=== PATIENT | female | born 1955 | race Caucasian/White ===

== ENCOUNTER 2019-01-02 10:56 | Day surgery (SDC) | payer MEDICARE, OTHER ==
[2018-12-31 13:10] VITALS: BMI 17.6
[~2019-01-02 10:56] MED LIST: ALBUTEROL NEB (CONC) 2.5 MG/0.5 ML INHALATION ONE; LACTATED RINGERS 1,000 ML IV SCH; LIDOCAINE 1% 20 ML VIAL (10MG/ML) FOR IV START INTRADERMA PRN; LIDOCAINE 2% (PF) 20 MG/ML 5 ML VIAL INHALATION ONE; LIDOCAINE VISCOUS 300 MG/15 ML CUP MUCOUS MEM ONE; SODIUM CHLORIDE 0.9% 1,000 ML IV SCH
[2019-01-02 11:13] VITALS: TEMP 97.5
[2019-01-02] MEDS ORDERED: PROPOFOL 10 MG/ML 20 ML VIAL IV ONE (11:55)
[2019-01-02] MEDS ORDERED: LIDOCAINE 1% INJ 10MG/ML (20 ML MDV) ONE (11:55)
[2019-01-02] MEDS ORDERED: MIDAZOLAM 2 MG/2 ML VIAL ONE (11:55)
[2019-01-02] MEDS ORDERED: LIDOCAINE 2% INJ 20 MG/ML INTRATRACH ONE (12:04)
[2019-01-02 12:57] VITALS: RESP 16
[2019-01-02 13:49] VITALS: BP 148/92; PULSE 78
--- NOTE | 2019-01-02 13:54 | XR ---
EXAMINATION TYPE: XR chest 1V portable DATE OF EXAM: 01/02/2019 COMPARISON: NONE HISTORY: Status post bronchoscopy and biopsy TECHNIQUE: Single frontal view of the chest is obtained. FINDINGS: Patient is rotated. Prominent lung volumes are compatible with underlying COPD. There is r ight hilar prominence. Right apical pleural thickening is present. No evident pneumothorax or pleural effusion. Heart is small. Aorta is dense. IMPRESSION: No evident complication status post lung biopsy.
--- NOTE | 2019-01-02 14:03 | PCN ---
PROCEDURE NOTE PREOPERATIVE DIAGNOSIS: Right upper lobe mediastinal lymphadenopathy. POSTOPERATIVE DIAGNOSIS: Right upper lobe mediastinal lymphadenopathy. PROCEDURE DESCRIPTION: This procedure was done under conscious sedation. The patient was brought into the endoscopy suite, and under conscious sedation, a flexible bronchoscopy was done. The bronchoscope was inserted in the left nostril and was advanced into the upper airway. Examination of the posterior pharynx, larynx, epiglottis and vocal cords were within normal limits and all of the upper airway structures were nonsignificant and within normal. Vocal cords were symmetric in the midline. A total of 2 mL of 1% lidocaine was applied to the vocal cords. Following that, the bronchoscope was sent into upper trachea and examination of the tracheobronchial tree was done. Trachea was within normal limits. The right mainstem bronchus was within normal; however, anteriorly at the distal right mainstem bronchus the bifurcation to the right upper lobe, there was some extrinsic compression, and some endobronchial irregularities, probably related to the right hilar lymphadenopathy. Bronchus intermedius was patent, right middle lobe, right lower lobe was seen and all of the segments and subsegments were within normal limits. Examination of the left side including the left mainstem bronchus., left upper lobe bronchus, left lower lobe bronchus and various segments and subsegments were within normal limits. At this point, the bronchoscope was moved to the main trachea and transbronchial needle aspirate of the subcarinal and right hilar lymph node was done. I used a 19-gauge cytology and a 21-gauge pathology needle. After taking several passes, the bronchoscope was moved to the right upper lobe, endobronchial biopsies of the right upper lobe, endobronchial irregularities of the distal right mainstem bronchus was done. Similarly, endobronchial brushings of this area was done. The patient tolerated the procedure well. We encountered some endobronchial bleeding at the site of the brushing and endobronchial biopsies in total amount to be less than 10 mL. The bleeding stopped spontaneously without any intervention. Bronchoscope was removed and the patient was transferred to recovery in stable condition. The patient will be monitored, discharged home once cleared by Anesthesia to be followed up with me in the office to discuss the results of the biopsy. MMODL / IJN: [id number] /
== END 2019-01-02 14:18 | disposition home or self-care (01) ==
LOC: ORWHC2ENDO 10:56
PROVIDERS: ATTEND Internal Medicine Critical Care Medicine
DX: C34.11 Malignant neoplasm of upper lobe, right bronchus or lung (principal); J44.1 Chronic obstructive pulmonary disease with (acute) exacerbation; G89.29 Other chronic pain; M54.9 Dorsalgia, unspecified; F17.210 Nicotine dependence, cigarettes, uncomplicated; Z79.899 Other long term (current) drug therapy; Z90.710 Acquired absence of both cervix and uterus; Z97.2 Presence of dental prosthetic device (complete) (partial); Z83.1 Family history of other infectious and parasitic diseases
CPT/HCPCS: 94640; 88104; 88305; 88173; 88342; 88341; 71045; 31629; 31623; J2001 ×3; J2250; J2704; 31625; 31633

== ENCOUNTER 2019-01-20 09:54 | Day surgery (SDC) | payer MEDICARE, OTHER ==
[2019-01-16 16:58] VITALS: BMI 16.9
[~2019-01-20 09:54] MED LIST changes: -ALBUTEROL NEB (CONC) 2.5 MG/0.5 ML INHALATION ONE; +DEXAMETHASONE SOD PHOSPHATE 10 MG/ML 1 ML VIAL IV ONE; -LIDOCAINE 2% (PF) 20 MG/ML 5 ML VIAL INHALATION ONE; -LIDOCAINE VISCOUS 300 MG/15 ML CUP MUCOUS MEM ONE; +MORPHINE SULFATE 2 MG/ML SYRINGE IV PRN; +ONDANSETRON 4 MG/2 ML VIAL IVP PRN; +Pre Op ABX Message 1 EACH MISC MISCELLANE ONE; -SODIUM CHLORIDE 0.9% 1,000 ML IV SCH
--- NOTE | 2019-01-20 10:34 | P.GSHP ---
History of Present Illness H&P Date: 01/20/19 Chief Complaint: Lung cancer Patient presents today for Port-A-Cath placement. Patient with recent diagnosis of lung cancer. She is to begin chemotherapy in the near future. She has not had a port previously. No access related issues that she is aware of. Past Medical History Past Medical History: Asthma, Cancer, COPD, GERD/Reflux, Osteoarthritis (OA), Skin Disorder Additional Past Medical History / Comment(s): "mass in rt lung", new "Small Cell Lung CA" diagnosed. epileptic (not currently on any rx for), last seizure 12/2018, occ palpitations mostly at noc, Psoriasis patches on legs,elbows and sca lp, "top of rt ear bit off age 15" History of Any Multi-Drug Resistant Organisms: None Reported Past Surgical History: Breast Surgery, Ear Surgery, Hysterectomy, Tonsillectomy Additional Past Surgical History / Comment(s): ryan breast lumpectomy ("d/t crystallization"), oral surgery, surgery on rt ear after injury. Bronchoscopy 01/02/19. Past Anesthesia/Blood Transfusion Reactions: Family History of Problems w/ Anesthesia Additional Past Anesthesia/Blood Transfusion Reaction / Comment(s): "dad on operative table-he had sepsis from blood clot in his leg" Smoking Status: Current every day smoker - Past Family History Father Family Medical History: Deep Vein Thrombosis (DVT) Additional Family Medical History / Comment(s): "Gangrene in leg, on the table," possible DVT Medications and Allergies Home Medications Medication Instructions Recorded Confirmed Type Acetaminophen [Tylenol Extra 500 - 1,000 mg PO DIRECTED PRN 12/31/18 01/20/19 History Strength] Albuterol Inhaler [Ventolin Hfa 1 - 2 puff INHALATION DIRECTED 12/31/18 01/20/19 History Inhaler] PRN Albuterol Nebulized [Ventolin 2.5 mg INHALATION TID PRN 12/31/18 01/20/19 History Nebulized] Ibuprofen [Advil] 200 mg PO Q8HR PRN 12/31/18 01/20/19 History Melatonin 3 mg PO HS 12/31/18 01/20/19 History Vitamin C/Biotin [Hair, Skin and 3 tab PO DAILY 12/31/18 01/20/19 History Nails] Famotidine [Pepcid AC] 10 mg PO DAILY PRN 01/16/19 01/20/19 History Tiotropium [place] [Spiriva] 1 cap INHALATION DAILY 01/16/19 01/20/19 History Allergies Allergy/AdvReac Type Severity Reaction Status Date / Time coconut Allergy gets dizzy Verified 01/20/19 10:10 and had a seizure mushroom Allergy SOB, Verified 01/20/19 10:10 tongue swelling Surgical - Exam Vital Signs Temp Pulse Resp BP Pulse Ox 97.6 F 107 H 17 171/84 96 01/20/19 10:12 01/20/19 10:12 01/20/19 10:12 01/20/19 10:12 01/20/19 10:12 Physical exam: General: Well-developed, well-nourished HEENT: Normocephalic, sclerae nonicteric Abdomen: Nontender, nondistended Extremities: No edema Neuro: Alert and oriented Assessment and Plan (1) Lung cancer Narrative/Plan: Will proceed with Port-A-Cath placement at this time. Risks of bleeding, infection, DVT, pneumothorax, catheter malfunction, anesthesia related complications were discussed. The patient understands and wishes to proceed. Current Visit: Yes Status: Acute Code(s): C34.90 - MALIGNANT NEOPLASM OF UNSP PART OF UNSP BRONCHUS OR LUNG SNOMED Code(s): 969676189
[2019-01-20] MEDS ORDERED: HEPARIN SODIUM,PORCINE 5,000 UNIT/ML 1 ML VIAL SQ ONE (10:50)
[2019-01-20] MEDS ORDERED: MIDAZOLAM 2 MG/2 ML VIAL ONE (10:55)
[2019-01-20] MEDS ORDERED: PROPOFOL 10 MG/ML 20 ML VIAL IV ONE (10:55)
[2019-01-20] MEDS ORDERED: LIDOCAINE 1% INJ 10MG/ML (20 ML MDV) ONE (10:55)
[2019-01-20] MEDS ORDERED: fentaNYL (PF) 50 MCG/ML 2 ML AMP ONE (10:55)
[2019-01-20] MEDS ORDERED: SODIUM CHLORIDE 0.9% 50 ML with ceFAZolin 2,000 MG IV ONE ×2 (11:08)
[2019-01-20] MEDS ORDERED: LIDOCAINE (PF) 10 MG/ML 2 ML VIAL SQ ONE ×2 (11:25)
[2019-01-20] MEDS ORDERED: HEPARIN SODIUM,PORCINE 100 UNIT/ML 5 ML VIAL IV ONE (11:29)
[2019-01-20] MEDS ORDERED: HYDROcodone/APAP 5-325MG 1 EACH TAB PO PRN (12:07)
[2019-01-20] MEDS ORDERED: NALOXONE 0.4 MG/ML 1 ML VIAL IV PRN (12:07)
[2019-01-20 12:10] VITALS: TEMP 98.1
--- NOTE | 2019-01-20 12:16 | P.OP ---
Date of Procedure: 01/20/19 Procedure(s) Performed: PREOPERATIVE DIAGNOSIS: Lung cancer, right neck skin tag POSTOPERATIVE DIAGNOSIS: Same PROCEDURE: Port-A-Cath placement, excision right neck skin tag SURGEON: Matt EBL: Minimal ANESTHESIA: Sedation COMPLICATIONS: None OPERATIVE PROCEDURE: Patient was brought and placed on the operative table in the supine position. The patient was sedated per anesthesia that time. The chest and neck were prepped and draped in usual sterile fashion. The ultrasound probe was used to identify the location of the right internal jugular vein. The skin was localized with lidocaine. The Seldinger needle was advanced into the IJ under ultrasound guidance. The wire was advanced through the needle under fluoroscopic guidance into the superior vena cava. A port pocket was created in the right infraclavicular location. The catheter was tunneled from the wire entrance site to the port pocket. The port was then connected to the catheter. The dilator introducer was threaded over the guidewire. The guidewire and dilator were then removed. The catheter was advanced through the introducer and introducer was then removed. The tip was seen to be in the right atrial junction. Port was flushed with both saline and a Hep-Lock solution. There was good flow both in and out of the port. The port was sutured in underlying tissues using 3-0 silk sutures. The subcutaneous tissues were reapproximated using 3-0 Vicryl sutures and the skin at both locations using 4-0 Monocryl sutures. Following that the small skin tag present in the upper aspect of the patient's right neck was excised sharply. Spot cautery was used. Bacitracin was applied. Skin tag was not sent to pathology. Skin glue and sterile dressings then applied. DISPOSITION: Stable to recovery room
--- NOTE | 2019-01-20 13:07 | XR ---
EXAMINATION TYPE: XR chest 1V confirm line [facility] DATE OF EXAM: 01/20/2019 COMPARISON: 01/02/2019 HISTORY: Line placement TECHNIQUE: Single frontal view of the chest is obtained. FINDINGS: There is no focal air space opacity, pleural effusion, or pneumothorax seen. The cardiac silhouette size is within normal limits. The osseous structures are intact. Stable right apical ple ural thickening or mass. Mediport seen with tip overlying the SVC. Hyperinflation suggests COPD. Athe rosclerotic change aorta. Pulmonary arteries and right hilum are enlarged. Adenopathy in the right hi lum not excluded. IMPRESSION: 1. Right hilar enlargement correlate for adenopathy or mass. There also is right apical pleural-based nodularity is stable from prior exam underlying neoplasm or inflammatory change in the differential diagnosis. 2. Mediport appears in good position with tip overlying the SVC. No sizable pneumothorax.
[2019-01-20] MEDS ORDERED: HYDROcodone/APAP 5-325MG 1 EACH TAB PO ONE (13:31)
[2019-01-20 13:35] VITALS: BP 160/85; PULSE 94; RESP 18
--- NOTE | 2019-01-21 10:55 | FL ---
EXAMINATION TYPE: FL guided central line placement HISTORY: Fluoroscopy time Impression: 1. Fluoroscopy support provided to the referring physician 15 seconds. THANIA
== END 2019-01-20 14:15 | disposition home or self-care (01) ==
LOC: OR 09:54
PROVIDERS: ATTEND Surgery
DX: C34.91 Malignant neoplasm of unspecified part of right bronchus or lung (principal); L91.8 Other hypertrophic disorders of the skin; J44.9 Chronic obstructive pulmonary disease, unspecified; K21.9 Gastro-esophageal reflux disease without esophagitis; M19.90 Unspecified osteoarthritis, unspecified site; G40.909 Epilepsy, unspecified, not intractable, without status epilepticus; L40.9 Psoriasis, unspecified; R00.2 Palpitations; F17.210 Nicotine dependence, cigarettes, uncomplicated; Z90.710 Acquired absence of both cervix and uterus; Z79.1 Long term (current) use of non-steroidal anti-inflammatories (NSAID); Z79.899 Other long term (current) drug therapy; Z91.018 Allergy to other foods
CPT/HCPCS: 36561; 77001 ×2; 76937; 11200; C1788; J2250; J2001 ×2; J1644; J1642; J1100; J2405; J0690; J3010; J2704; 77002

== ENCOUNTER 2019-01-24 12:21 | Observation (INO) | payer MEDICARE, OTHER ==
[2019-01-24] MEDS ORDERED: SODIUM CHLORIDE 0.9% 500 ML 500 ML IV STA (12:34)
--- NOTE | 2019-01-24 12:40 | ED ---
General Adult HPI - General Chief complaint: Shortness of Breath Stated complaint: SOB/lower back pain Time Seen by Provider: 01/24/19 12:25 Source: EMS, RN notes reviewed Mode of arrival: EMS Limitations: no limitations - History of Present Illness Initial comments: This is a 63-year-old female with a past medical history significant for COPD and small cell lung cancer which she was diagnosed with one month ago. Patient states last night she started having difficulty breathing and she took some breathing treatments but it did not seem to help. Patient states she called EMS when EMS got there they gave her some steroids as well as a breathing treatment she feels considerably better. Patient states she also has a squeezing sensation in her chest after she had a breathing treatment. Patient denies any fever chills or cough. Patient denies lightheadedness dizziness or near syncopal episode. Patient denies abdominal pain patient has nausea vomiting diarrhea. - Related Data Home Medications Medication Instructions Recorded Confirmed Acetaminophen [Tylenol Extra 500 - 1,000 mg PO Q4H PRN 12/31/18 01/24/19 Strength] Albuterol Inhaler [Ventolin Hfa 1 - 2 puff INHALATION RT-Q4H PRN 12/31/18 Inhaler] Albuterol Nebulized [Ventolin 2.5 mg INHALATION RT-TID PRN 12/31/18 01/24/19 Nebulized] Tiotropium [place] [Spiriva] 1 cap INHALATION RT-DAILY 01/16/19 01/24/19 Previous Rx's Medication Instructions Recorded Hydrocodone/Acetaminophen [[place] 1 tab PO Q4-6H PRN 3 Days #18 tab 01/20/19 5-325] Allergies Allergy/AdvReac Type Severity Reaction Status Date / Time coconut Allergy gets dizzy Verified 01/24/19 12:32 and had a seizure mushroom Allergy SOB, Verified 01/24/19 12:32 tongue swelling Review of Systems ROS Statement: Those systems with pertinent positive or pertinent negative responses have been documented in the HPI. ROS Other: All systems not noted in ROS Statement are negative. Past Medical History Past Medical History: Asthma, Cancer, COPD, GERD/Reflux, Osteoarthritis (OA), Skin Disorder Additional Past Medical History / Comment(s): "mass in rt lung", new "Small Cell Lung CA" diagnosed. epileptic (not currently on any rx for), last seizure 12/2018, occ palpitations mostly at noc, Psoriasis patches on legs,elbows and sca lp, "top of rt ear bit off age 15" History of Any Multi-Drug Resistant Organisms: None Reported Past Surgical History: Breast Surgery, Ear Surgery, Hysterectomy, Tonsillectomy Additional Past Surgical History / Comment(s): ryan breast lumpectomy ("d/t crystallization"), oral surgery, surgery on rt ear after injury. Bronchoscopy 01/02/19. Past Anesthesia/Blood Transfusion Reactions: Family History of Problems w/ Anesthesia Additional Past Anesthesia/Blood Transfusion Reaction / Comment(s): "dad on operative table-he had sepsis from blood clot in his leg" Past Psychological History: Depression Smoking Status: Current every day smoker Past Alcohol Use History: Daily Past Drug Use History: None Reported - Past Family History Father Family Medical History: Deep Vein Thrombosis (DVT) Additional Family Medical History / Comment(s): "Gangrene in leg, on the table," possible DVT General Exam - General Exam Comments Initial Comments: GENERAL: Patient is well-developed and well-nourished. Patient is nontoxic and well- hydrated and is in mild distress. ENT: Neck is soft and supple. No significant lymphadenopathy is noted. Oropharynx is clear. Moist mucous membranes. Neck has full range of motion without e liciting any pain. EYES: The sclera were anicteric and conjunctiva were pink and moist. Extraocular movements were intact and pupils were equal round and reactive to light. Eyelids were unremarkable. PULMONARY: Unlabored respirations. Good breath sounds bilaterally. No audible rales rhonchi or wheezing was noted. CARDIOVASCULAR: There is a regular rate and rhythm without any murmurs gallops or rubs. ABDOMEN: Soft and nontender with normal bowel sounds. No palpable organomegaly was no lacey. There is no palpable pulsatile mass. SKIN: Skin is clear with no lesions or rashes and otherwise unremarkable. NEUROLOGIC: Patient is alert and oriented x3. Cranial nerves II through XII are grossly intact. Motor and sensory are also intact. Normal speech, volume and content. Symmetrical smile. MUSCULOSKELETAL: Normal extremities with adequate strength and full range of motion. No lower extremity swelling or edema. No calf tenderness. LYMPHATICS: No significant lymphadenopathy is noted PSYCHIATRIC: Normal psychiatric evaluation. Limitations: no limitations Course Vital Signs 10/01/24/19 01/24/19 12:23 12:27 12:30 Temperature 98.0 F Pulse Rate 90 76 Respiratory 20 18 Rate Blood Pressure 153/81 153/81 O2 Sat by Pulse 95 96 96 Oximetry 01/24/19 01/24/19 01/24/19 13:00 13:30 14:00 Temperature Pulse Rate 78 76 84 Respiratory 16 18 16 Rate Blood Pressure 131/97 132/87 130/78 O2 Sat by Pulse Oximetry 01/24/19 14:30 Temperature 98.0 F Pulse Rate 82 Respiratory 20 Rate Blood Pressure 132/79 O2 Sat by Pulse Oximetry Medical Decision Making - Medical Decision Making EKG shows sinus rhythm with occasional PVC at a rate of 91 bpm NH interval 218 QRS is 90 QT interval 398 QTC is 489. Patient's EKG shows no ST segment elevation. Patient's computed tomography scan showed significant mass effect on the right upper lobe from the neoplasm there is also significant adenopathy. Patient was post have a PET scan today at the hospital but because she was in the emergency department she missed that appointment. I spoke with some physicians and he agreed to accept the patient accept the patient and I wrote admitting orders. - Lab Data Result diagrams: 01/24/19 12:49 01/24/19 12:49 Lab Results 01/24/19 01/24/19 01/24/19 Range/Units 12:49 12:49 12:49 WBC 7.0 (3.8-10.6) k/uL RBC 4.20 (3.80-5.40) m/uL Hgb 13.6 (11.4-16.0) gm/dL Hct 41.2 (34.0-46.0) % MCV 98.1 (80.0-100.0) fL MCH 32.4 (25.0-35.0) pg MCHC 33.0 (31.0-37.0) g/dL RDW 13.7 (11.5-15.5) % Plt Count 156 (150-450) k/uL Neutrophils % 81 % Lymphocytes % 12 % Monocytes % 5 % Eosinophils % 1 % Basophils % 1 % Neutrophils # 5.7 (1.3-7.7) k/uL Lymphocytes # 0.8 L (1.0-4.8) k/uL Monocytes # 0.3 (0-1.0) k/uL Eosinophils # 0.1 (0-0.7) k/uL Basophils # 0.1 (0-0.2) k/uL PT 10.4 (9.0-12.0) sec INR 1.0 (<1.2) APTT 22.8 (22.0-30.0) sec D-Dimer 1.70 H (<0.60) mg/L FEU Sodium 140 (137-145) mmol/L Potassium 4.6 (3.5-5.1) mmol/L Chloride 109 H (98-107) mmol/L Carbon Dioxide 19 L (22-30) mmol/L Anion Gap 12 mmol/L BUN 15 (7-17) mg/dL Creatinine 0.56 (0.52-1.04) mg/dL Est GFR (CKD-EPI)AfAm >90 (>60 ml/min/1.73 sqM) Est GFR (CKD-EPI)NonAf >90 (>60 ml/min/1.73 sqM) Glucose 101 H (74-99) mg/dL Calcium 9.2 (8.4-10.2) mg/dL Magnesium 1.7 (1.6-2.3) mg/dL Total Bilirubin 1.4 H (0.2-1.3) mg/dL AST 79 H (14-36) U/L ALT 15 (9-52) U/L Alkaline Phosphatase 68 (38-126) U/L Troponin I (0.000-0.034) ng/mL Total Protein 7.1 (6.3-8.2) g/dL Albumin 4.2 (3.5-5.0) g/dL 01/24/19 Range/Units 12:49 WBC (3.8-10.6) k/uL RBC (3.80-5.40) m/uL Hgb (11.4-16.0) gm/dL Hct (34.0-46.0) % MCV (80.0-100.0) fL MCH (25.0-35.0) pg MCHC (31.0-37.0) g/dL RDW (11.5-15.5) % Plt Count (150-450) k/uL Neutrophils % % Lymphocytes % % Monocytes % % Eosinophils % % Basophils % % Neutrophils # (1.3-7.7) k/uL Lymphocytes # (1.0-4.8) k/uL Monocytes # (0-1.0) k/uL Eosinophils # (0-0.7) k/uL Basophils # (0-0.2) k/uL PT (9.0-12.0) sec INR (<1.2) APTT (22.0-30.0) sec D-Dimer (<0.60) mg/L FEU Sodium (137-145) mmol/L Potassium (3.5-5.1) mmol/L Chloride (98-107) mmol/L Carbon Dioxide (22-30) mmol/L Anion Gap mmol/L BUN (7-17) mg/dL Creatinine (0.52-1.04) mg/dL Est GFR (CKD-EPI)AfAm (>60 ml/min/1.73 sqM) Est GFR (CKD-EPI)NonAf (>60 ml/min/1.73 sqM) Glucose (74-99) mg/dL Calcium (8.4-10.2) mg/dL Magnesium (1.6-2.3) mg/dL Total Bilirubin (0.2-1.3) mg/dL AST (14-36) U/L ALT (9-52) U/L Alkaline Phosphatase (38-126) U/L Troponin I <0.012 (0.000-0.034) ng/mL Total Protein (6.3-8.2) g/dL Albumin (3.5-5.0) g/dL Disposition Clinical Impression: COPD exacerbation, History of lung cancer Disposition: ADMITTED IP TO THIS HOSP Referrals: None,Stated [Primary Care Provider] - 1-2 days Time of Disposition: 15:42
[2019-01-24 13:10] LABS: Basophils # (A) 0.1 k/uL (0-0.2); Basophils % (A) 1 %; Eosinophils # (A) 0.1 k/uL (0-0.7); Eosinophils % (A) 1 %; HCT 41.2 % (34.0-46.0); HGB 13.6 gm/dL (11.4-16.0); Lymphocytes # (A) 0.8 k/uL (1.0-4.8); Lymphocytes % (A) 12 %; MCH 32.4 pg (25.0-35.0); MCV 98.1 fL (80.0-100.0); Mean Platelet Volume 7.4; Monocytes # (A) 0.3 k/uL (0-1.0); Monocytes % (A) 5 %; Neutrophils # (A) 5.7 k/uL (1.3-7.7); Neutrophils % (A) 81 %; Platelet Count 156 k/uL (150-450); RDW 13.7 % (11.5-15.5)
--- NOTE | 2019-01-24 13:21 | XR ---
EXAMINATION TYPE: XR chest 2V DATE OF EXAM: 01/24/2019 COMPARISON: Chest x-ray 4 days ago. Outside CTA chest December 11, 2018. HISTORY: Difficulty breathing border. Right-sided chest pain today. TECHNIQUE: Frontal and lateral views of the chest are obtained. FINDINGS: There is stable right internal jugular Mediport catheter. Background chronic emphysematous change with right apical masslike pleural thickening redemonstrated. No new focal airspace opacity, pleural effusion, or pneumothorax. Persistent right hilar fullness corresponding to mass or adenopath y. Atherosclerotic change in the thoracic aorta. Osseous structures are intact. Cardiac silhouette size remains within normal limits. IMPRESSION: Overall stable findings from most recent x-ray. Chronic changes without acute pulmonary process.
[2019-01-24 13:24] LABS: ALT 15 U/L (9-52); AST 79 U/L (14-36); African American GFR (CKD) >90 (>60 ml/min/1.73 sqM); Albumin 4.2 g/dL (3.5-5.0); Alkaline Phosphatase 68 U/L (38-126); Anion Gap 12 mmol/L; Blood Urea Nitrogen 15 mg/dL (7-17); Calcium 9.2 mg/dL (8.4-10.2); Carbon Dioxide 19 mmol/L (22-30); Chloride 109 mmol/L (98-107); Glucose 101 mg/dL (74-99); Magnesium 1.7 mg/dL (1.6-2.3); Non-African American GFR(CKD) >90 (>60 ml/min/1.73 sqM); Prothrombin Time 10.4 sec (9.0-12.0); Sodium 140 mmol/L (137-145); Total Bilirubin 1.4 mg/dL (0.2-1.3); Total Protein 7.1 g/dL (6.3-8.2)
[2019-01-24 13:25] LABS: Partial Thromboplastin Time 22.8 sec (22.0-30.0)
[2019-01-24 13:46] LABS: Potassium 4.6 mmol/L (3.5-5.1)
[2019-01-24 14:20] LABS: D-Dimer 1.7 mg/L FEU (<0.60)
--- NOTE | 2019-01-24 15:28 | CT ---
EXAMINATION TYPE: CT chest angio for PE DATE OF EXAM: 01/24/2019 COMPARISON: Outside CT dated 12/11/2018 HISTORY: Difficulty breathing, back pain and elevated d-dimer. CT DLP: 210.5 mGycm. Automated Exposure Control for Dose Reduction was Utilized. CONTRAST: CTA scan of the thorax is performed with IV Contrast, patient injected with 80 mL of Isovue 370, pulm onary embolism protocol. MIP Images are created on CT scanner and reviewed. FINDINGS: LUNGS: There is a right perihilar mass encasing the hilar vasculature with mass effect on the right u pper lobe pulmonary arteries and bronchi. This mass measures 6.7 x 4.1 cm. There is associated peribr onchial cuffing and downstream atelectasis remaining in the suprahilar region from this mass. There is a second right apical mass measuring 3.4 x 3.6 cm that is pleural-based. This is of the righ t lung apex laterally. Medial pleural thickening is also seen. Findings are superimposed upon advance d centrilobular emphysematous change. Multiple satellite nodules are seen inferiorly with the farthes t inferior measuring 5 mm on lung algorithm image 42. Other pulmonary nodules are sub-5 mm in the ant erior right upper lobe and subpleural space. Right middle lobe pulmonary nodule is solid and 3 mm. 2 mm subpleural nodules also seen in the right middle lobe. Focal pleural thickening in the right middl e lobe is marked on image 103. Few other areas of pleural thickening are seen on the right. Minimal r ight basilar subsegmental atelectasis. On the left there are a few scattered subcentimeter nodules an d nodular left apical pleural parenchymal scarring. 3 mm solid nodule on image 37. 5 mm nodule on the left lung base on image 121. 2 mm solid nodule in the left lower lobe on image 117. Suspicious 8 mm pulmonary nodule in the superior segment of the left lower lobe on image 72 is solid. MEDIASTINUM: There is satisfactory enhancement of the pulmonary artery and its branches, there is no CT evidence for pulmonary embolism. Subcarinal lymph node measures 1.2 cm in short axis. Conglomerati on of right hilar lymph nodes is inseparable from the mass as well as pretracheal abnormal lymph node abutting the mass measuring 1.6 cm in short axis. Superior mediastinal lymph nodes measure up to 7 m m in short axis on image 36. Prominent right supraclavicular lymph nodes are seen measuring up to 8 m m in short axis. No cardiomegaly or pericardial effusion is seen. OTHER: Right-sided Mediport is seen. IMPRESSION: Right perihilar infiltrative mass extending into the mediastinum and narrowing the right upper lobe bronchi compatible with neoplasm. Endobronchial biopsy would be recommended. Pathologic me diastinal adenopathy is also seen. Second right apical mass is also suspicious as well as multiple ad ditional subcentimeter pulmonary nodules with the largest in the left upper lobe measuring [address] is recommended for these additional sites as well as prominent supraclavicular lymph nodes. No cj dence of pulmonary embolus.
[2019-01-24] MEDS: IPRATROPIUM-ALBUTEROL 3 ML NEB INHALATION SCH ×2 (16:32→19:46)
--- NOTE | 2019-01-24 17:01 | P.CNPUL ---
History of Present Illness Consult date: 01/24/19 Requesting physician: Patricia Balbuena Reason for consult: dyspnea, abnormal CXR/CT Chief complaint: Shortness of breath History of present illness: This is a very pleasant 63-year-old female patient lives on [address] and the patient carries approximately [id number] smoking history. The patient had presented to an outside hospital because of the pain across her chest that was quite nonspecific and was skeletal in nature. The right chest was sore to touch. No hemoptysis. She had also increased dyspnea, cough, chest congestion and wheezing. She was an acute COPD exacerbation. A CAT scan of the chest was done in the hospital that showed a masslike infiltrate abutting the pleura in the right upper lobe in addition to mediastinal lymphadenopathy involving the right hilum and anterior tracheal area with the largest lymph node measuring 2.5 cm. She is a smoker. The patient underwent a bronchoscopy and airway inspection is showed some endobronchial irregularities at the martha between the right upper lobe there was some extrinsic compression and some endobronchial irregularities probably from the underlying right hilar lymph node/mass. On 01/02/2019 Dr. Little performed biopsies included transbronchial needle aspirate and transbronchial biopsies that showed poorly differentiated neoplasm consistent with small cell lung cancer. She is aware of the diagnosis. She was last seen in our office 01/08/2019. She was given referrals for both medical and radiation oncology. MRA of the brain and PET scan were ordered as well. She presented here to the emergency room today after developing increasing shortness of breath cough and congestion. She was also having squeezing sensation in her chest. Chest x-ray revealed chronic changes but no acute pulmonary process. CT angiogram revealed no evidence of pulmonary embolus. There is a right perihilar infiltrative mass extending into the mediastinum and narrowing the right upper lobe bronchi compatible with neoplasm. Pathologic mediastinal adenopathy is also present. There is a second right apical mass as well as multiple additional subcentimeter pulmonary nodules with the largest in the left upper lobe measuring 8 mm. His been afebrile. Maintaining O2 saturations in the high 90s on 2 L/m per nasal cannula. Hemodynamically stable. White count 7.0. Hemoglobin 13.6. Sodium 140. Potassium 4.6. Chloride 109. Bicarb 19. Creatinine 0.56. Blood and negative times one. Calcium 9.2. She's been initiated and DuoNeb inhalations and IV Solu-Medrol. She is seen today in consultation on the oncology unit. Currently awake and alert in no acute distress. Review of Systems Patient reports shortness of breath when walking but reports no chest pain, no arm pain on exertion, no shortness of breath when lying down, no palpitations, and no known heart murmur. She reports cough and shortness of breath but reports no wheezing, no coughing up blood, and no sleep apnea. She reports no fever, no night sweats, no significant weight gain, no significant weight loss, and no ex ercise intolerance. She reports no dry eyes, no vision change, and no irritation. She reports no difficulty hearing and no ear pain. She reports no frequent nosebleeds, no nose problems, and no sinus problems. She reports no sore throat, no bleeding gums, no snoring, no dry mouth, no mouth ulcers, no oral abnormalities, and no teeth problems. She reports no abdominal pain, no nausea, no vomiting, no constipation, normal appetite, no diarrhea, not vomiting blood, no dyspepsia, and no GERD. She reports no incontinence, no difficulty urinating, no hematuria, and no increased frequency. She reports no muscle aches, no muscle weakness, no arthralgias/joint pain, no back pain, and no swelling in the extremities. She reports no abnormal mole, no jaundice, no rashes, and no laceration. She reports no loss of consciousness, no weakness, no numbness, no seizures, no dizziness, no migraines, no headaches, and no tremor. She reports no depression, no sleep disturbances, feeling safe in a relations hip, no alcohol abuse, no anxiety, no hallucinations, and no suicidal thoughts. She reports no fatigue. She reports no swollen glands, no bruising, and no excessive bleeding. She reports no runny nose, no sinus pressure, no itching, no hives, and no frequent sneezing. Past Medical History Past Medical History: Asthma, Cancer, COPD, GERD/Reflux, Osteoarthritis (OA), Skin Disorder Additional Past Medical History / Comment(s): "mass in rt lung", new "Small Cell Lung CA" diagnosed. epileptic (not currently on any rx for), last seizure 12/2018, occ palpitations mostly at noc, Psoriasis patches on legs,elbows and scalp, "top of rt ear bit off age 15" History of Any Multi-Drug Resistant Organisms: None Reported Past Surgical History: Breast Surgery, Ear Surgery, Hysterectomy, Tonsillectomy Additional Past Surgical History / Comment(s): ryan breast lumpectomy ("d/t crystallization"), oral surgery, surgery on rt ear after injury. Bronchoscopy 01/02/19. Past Anesthesia/Blood Transfusion Reactions: Family History of Problems w/ An esthesia Additional Past Anesthesia/Blood Transfusion Reaction / Comment(s): "dad on operative table-he had sepsis from blood clot in his leg" Past Psychological History: Depression Smoking Status: Current every day smoker Past Alcohol Use History: Daily Past Drug Use History: None Reported - Past Family History Father Family Medical History: Deep Vein Thrombosis (DVT) Additional Family Medical History / Comment(s): "Gangrene in leg, on the table," possible DVT Medications and Allergies Home Medications Medication Instructions Recorded Confirmed Type Acetaminophen [Tylenol Extra 500 - 1,000 mg PO Q4H PRN 12/31/18 01/24/19 History Strength] Albuterol Inhaler [Ventolin Hfa 1 - 2 puff INHALATION RT-Q4H PRN 12/31/1801/07 History Inhaler] Albuterol Nebulized [Ventolin 2.5 mg INHALATION RT-TID PRN 12/31/18 01/24/19 History Nebulized] Tiotropium [place] [Spiriva] 1 cap INHALATION RT-DAILY 01/16/19 01/24/19 History Hydrocodone/Acetaminophen [[place] 1 tab PO Q4-6H PRN 3 Days #18 tab 01/20/19 01/24/19 Rx 5-325] Allergies Allergy/AdvReac Type Severity Reaction Status Date / Time coconut Allergy gets dizzy Verified 01/24/19 12:32 and had a seizure mushroom Allergy SOB, Verified 01/24/19 12:32 tongue swelling Physical Exam Vitals: Vital Signs Temp Pulse Resp BP Pulse Ox 01/24/19 16:30 98.1 F 98 18 140/81 98 01/24/19 16:00 85 16 124/66 96 01/24/19 15:30 82 15 137/69 01/24/19 15:00 89 10 L 114/68 98 01/24/19 14:30 98.0 F 82 20 132/79 01/24/19 14:00 84 16 130/78 01/24/19 13:30 76 18 132/87 01/24/19 13:00 78 16 131/97 01/24/19 12:30 76 18 153/81 96 01/24/19 12:27 96 01/24/19 12:23 98.0 F 90 20 153/81 95 Intake and Output 01/24/19 01/24/19 01/24/19 06:59 14:59 22:59 Other: Weight 45.359 kg GENERAL EXAM: Alert, pleasant 63-year-old female patient, comfortable in no apparent distress. On 2 L nasal cannula. HEAD: Normocephalic. EYES: Normal reaction of pupils, equal size. NOSE: Clear with pink turbinates. THROAT: No erythema or exudates. NECK: No masses, no JVD. CHEST: No chest wall deformity. LUNGS: Equal air entry with scattered rhonchi, end expiratory wheeze, diminished. CVS: S1 and S2 normal with no audible murmur, regular rhythm. ABDOMEN: No hepatosplenomegaly, normal bowel sounds, no guarding or rigidity. SPINE: No scoliosis or deformity SKIN: No rashes CENTRAL NERVOUS SYSTEM: No focal deficits, tone is normal in all 4 extremities. EXTREMITIES: There is no peripheral edema. No clubbing, no cyanosis. Peripheral pulses are intact. Results - Laboratory Findings CBC and BMP: 01/24/19 12:49 01/24/19 12:49 PT/INR, D-dimer PT 10.4 sec (9.0-12.0) 01/24/19 12:49 INR 1.0 (<1.2) 01/24/19 12:49 D-Dimer 1.70 mg/L FEU (<0.60) H 01/24/19 12:49 Abnormal lab findings: Abnormal Labs 01/24/19 01/24/19 01/24/19 12:49 12:49 12:49 Lymphocytes # 0.8 L D-Dimer 1.70 H Chloride 109 H Carbon Dioxide 19 L Glucose 101 H Total Bilirubin 1.4 H AST 79 H - Diagnostic Findings Chest x-ray: image reviewed CT scan - chest: image reviewed Assessment and Plan Assessment: Impression: #1 Acute exacerbation of moderate chronic obstructive pulmonary disease. FEV1 value 51% of predicted. #2 Recent diagnosis of small cell lung cancer, bronchoscopy with biopsies performed on 01/02/2018. Medical and radiation oncology referrals were made. MRI of the brain and PET scan are pending. #3 Chronic and ongoing tobacco dependence of 50 years at 1 pack per day. #4 History of marijuana use. #5 History of seizure disorder Plan: The patient was seen and evaluated by Dr. Little. Chest x-ray, CAT scans and labs all reviewed. We will continue with her treatment for COPD exacerbation. Add Pulmicort and Perforomist inhalations, continue DuoNeb inhalations, continue IV Solu-Medrol. She is again educated regarding the importance of complete smoking cessation. NicoDerm patch is applied. We will continue to follow and make further recommendations based on her clinical status. I, the cosigning physician, performed a history & physical examination of the patient. Lungs sounds with few scattered rhonchi, end expiratory wheeze, diminished Maintaining good O2 saturations in the 90s on 2 liters per minute per nasal cannula. I discussed the assessment and plan of care with my nurse practitioner, Cynthia Crowell. I attest to the above note as dictated by her. Time with Patient: Greater than 30
--- NOTE | 2019-01-24 17:30 | P.HPIM ---
History of Present Illness H&P Date: 01/24/19 Chief Complaint: Shortness of breath This is 63-year-old white female who has known history of lung cancer and COPD who reported to the emergency room because of increased shortness of breath. She also reports chronic chest pain that is not much different than baseline. She reports increase in shortness of breath in the past few days associated with dry cough and occasional wheezing. A CAT scan of the chest was done in the hospital that showed a masslike infiltrate abutting the pleura in the right upper lobe in addition to mediastinal lymphadenopathy involving the right hilum and anterior tracheal area with the largest lymph node measuring 2.5 cm The patient underwent a bronchoscopy and airway inspection is showed some endobronchial irregularities at the martha between the right upper lobe there was some extrinsic compression and some endobronchial irregularities probably from the underlying right hilar lymph node/mass. On 01/02/2019 Dr. Little performed biopsies included transbronchial needle aspirate and transbronchial biopsies that showed poorly differentiated neoplasm consistent with small cell lung cancer. She was supposed to have a brain MRA and a PET scan as an outpatient today, but she reported to the emergency room. At the time of examination patient is slightly confused but does not appear to be in distress. She denies nausea vomiting or abdominal pain. Review of Systems 10 systems reviewed, pertinent positive and negative findings as in HPI, no abdominal pain, positive for shortness of breath. Past Medical History Past Medical History: Asthma, Cancer, COPD, GERD/Reflux, Osteoarthritis (OA), Skin Disorder Additional Past Medical History / Comment(s): "mass in rt lung", new "Small Cell Lung CA" diagnosed. epileptic (not currently on any rx for), last seizure 12/2018, occ palpitations mostly at noc, Psoriasis patches on legs,elbows and scalp, "top of rt ear bit off age 15" History of Any Multi-Drug Resistant Organisms: None Reported Past Surgical History: Breast Surgery, Ear Surgery, Hysterectomy, Tonsillectomy Additional Past Surgical History / Comment(s): ryan breast lumpectomy ("d/t crystallization"), oral surgery, surgery on rt ear after injury. Bronchoscopy 01/02/19. Past Anesthesia/Blood Transfusion Reactions: Family History of Problems w/ Anesthesia Additional Past Anesthesia/Blood Transfusion Reaction / Comment(s): "dad on operative table-he had sepsis from blood clot in his leg" Past Psychological History: Depression Smoking Status: Current every day smoker Past Alcohol Use History: Daily Past Drug Use History: None Reported - Past Family History Father Family Medical History: Deep Vein Thrombosis (DVT) Additional Family Medical History / Comment(s): "Gangrene in leg, on the table," possible DVT Medications and Allergies Home Medications Medication Instructions Recorded Confirmed Type Acetaminophen [Tylenol Extra 500 - 1,000 mg PO Q4H PRN 12/31/18 01/24/19 History Strength] Albuterol Inhaler [Ventolin Hfa 1 - 2 puff INHALATION RT-Q4H PRN 12/31/18 01/24/19 History Inhaler] Albuterol Nebulized [Ventolin 2.5 mg INHALATION RT-TID PRN 12/31/18 01/24/19 History Nebulized] Tiotropium [place] [Spiriva] 1 cap INHALATION RT-DAILY 01/16/19 01/24/19 History Hydrocodone/Acetaminophen [[place] 1 tab PO Q4-6H PRN 3 Days #18 tab 01/20/19 01/24/19 Rx 5-325] Allergies Allergy/AdvReac Type Severity Reaction Status Date / Time coconut Allergy gets dizzy Verified 01/24/19 12:32 and had a seizure mushroom Allergy SOB, Verified 01/24/19 12:32 tongue swelling Physical Exam Vitals: Vital Signs Temp Pulse Pulse Resp BP BP Pulse Ox 01/24/19 17:17 98.2 F 96 20 143/79 97 01/24/19 16:30 98.1 F 98 18 140/81 98 01/24/19 16:00 85 16 124/66 96 01/24/19 15:30 82 15 137/69 01/24/19 15:00 89 10 L 114/68 98 01/24/19 14:30 98.0 F 82 20 132/79 01/24/19 14:00 84 16 130/78 01/24/19 13:30 76 18 132/87 01/24/19 13:00 78 16 131/97 01/24/19 12:30 76 18 153/81 96 01/24/19 12:27 96 01/24/19 12:23 98.0 F 90 20 153/81 95 Intake and Output 01/24/19 01/24/19 01/24/19 06:59 14:59 22:59 Other: Weight 45.359 kg Constitutional: No acute distress Eyes: Anicteric sclerae ENMT: NC/AT Neck:Supple, FROM Lungs: Decreased breath sounds, scattered wheezing Cardiovascular: Heart regular in rate and rhythm, No murmurs, gallops, or rubs no peripheral edema Abdominal: Soft Nontender, nom distended, no guarding, no rebound or rigidity Skin: Normal temperature, tone, texture, turgor, No induration No subcutaneous nodules, No rash, lesions, No ulcers Extremities:No digital cyanosis No clubbing Psychiatric: Alert and oriented to person, place and time Neuro: Muscles Strength 5/5 in all 4 extremities, Sensation to light touch grossly present throughout, Cranial nerves II-XII grossly intact. No focal sensory deficits Results CBC & Chem 7: 01/24/19 12:49 01/24/19 12:49 Labs: Abnormal Lab Results - Last 24 Hours (Table) 01/24/19 01/24/19 01/24/19 Range/Units 12:49 12:49 12:49 Lymphocytes # 0.8 L (1.0-4.8) k/uL D-Dimer 1.70 H (<0.60) mg/L FEU Chloride 109 H (98-107) mmol/L Carbon Dioxide 19 L (22-30) mmol/L Glucose 101 H (74-99) mg/dL Total Bilirubin 1.4 H (0.2-1.3) mg/dL AST 79 H (14-36) U/L Assessment and Plan Plan: 1. Acute on chronic COPD exacerbation with hypoxia but no respiratory failure: Oxygen and bronchodilators, appreciate pulmonology input, IV steroids. 2. Small cell lung cancer unknown stage: Patient was supposed to have a PET scan as an outpatient, as well as a brain MRA. Obtain brain and MRA 3. Tobacco use without evidence of withdrawal: Nicotine patch as indicated 4. History of seizures: Not on medications 5. DVT prophylaxis: SCDs Disposition: Home in 1-2 days
[2019-01-24] MEDS: HYDROcodone/APAP 5-325MG 1 EACH TAB PO PRN ×2 (18:13→21:31)
[2019-01-24] MEDS: methylPREDNISolone SOD SUCCI 125 MG/2 ML VIAL IV SCH (18:19)
[2019-01-24] MEDS ORDERED: MELATONIN 5 MG TABLET PO PRN (19:37)
[2019-01-24] MEDS: BUDESONIDE 1 MG/2 ML NEBU INHALATION SCH (19:46)
[2019-01-24] MEDS: FORMOTEROL FUMARATE 20 MCG/2 ML NEBU INHALATION SCH (19:46)
[2019-01-24 23:22] VITALS: RESP 18
[2019-01-25] MEDS: methylPREDNISolone SOD SUCCI 125 MG/2 ML VIAL IV SCH ×2 (00:34→05:39)
[2019-01-25 05:35] VITALS: BP 118/59; PULSE 85; TEMP 97.8
[2019-01-25] MEDS: HYDROcodone/APAP 5-325MG 1 EACH TAB PO PRN ×2 (05:38→12:01)
[2019-01-25 08:06] LABS: ALT 19 U/L (9-52); AST 29 U/L (14-36); African American GFR (CKD) >90 (>60 ml/min/1.73 sqM); Albumin 3.6 g/dL (3.5-5.0); Alkaline Phosphatase 72 U/L (38-126); Anion Gap 11 mmol/L; Blood Urea Nitrogen 18 mg/dL (7-17); Calcium 9.4 mg/dL (8.4-10.2); Carbon Dioxide 21 mmol/L (22-30); Chloride 106 mmol/L (98-107); Glucose 259 mg/dL (74-99); Non-African American GFR(CKD) >90 (>60 ml/min/1.73 sqM); Potassium 3.2 mmol/L (3.5-5.1); Sodium 138 mmol/L (137-145); Total Bilirubin 0.5 mg/dL (0.2-1.3)
[2019-01-25 08:33] LABS: Basophils % (A) 0 %; Eosinophils % (A) 0 %; HCT 36.6 % (34.0-46.0); HGB 12.7 gm/dL (11.4-16.0); Lymphocytes # (A) 0.5 k/uL (1.0-4.8); Lymphocytes % (A) 7 %; MCH 33.8 pg (25.0-35.0); MCHC 34.6 g/dL (31.0-37.0); MCV 97.8 fL (80.0-100.0); Monocytes # (A) 0.3 k/uL (0-1.0); Monocytes % (A) 3 %; Neutrophils # (A) 7.1 k/uL (1.3-7.7); Neutrophils % (A) 89 %; Platelet Count 188 k/uL (150-450); RBC 3.74 m/uL (3.80-5.40); RDW 13.1 % (11.5-15.5); WBC 7.9 k/uL (3.8-10.6)
[2019-01-25] MEDS: IPRATROPIUM-ALBUTEROL 3 ML NEB INHALATION SCH ×2 (09:29→12:01)
[2019-01-25] MEDS: BUDESONIDE 1 MG/2 ML NEBU INHALATION SCH (09:29)
[2019-01-25] MEDS: FORMOTEROL FUMARATE 20 MCG/2 ML NEBU INHALATION SCH (09:29)
--- NOTE | 2019-01-25 10:54 | P.DS ---
Providers Date of admission: 01/24/19 15:52 Expected date of discharge: 01/25/19 Attending physician: Anjelica Balbuena MD Consults: 01/24/19 15:42 Consult Physician Routine Consulting Provider: Sly Little Consult Reason/Comments: COPD exacerbation, lung cancer Do you want consulting provider notified?: Yes 01/24/19 15:45 Consult Physician Routine Consulting Provider: Fito Garcia Consult Reason/Comments: Lung cancer Do you want consulting provider notified?: Yes Primary care physician: Stated None Hospital Course: Discharge Diagnosis: Acute exacerbation of COPD Small Cell Lung Cancer Tobacco abuse History of seizure disorder Social stressor- no rides to appointments Hospital Course: Patient is a 63-year-old female with a reassessment diagnosis of small cell lung cancer, COPD, GERD, and osteoarthritis who presented to the emergency department with complaints of shortness of breath. In the emergency department she underwent an extensive evaluation. Her vital signs within normal limits on arrival. Laboratory analysis showed a slightly elevated chloride at 109, carbon dioxide of 19. Her total bilirubin and AST were slightly elevated. She was started on bronchodilators and IV steroids. She was found have an elevated d- dimer and subsequently underwent a CTA of the chest. This showed a right perihilar infiltrative mass extending into the mediastinum and narrowing the right upper lobe bronchi compatible with neoplasm. She also was found have a second right apical mass suspicious for multiple abnormal subcentimeter pulmonary nodules. Patient has been following with Dr. Garcia and Dr. Little. She recently had a biopsy confirming small cell lung cancer. She was recently had a port placed by Dr. Gutierrez. She was supposed to undergo PET scan On 01/24 but came to the hospital instead. She was seen by pulmonary who agreed with continued steroids and bronchodilators. On the morning of 01/25 she had had significant improvement in her breathing felt back to baseline. She was requesting to stay in the hospital have her PET scan completed as she has diff iculty with rides to and from appointments. We expressed to her that this could not be completed during her hospital stay and was most appropriate to be done as an outpatient as had been originally ordered. Patient acknowledges this fact. Case management multiple with the patient and provided resources. She was determined stable for discharge home to continue outpatient evaluation. She will follow-up with Dr. Garcia and Dr. Beltre who has written her Rx in last 60 days. She will also follow-up with Dr. Little in 4 weeks. Patient seen and examined at bedside. States that she is tired but breathing is back to baseline. States that she does not have adequate support at home to make all her appointments. Vital signs reviewed and stable. General: non toxic, no distress, appears older than stated age, cachexic Derm: warm, dry Head: atraumatic, normocephalic, symmetric Eyes: EOMI, no lid lag, anicteric sclera Mouth: no lip lesion, mucus membranes moist Cardiovascular: S1S2 reg, no murmur, positive posterior tibial pulse bilateral, Lungs: CTA bilateral, no rhonchi, no rales , no accessory muscle use Abdominal: soft, nontender to palpation, no guarding, no appreciable organomega ly Ext: no gross muscle atrophy, no edema, no contractures Neuro: CN II-XI grossly intact, no focal neuro deficits Psych: Alert, oriented, appropriate affect A total of 45 minutes of time were spent preparing this complex discharge summary . Patient Condition at Discharge: Stable Plan - Discharge Summary Discharge Rx Participant: Yes New Discharge Prescriptions: New predniSONE 40 mg PO DAILY #8 tab Continue Albuterol Nebulized [Ventolin Nebulized] 2.5 mg INHALATION RT-TID PRN PRN Reason: sob Albuterol Inhaler [Ventolin Hfa Inhaler] 1 - 2 puff INHALATION RT-Q4H PRN PRN Reason: sob Acetaminophen [Tylenol Extra Strength] 500 - 1,000 mg PO Q4H PRN PRN Reason: Pain Tiotropium [place] [Spiriva] 1 cap INHALATION RT-DAILY Hydrocodone/Acetaminophen [[place] 5-325] 1 tab PO Q4-6H PRN 3 Days #18 tab PRN Reason: Pain Discharge Medication List Acetaminophen [Tylenol Extra Strength] 500 - 1,000 mg PO Q4H PRN 12/31/18 [History] Albuterol Inhaler [Ventolin Hfa Inhaler] 1 - 2 puff INHALATION RT-Q4H PRN [History] Albuterol Nebulized [Ventolin Nebulized] 2.5 mg INHALATION RT-TID PRN 12/31/18 [History] Tiotropium [place] [Spiriva] 1 cap INHALATION RT-DAILY 01/16/19 [History] Hydrocodone/Acetaminophen [[place] 5-325] 1 tab PO Q4-6H PRN 3 Days #18 tab 01/20/19 [Rx] predniSONE 40 mg PO DAILY #8 tab 01/25/19 [Rx] Follow up Appointment(s)/Referral(s): Fito Garcia MD [STAFF PHYSICIAN] - 2 Weeks Nnamdi Beltre MD [REFERRING] - 1-2 Days Activity/Diet/Wound Care/Special Instructions: Activity: as tolerated Diet: regular Special Instructions: Reschedule PET scan Call Medicare for Rides to appointment given 211 information
--- NOTE | 2019-01-25 11:08 | P.PN ---
Subjective Progress Note Date: 01/25/19 This is a very pleasant 63-year-old female patient lives on [address] and the patient carries approximately [id number] smoking history. The patient had presented to an outside hospital because of the pain across her chest that was quite nonspecific and was skeletal in nature. The right chest was sore to touch. No hemoptysis. She had also increased dyspnea, cough, chest congestion and wheezing. She was an acute COPD exacerbation. A CAT scan of the chest was done in the hospital that showed a masslike infiltrate abutting the pleura in the right upper lobe in addition to mediastinal lymphadenopathy involving the right hilum and anterior tracheal area with the largest lymph node measuring 2.5 cm. She is a smoker. The patient underwent a bronchoscopy and airway inspection is showed some endobronchial irregularities at the martha between the right upper lobe there was some extrinsic compression and some endobronchial irregularities probably from the underlying right hilar lymph node/mass. On 01/02/2019 Dr. Little performed biopsies included transbronchial needle aspirate and transbronchial biopsies that showed poorly differentiated neoplasm consistent with small cell lung cancer. She is aware of the diagnosis. She was last seen in our office 01/08/2019. She was given referrals for both medical and radiation oncology. MRA of the brain and PET scan were ordered as well. She presented here to the emergency room today after developing increasing shortness of breath cough and congestion. She was also having squeezing sensation in her chest. Chest x-ray revealed chronic changes but no acute pulmonary process. CT angiogram revealed no evidence of pulmonary embolus. There is a right perihilar infiltrative mass extending into the mediastinum and narrowing the right upper lobe bronchi compatible with neoplasm. Pathologic mediastinal adenopathy is also present. There is a second right apical mass as well as multiple additional subcentimeter pulmonary nodules with the largest in the left upper lobe measuring 8 mm. His been afebrile. Maintaining O2 saturations in the high 90s on 2 L/m per nasal cannula. Hemodynamically stable. White count 7.0. Hemoglobin 13.6. Sodium 140. Potassium 4.6. Chloride 109. Bicarb 19. Creatinine 0.56. Blood and negative times one. Calcium 9.2. She's been initiated and DuoNeb inhalations and IV Solu-Medrol. She is seen today in consultation on the oncology unit. Currently awake and alert in no acute distress. On todays evaluation, the patient is being seen for follow-up on 01/25/2019. The patient is a bit upset knowing that she missed her CAT scan of his she is already feeling better. No significant shortness of breath on today's evaluation. Cough and wheezing has subsided. No hemoptysis. No pleurisy. No other complaints otherwise for now. She is currently on room air oxygen. Objective - Vital Signs Vital signs: Vital Signs Temp 97.8 F 01/25/19 05:30 Pulse 85 01/25/19 05:30 Resp 18 01/25/19 05:30 BP 118/59 01/25/19 05:30 Pulse Ox 99 01/25/19 05:30 Intake & Output 01/24/19 01/25/19 01/25/19 18:59 06:59 18:59 Weight 45.359 kg Other: Voiding Method Toilet # Voids 2 - Exam GENERAL EXAM: Alert, pleasant 63-year-old female patient, comfortable in no apparent distress. On 2 L nasal cannula. HEAD: Normocephalic. EYES: Normal reaction of pupils, equal size. NOSE: Clear with pink turbinates. THROAT: No erythema or exudates. NECK: No masses, no JVD. CHEST: No chest wall deformity. LUNGS: Equal air entry with scattered rhonchi, end expiratory wheeze, diminished. CVS: S1 and S2 normal with no audible murmur, regular rhythm. ABDOMEN: No hepatosplenomegaly, normal bowel sounds, no guarding or rigidity. SPINE: No scoliosis or deformity SKIN: No rashes CENTRAL NERVOUS SYSTEM: No focal deficits, tone is normal in all 4 extremities. EXTREMITIES: There is no peripheral edema. No clubbing, no cyanosis. Peripher al pulses are intact. - Labs CBC & Chem 7: 01/25/19 06:18 01/25/19 06:18 Labs: Abnormal Lab Results - Last 24 Hours (Table) 01/24/19 01/24/19 01/24/19 Range/Units 12:49 12:49 12:49 RBC (3.80-5.40) m/uL Lymphocytes # 0.8 L (1.0-4.8) k/uL D-Dimer 1.70 H (<0.60) mg/L FEU Potassium (3.5-5.1) mmol/L Chloride 109 H (98-107) mmol/L Carbon Dioxide 19 L (22-30) mmol/L BUN (7-17) mg/dL Glucose 101 H (74-99) mg/dL Total Bilirubin 1.4 H (0.2-1.3) mg/dL AST 79 H (14-36) U/L Total Protein (6.3-8.2) g/dL 01/25/19 01/25/19 Range/Units 06:18 06:18 RBC 3.74 L (3.80-5.40) m/uL Lymphocytes # 0.5 L (1.0-4.8) k/uL D-Dimer (<0.60) mg/L FEU Potassium 3.2 L (3.5-5.1) mmol/L Chloride (98-107) mmol/L Carbon Dioxide 21 L (22-30) mmol/L BUN 18 H (7-17) mg/dL Glucose 259 H (74-99) mg/dL Total Bilirubin (0.2-1.3) mg/dL AST (14-36) U/L Total Protein 6.0 L (6.3-8.2) g/dL Assessment and Plan Plan: #1 Acute exacerbation of moderate chronic obstructive pulmonary disease. FEV1 value 51% of predicted. #2 Recent diagnosis of small cell lung cancer, bronchoscopy with biopsies performed on 01/02/2018. Medical and radiation oncology referrals were made. MRI of the brain and PET scan are pending. #3 Chronic and ongoing tobacco dependence of 50 years at 1 pack per day. #4 History of marijuana use. #5 History of seizure disorder plan This patient can be discharged home on a prednisone burst taper. May need to have a rescheduling of her PET scan and MRI of the brain regarding her metastatic workup followed up on outpatient basis with oncology and pulmonary services. Maintenance inhalers will be Spiriva. Smoking cessation counseling was done.
[2019-01-25] MEDS ORDERED: predniSONE 20 MG TAB PO SCH (11:15)
== END 2019-01-25 15:40 | disposition home or self-care (01) ==
LOC: EC 12:21 → 3NMEDONC 15:52
PROVIDERS: ADMIT Internal Medicine; ATTEND Internal Medicine
DX: J44.1 Chronic obstructive pulmonary disease with (acute) exacerbation (principal); C34.11 Malignant neoplasm of upper lobe, right bronchus or lung; R59.0 Localized enlarged lymph nodes; I49.3 Ventricular premature depolarization; R09.02 Hypoxemia; R79.89 Other specified abnormal findings of blood chemistry; M19.90 Unspecified osteoarthritis, unspecified site; K21.9 Gastro-esophageal reflux disease without esophagitis; G40.909 Epilepsy, unspecified, not intractable, without status epilepticus; L40.9 Psoriasis, unspecified; F32.9 Major depressive disorder, single episode, unspecified; M54.5 Low back pain; F17.210 Nicotine dependence, cigarettes, uncomplicated; G89.29 Other chronic pain; Z79.899 Other long term (current) drug therapy; Z91.018 Allergy to other foods; Z87.898 Personal history of other specified conditions; Z90.710 Acquired absence of both cervix and uterus; Z82.49 Family history of ischemic heart disease and other diseases of the circulatory system; Z84.89 Family history of other specified conditions
CPT/HCPCS: 96376; 96374; 96361; 99285; 36415; 94640 ×2; 94760; 93005; 85379; 80053 ×2; 83735; 84484; 85025 ×2; 85610; 85730; 71046; 71275; G0378 ×2; J2930 ×2; J7512; Q9967

== ENCOUNTER → 2019-01-30 | Outpatient (CLI) | payer MEDICARE, OTHER ==
--- NOTE | 2019-01-31 03:12 | MR ---
EXAMINATION TYPE: MR brain wo/w con DATE OF EXAM: 01/30/2019 COMPARISON: None HISTORY: lung ca, rt side numbness, 4.5ml gadavist, no prev studies TECHNIQUE: Multiplanar, multisequence images of the brain and brainstem is performed without and with IV contras t, utilizing 4.5 ml mL intravenous Gadavist . FINDINGS: There is some cerebral cortical atrophy. There is no mass effect nor midline shift. There i s no evidence of intracranial hemorrhage. On the contrast images there are numerous discrete foci of pathologic enhancement throughout the brai n parenchyma. These are more concentrated in the cerebellum. The total number of lesions is probably more than 50. Some of these are larger and ring-enhancing. The largest lesion measures 8 mm. There ar e also lesions in the brainstem at the posterior leigh on the right side and left cerebellar peduncle. There is some thinning of the corpus callosum. Sella turcica is intact. IMPRESSION: Numerous nodular intra-axial foci of pathologic enhancement in the brain consistent with metastatic disease. No evidence of cortical infarct. Mild atrophy.
== END ==
LOC: RADMRIMAIN 18:15
PROVIDERS: ATTEND Radiology Radiation Oncology
DX: R94.02 Abnormal brain scan (principal); C34.11 Malignant neoplasm of upper lobe, right bronchus or lung
CPT/HCPCS: 70553; A9585

== ENCOUNTER → 2019-01-31 | Outpatient (CLI) | payer MEDICARE, OTHER ==
--- NOTE | 2019-02-01 22:07 | PE ---
EXAMINATION TYPE: PET CT fusion skull to thigh DATE OF EXAM: 01/31/2019 COMPARISON: CTA chest 01/24/2019 Prior PET/CT: None HISTORY: Lung cancer TECHNIQUE: Following the intravenous administration of 12.6 mCi of F-18 FDG, whole body images are p erformed from the skull base to the midthigh. Images are reviewed on the computer in the coronal, ax ial, and sagittal planes. Reconstructed rotating images are created on independent workstation and r eviewed on the computer. A localization and attenuation correction CT is performed in conjunction w ith the PET scan. DLP: 187.2 mGycm SCAN: Initial Blood glucose: 96 mg/dL Average Mediastinum SUV: 1.41 Average Liver SUV: 1.7 FINDINGS: NECK: Suspicious uptake within the neck is not identified. No suspicious supraclavicular lymphadenop athy is evident. THORAX: There is intense uptake within the soft tissue mass in the superior lateral right apex with a n SUV value of 8.86. Smaller focus of radiotracer accumulation is in the medial right apex correspond ing to the soft tissue abnormality is seen 4.74 compatible with neoplasm. There is a pretracheal lymph node which is with intense uptake measuri ng 4.15 compatible with a metastatic deposit. The right hilar mass with extension into the mediastinu m has intense uptake measuring 7.28 SUV value compatible with neoplasm. A subcarinal lymph node is on measuring 4.56 SUV value. There may be a subtle uptake within the inferior posterior right hilum wit h an SUV value of 2.23 and additional right infrahilar node with an SUV value 2.97, images 95 and 100 respectively. ABDOMEN: There is a focus of radiotracer accumulation within the anterior right lobe liver, image 142 with an SUV value of 3.45 suspicious for metastatic lesion. Additional areas of uptake are within th e upper portion of the liver best visualized image 130 in the superior right dome of the liver with a n SUV value of 3.01, near the gastroesophageal junction in the superior right lobe liver with an SUV value 2.53, and in the epigastric region within the anterior right lobe liver with an SUV value of 2. 35. PELVIS: Suspicious soft tissue uptake within the pelvis is not evident OSSEOUS STRUCTURES: There is a focal radiotracer accumulation within the C4 vertebral level measuring SUV value of 2 suspicious for metastatic lesion. There is a focus of radiotracer accumulation within the right proximal humerus with an SUV value 1.96. Early metastatic lesion should be considered. Ava ge 46. There is intense activity within the proximal left humerus compatible with a metastatic lesion with an SUV value of 3.22 a suspected metastatic lesions in the posterior right scapula with an SUV value 1.28. There is increased uptake within the left scapula. There is intense activity within the r egion of the seventh vertebral body suspicious for metastatic disease within SUV value of 3. Suspecte d activity is also present within T10 there is increased uptake within the L4 vertebral level suspici ous for metastatic disease measuring SUV of 2.45 there is intense activity within the bilateral iliac wings posterior right medial left mid right, 2 lesions at this level. And inferior medial right and anterior inferior left compatible with metastatic lesions. Focus of radiotracer accumulation is at th e edge the exopk-xl-duci within the proximal right femur. This has an SUV value of 6.58. There are ad ditional subtle areas of uptake within the medullary portion of the proximal left femur, image 256 wi thin the proximal right trochanter. Image [address]: Enlarged mediastinal lymph nodes are evident. The hepatic lesions are so on the nonc ontrast images. Osseous metastasis are readily apparent on the PET scan. COMPARISON: Lung findings correlate with the recent CTA chest IMPRESSION: 1. Abnormal uptake within the superior lateral and superior medial right apex of the lung and right h ilum compatible with neoplasm 2. Multiple right hilar, pretracheal, and subcarinal lymph nodes with uptake suspicious for metastati c disease. 3. At least 4 hepatic metastatic deposits with elevated uptake. 4 multiple metastatic lesions includi ng proximal bilateral humeri, proximal bilateral femurs within the knyvo-ca-wmef, and extensive large r metastases within the iliac wings bilaterally. Multilevel metastatic lesions within vertebral megan s include the cervical thoracic and lumbar spine.
== END | disposition home or self-care (01) ==
LOC: RADPETMAIN 13:27
PROVIDERS: ATTEND Radiology Radiation Oncology
DX: C34.11 Malignant neoplasm of upper lobe, right bronchus or lung (principal); C78.7 Secondary malignant neoplasm of liver and intrahepatic bile duct; C79.51 Secondary malignant neoplasm of bone
CPT/HCPCS: 78815; A9552

== ENCOUNTER 2019-02-14 09:40 | Inpatient (IN) | payer MEDICARE, OTHER ==
[2019-02-14] MEDS ORDERED: methylPREDNISolone SOD SUCCI 125 MG/2 ML VIAL IV STA (10:05)
[2019-02-14] MEDS ORDERED: SODIUM CHLORIDE 0.9% 1,000 ML IV STA (10:05)
[2019-02-14] MEDS ORDERED: IPRATROPIUM-ALBUTEROL 3 ML NEB INHALATION STA ×2 (10:05→12:20)
[2019-02-14 10:38] LABS: Basophils # (A) 0.1 k/uL (0-0.2); Basophils % (A) 1 %; Eosinophils # (A) 0.1 k/uL (0-0.7); Eosinophils % (A) 1 %; HCT 41.3 % (34.0-46.0); HGB 13.7 gm/dL (11.4-16.0); Lymphocytes # (A) 0.7 k/uL (1.0-4.8); Lymphocytes % (A) 8 %; MCHC 33.1 g/dL (31.0-37.0); MCV 96.6 fL (80.0-100.0); Monocytes # (A) 0.7 k/uL (0-1.0); Monocytes % (A) 8 %; Neutrophils # (A) 6.6 k/uL (1.3-7.7); Neutrophils % (A) 81 %; Platelet Count 214 k/uL (150-450); RBC 4.28 m/uL (3.80-5.40); RDW 13.7 % (11.5-15.5); WBC 8.2 k/uL (3.8-10.6)
[2019-02-14 10:50] LABS: ALT 32 U/L (9-52); AST 78 U/L (14-36); African American GFR (CKD) >90 (>60 ml/min/1.73 sqM); Albumin 3.9 g/dL (3.5-5.0); Alkaline Phosphatase 85 U/L (38-126); Anion Gap 12 mmol/L; Blood Urea Nitrogen 19 mg/dL (7-17); Calcium 9.7 mg/dL (8.4-10.2); Carbon Dioxide 21 mmol/L (22-30); Chloride 104 mmol/L (98-107); Glucose 125 mg/dL (74-99); Potassium 4.5 mmol/L (3.5-5.1); Sodium 137 mmol/L (137-145); Total Bilirubin 0.5 mg/dL (0.2-1.3); Total Protein 6.5 g/dL (6.3-8.2)
[2019-02-14 11:01] LABS: Partial Thromboplastin Time 22.3 sec (22.0-30.0); Prothrombin Time 10.5 sec (9.0-12.0)
--- NOTE | 2019-02-14 11:31 | XR ---
EXAMINATION TYPE: XR chest 2V DATE OF EXAM: 02/14/2019 COMPARISON: NONE TECHNIQUE: PA and lateral views submitted. HISTORY: Difficulty breathing FINDINGS: No sizable pneumothorax or pleural effusion. Atherosclerotic change aorta. Heart is enlarged and ther e is hypertrophic and degenerative change of the spine. Large area of consolidation or mass in the ri ght upper lobe markedly progressed from the prior exam. Mediport catheter seen the tip overlying the SVC. IMPRESSION: 1. Interval marked increase in consolidation involving the right upper lobe. Underlying hilar or uppe r lobe mass previously reported by CT scan. This may represent postobstructive atelectasis, postobstr uctive pneumonia or progression of disease.
[2019-02-14] MEDS ORDERED: ONDANSETRON 4 MG/2 ML VIAL IVP STA (12:15)
--- NOTE | 2019-02-14 14:38 | ED ---
SOB HPI - General Chief Complaint: Shortness of Breath Stated Complaint: PHOEBE Time Seen by Provider: 02/14/19 10:05 Source: patient, RN notes reviewed Mode of arrival: ambulatory Limitations: no limitations - History of Present Illness Initial Comments: This is a 63-year-old female with a history of small cell lung cancer COPD who states she had the onset last evening of shortness of breath and got progressively worse today. She has exertional dyspnea and nonproductive cough no fevers chills or sweats. MD Complaint: shortness of breath, cough - Related Data Home Medications Medication Instructions Recorded Confirmed Albuterol Inhaler [Ventolin Hfa 2 puff INHALATION RT-Q6H PRN 12/31/18 02/14/19 Inhaler] Albuterol Nebulized [Ventolin 2.5 mg INHALATION RT-TID PRN 12/31/18 02/14/19 Nebulized] Tiotropium [place] [Spiriva] 1 cap INHALATION RT-DAILY 01/16/19 02/14/19 Dexamethasone [Hexadrol] 2 mg PO BID 02/14/19 02/14/19 Hydrocodone/Acetaminophen [[place] 1 tab PO Q6H PRN 02/14/19 02/14/19 10-325] Melatonin 3 mg PO HS PRN 02/14/19 02/14/19 Vitamin C/Biotin [Hair, Skin and 1 tab PO DAILY 02/14/19 02/14/19 Nails] Allergies Allergy/AdvReac Type Severity Reaction Status Date / Time coconut Allergy gets dizzy Verified 02/14/19 10:42 and had a seizure mushroom Allergy SOB, Verified 02/14/19 10:42 tongue swelling Review of Systems ROS Statement: Those systems with pertinent positive or pertinent negative responses have been documented in the HPI. ROS Other: All systems not noted in ROS Statement are negative. Past Medical History Past Medical History: Asthma, Cancer, COPD, GERD/Reflux, Osteoarthritis (OA), Skin Disorder Additional Past Medical History / Comment(s): "mass in rt lung", new "Small Cell Lung CA" diagnosed. epileptic (not currently on any rx for), last seizure 12/2018, occ palpitations mostly at noc, Psoriasis patches on legs,elbows and sca lp, "top of rt ear bit off age 15" History of Any Multi-Drug Resistant Organisms: None Reported Past Surgical History: Breast Surgery, Ear Surgery, Hysterectomy, Tonsillectomy Additional Past Surgical History / Comment(s): ryan breast lumpectomy ("d/t crystallization"), oral surgery, surgery on rt ear after injury. Bronchoscopy 01/02/19. mediport right side chest Past Anesthesia/Blood Transfusion Reactions: Family History of Problems w/ Anesthesia Additional Past Anesthesia/Blood Transfusion Reaction / Comment(s): "dad on operative table-he had sepsis from blood clot in his leg" Past Psychological History: Anxiety, Depression Smoking Status: Current every day smoker Past Alcohol Use History: Daily Past Drug Use History: None Reported - Past Family History Father Family Medical History: Deep Vein Thrombosis (DVT) Additional Family Medical History / Comment(s): "Gangrene in leg, on the table," possible DVT General Exam - General Exam Comments Initial Comments: Is a well-developed sec appearing female who is awake alert oriented 3 demonstrating some respiratory distress Limitations: no limitations General appearance: alert, anxious, in distress Head exam: Present: atraumatic, normocephalic, normal inspection Eye exam: Present: normal appearance, PERRL, EOMI. Absent: scleral icterus, conjunctival injection, periorbital swelling ENT exam: Present: mucous membranes dry Neck exam: Present: normal inspection. Absent: tenderness, meningismus, lympha denopathy Respiratory exam: Present: respiratory distress, wheezes, accessory muscle use, decreased breath sounds. Absent: rales, rhonchi, stridor Cardiovascular Exam: Present: normal rhythm, tachycardia. Absent: systolic murmur, diastolic murmur, rubs, gallop, clicks GI/Abdominal exam: Present: soft, normal bowel sounds. Absent: distended, tenderness, guarding, rebound, rigid Extremities exam: Present: normal inspection, full ROM, normal capillary refill. Absent: tenderness, pedal edema, joint swelling, calf tenderness Back exam: Present: normal inspection Neurological exam: Present: alert, oriented X3, CN II-XII intact Psychiatric exam: Present: normal affect, anxious Skin exam: Present: warm, dry, intact, normal color. Absent: rash Course Vital Signs 02/14/19 02/14/19 02/14/19 09:43 10:25 10:35 Temperature 98.2 F Pulse Rate 119 H 106 H 106 H Respiratory 24 Rate Blood Pressure 104/61 O2 Sat by Pulse 91 L Oximetry 02/14/19 02/14/19 02/14/19 11:25 12:17 14:27 Temperature Pulse Rate 103 H 116 H 109 H Respiratory 18 18 Rate Blood Pressure 120/83 119/76 O2 Sat by Pulse 85 L 95 Oximetry 02/14/19 14:38 Temperature Pulse Rate 111 H Respiratory Rate Blood Pressure O2 Sat by Pulse Oximetry - Reevaluation(s) Reevaluation #1: 02/14/19 14:40 Reevaluate patient on several occasions still dyspneic with diffuse wheezing usually gets dyspneic with exertion or talking. Medical Decision Making - Medical Decision Making I did discuss the findings with the patient and with Dr. Griffin as well as with Dr. Lennon who did come the emergency department see the patient she will be admitted or inpatient treatment - Lab Data Result diagrams: 02/14/19 10:00 02/14/19 10:00 Lab Results 02/14/19 02/14/19 02/14/19 Range/Units 10:00 10:00 10:00 WBC 8.2 (3.8-10.6) k/uL RBC 4.28 (3.80-5.40) m/uL Hgb 13.7 (11.4-16.0) gm/dL Hct 41.3 (34.0-46.0) % MCV 96.6 (80.0-100.0) fL MCH 32.0 (25.0-35.0) pg MCHC 33.1 (31.0-37.0) g/dL RDW 13.7 (11.5-15.5) % Plt Count 214 (150-450) k/uL Neutrophils % 81 % Lymphocytes % 8 % Monocytes % 8 % Eosinophils % 1 % Basophils % 1 % Neutrophils # 6.6 (1.3-7.7) k/uL Lymphocytes # 0.7 L (1.0-4.8) k/uL Monocytes # 0.7 (0-1.0) k/uL Eosinophils # 0.1 (0-0.7) k/uL Basophils # 0.1 (0-0.2) k/uL PT (9.0-12.0) sec INR (<1.2) APTT (22.0-30.0) sec Sodium 137 (137-145) mmol/L Potassium 4.5 (3.5-5.1) mmol/L Chloride 104 (98-107) mmol/L Carbon Dioxide 21 L (22-30) mmol/L Anion Gap 12 mmol/L BUN 19 H (7-17) mg/dL Creatinine 0.76 (0.52-1.04) mg/dL Est GFR (CKD-EPI)AfAm >90 (>60 ml/min/1.73 sqM) Est GFR (CKD-EPI)NonAf 83 (>60 ml/min/1.73 sqM) Glucose 125 H (74-99) mg/dL Calcium 9.7 (8.4-10.2) mg/dL Magnesium 2.0 (1.6-2.3) mg/dL Total Bilirubin 0.5 (0.2-1.3) mg/dL AST 78 H (14-36) U/L ALT 32 (9-52) U/L Alkaline Phosphatase 85 (38-126) U/L Troponin I (0.000-0.034) ng/mL NT-Pro-B Natriuret Pep 142 pg/mL Total Protein 6.5 (6.3-8.2) g/dL Albumin 3.9 (3.5-5.0) g/dL 02/14/19 02/14/19 Range/Units 10:00 10:00 WBC (3.8-10.6) k/uL RBC (3.80-5.40) m/uL Hgb (11.4-16.0) gm/dL Hct (34.0-46.0) % MCV (80.0-100.0) fL MCH (25.0-35.0) pg MCHC (31.0-37.0) g/dL RDW (11.5-15.5) % Plt Count (150-450) k/uL Neutrophils % % Lymphocytes % % Monocytes % % Eosinophils % % Basophils % % Neutrophils # (1.3-7.7) k/uL Lymphocytes # (1.0-4.8) k/uL Monocytes # (0-1.0) k/uL Eosinophils # (0-0.7) k/uL Basophils # (0-0.2) k/uL PT 10.5 (9.0-12.0) sec INR 1.0 (<1.2) APTT 22.3 (22.0-30.0) sec Sodium (137-145) mmol/L Potassium (3.5-5.1) mmol/L Chloride (98-107) mmol/L Carbon Dioxide (22-30) mmol/L Anion Gap mmol/L BUN (7-17) mg/dL Creatinine (0.52-1.04) mg/dL Est GFR (CKD-EPI)AfAm (>60 ml/min/1.73 sqM) Est GFR (CKD-EPI)NonAf (>60 ml/min/1.73 sqM) Glucose (74-99) mg/dL Calcium (8.4-10.2) mg/dL Magnesium (1.6-2.3) mg/dL Total Bilirubin (0.2-1.3) mg/dL AST (14-36) U/L ALT (9-52) U/L Alkaline Phosphatase (38-126) U/L Troponin I <0.012 (0.000-0.034) ng/mL NT-Pro-B Natriuret Pep pg/mL Total Protein (6.3-8.2) g/dL Albumin (3.5-5.0) g/dL - EKG Data -: EKG Interpreted by Me EKG Comments: EKG shows sinus tachycardia with occasional PVCs rate was 106. Interval 116 QRS duration 88 daily since QTC 340/451 - Radiology Data Radiology results: report reviewed (Imaging reviewed no definite acute changes.), image reviewed Critical Care Time Critical Care Time: Yes Critical Care Time: 31 minutes. Now is includes initial presentation with history physical labs x- rays discussed with paramedics multiple reevaluation the patient response to therapy discuss with the admitting physician and consult admission orders and documentation of the above Disposition Clinical Impression: COPD exacerbation, Acute respiratory distress syndrome in adult, Small cell lung cancer, Dehydration Disposition: ADMITTED IP TO THIS HOSP Condition: Fair Referrals: Sly Little MD [Primary Care Provider] - 1-2 days
[2019-02-14] MEDS ORDERED: HYDROcodone/APAP 10-325MG 1 EACH TAB PO ONE (15:57)
[2019-02-14] MEDS: IPRATROPIUM-ALBUTEROL 3 ML NEB INHALATION SCH ×2 (16:09→19:02)
[2019-02-14] MEDS: SODIUM CHLORIDE 0.9% 1,000 ML IV SCH (17:53)
[2019-02-14] MEDS: methylPREDNISolone SOD SUCCI 125 MG/2 ML VIAL IV SCH ×2 (17:59→23:09)
[2019-02-14] MEDS: DEXAMETHASONE 2 MG TAB PO SCH (19:37)
[2019-02-14 19:46] LABS: Glucose,Whole Blood 231 mg/dL (75-99)
[2019-02-14] MEDS: INSULIN ASPART (NovoLOG) 100 UNIT/ML VIAL SQ SCH (20:44)
[2019-02-14] MEDS ORDERED: IPRATROPIUM-ALBUTEROL 3 ML NEB INHALATION PRN (21:18)
--- NOTE | 2019-02-14 22:53 | P.HPIM ---
History of Present Illness H&P Date: 02/14/19 Chief Complaint: Difficulty in breathing Patient is a 63-year-old female with a known history of small cell lung cancer currently undergoing chemotherapy since 02/07/2019, COPD, GERD, osteoarthritis and anxiety/depression as well as ongoing nicotine addiction came to ER with complaints of difficulty breathing since last night. Patient had radiation therapy yesterday afternoon. Patient has been using inhalers at home but felt very exhausted and tired. Presented to ER with worsening shortness of breath. Patient does have cough without much sputum production. Denied any fever or chills. Patient does have a history of recently diagnosed small cell lung cancer with m etastases to liver and cervical spine. EKG showed sinus tachycardia with premature ventricular contractions Chest x-ray showed interval marked increase in consolidation involving right upper lobe. Underlying hiatal upper lobe mass previously reported by computed tomography scan.. This may represent postobstructive pneumonia or progression of disease. Laboratory data reviewed. Review of Systems Constitutional: Patient denies any fever or chills . Patient does have generalized weakness, weight loss and fatigue.. Abdomen: Patient denied nausea vomiting and diarrhea and abdominal pain. Cardiovascular: Patient denies any chest pain or short of breath no palpitations. Respiratory: Cough with whitish sputum production and shortness of breath Neurologic: Patient denied any numbness or tingling headache. Musculoskeletal: Patient denies any complaints of joint swelling or deformity. Skin: Negative Psychiatric: Negative Endocrine: No heat or cold intolerance. No recent weight gain. Genitourinary: No dysuria or hematuria. All other 14 point ROS negative except the above Past Medical History Past Medical History: Asthma, Cancer, COPD, GERD/Reflux, Osteoarthritis (OA), Skin Disorder Additional Past Medical History / Comment(s): "mass in rt lung", new "Small Cell Lung CA" diagnosed. epileptic (not currently on any rx for), last seizure 12/2018, occ palpitations mostly at noc, Psoriasis patches on legs,elbows and scalp, "top of rt ear bit off age 15" History of Any Multi-Drug Resistant Organisms: None Reported Past Surgical History: Breast Surgery, Ear Surgery, Hysterectomy, Tonsillectomy Additional Past Surgical History / Comment(s): ryan breast lumpectomy ("d/t crystallization"), oral surgery, surgery on rt ear after injury. Bronchoscopy 01/02/19. mediport right side chest Past Anesthesia/Blood Transfusion Reactions: Family History of Problems w/ Anest hesia Additional Past Anesthesia/Blood Transfusion Reaction / Comment(s): "dad on operative table-he had sepsis from blood clot in his leg" Past Psychological History: Anxiety, Depression Smoking Status: Current every day smoker Past Alcohol Use History: Daily Additional Past Alcohol Use History / Comment(s): Smoking down to 2 cigarettes daily, has smoked since age 13, 1 ppd Past Drug Use History: None Reported Additional Drug Use History / Comment(s): occ use - Past Family History Father Family Medical History: Deep Vein Thrombosis (DVT) Additional Family Medical History / Comment(s): "Gangrene in leg, on the table," possible DVT Medications and Allergies Home Medications Medication Instructions Recorded Confirmed Type Albuterol Inhaler [Ventolin Hfa 2 puff INHALATION RT-Q6H PRN 12/31/18 02/14/19 History Inhaler] Albuterol Nebulized [Ventolin 2.5 mg INHALATION RT-TID PRN 12/31/18 02/14/19 History Nebulized] Tiotropium [place] [Spiriva] 1 cap INHALATION RT-DAILY 01/16/19 02/14/19 History Dexamethasone [Hexadrol] 2 mg PO BID 02/14/19 02/14/19 History Hydrocodone/Acetaminophen [[place] 1 tab PO Q6H PRN 02/14/19 02/14/19 History 10-325] Melatonin 3 mg PO HS PRN 02/14/19 02/14/19 History Vitamin C/Biotin [Hair, Skin and 1 tab PO DAILY 02/14/19 02/14/19 History Nails] Allergies Allergy/AdvReac Type Severity Reaction Status Date / Time coconut Allergy gets dizzy Verified 02/14/19 10:42 and had a seizure mushroom Allergy SOB, Verified 02/14/19 10:42 tongue swelling Physical Exam Vitals: Vital Signs Temp Pulse Pulse Resp BP BP Pulse Ox 02/14/19 20:59 98.6 F 105 H 16 125/57 97 02/14/19 19:14 104 H 02/14/19 19:03 104 H 02/14/19 17:35 98 F 110 H 17 156/80 98 02/14/19 16:22 98.2 F 115 H 18 112/80 93 L 02/14/19 15:58 115 H 18 112/80 93 L 02/14/19 14:38 111 H 02/14/19 14:27 109 H 02/14/19 12:17 116 H 18 119/76 95 02/14/19 11:25 103 H 18 120/83 85 L 02/14/19 10:35 106 H 02/14/19 10:25 106 H 02/14/19 09:43 98.2 F 119 H 24 104/61 91 L Intake and Output 02/14/19 02/14/19 02/14/19 06:59 14:59 22:59 Other: Voiding Method Toilet Weight 46.266 kg PHYSICAL EXAMINATION: Patient is lying in the bed comfortably, no acute distress, awake alert and oriented. cachectic. HEENT: Normocephalic. Neck is supple. Pupils reactive. Nostrils clear. Oral cavity is moist. Ears reveal no drainage. Neck reveals no JVD, carotid bruits, or thyromegaly. CHEST EXAMINATION: Trachea is central. Symmetrical expansion. Bilateral diffuse rhonchi and wheezing.. CARDIAC: Normal S1, S2 with no gallops. No murmurs ABDOMEN: Soft. Bowel sounds normal. No organomegaly. No abdominal bruits. Extremities: reveal no edema. No clubbing or cyanosis Neurologically awake, alert, oriented x3 with well-coordinated movements. No focal deficits noted Skin: No rash or skin lesions. Psychiatric: Coperative. Nonsuicidal Musculoskeletal: No joint swelling or deformity. Normal range of motion. Results CBC & Chem 7: 02/14/19 10:00 02/14/19 10:00 Labs: Abnormal Lab Results - Last 24 Hours (Table) 02/14/19 02/14/19 02/14/19 Range/Units 10:00 10:00 19:45 Lymphocytes # 0.7 L (1.0-4.8) k/uL Carbon Dioxide 21 L (22-30) mmol/L BUN 19 H (7-17) mg/dL Glucose 125 H (74-99) mg/dL POC Glucose (mg/dL) 231 H (75-99) mg/dL AST 78 H (14-36) U/L Thrombosis Risk Factor Assmnt - DVT/VTE Prophylaxis DVT/VTE Prophylaxis: Pharmacologic Prophylaxis ordered - Choose All That Apply Each Factor Represents 1 point: Abnormal pulmonary function (COPD), Medical pt on bed rest, Serious lung disease incl. pneumonia (< 1month) Each Risk Factor Represents 2 Points: Age 61-74 years, Malignancy Thrombosis Risk Factor Assessment Total Risk Factor Score: 7 Thrombosis Risk Factor Assessment Level: High Risk Assessment and Plan Assessment: Difficult intubation secondary to acute COPD exacerbation Small cell lung cancer. Currently undergoing radiation since February 07 GERD Osteoarthritis Ongoing nicotine addiction Anxiety/depression DVT prophylaxis with heparin subcu Plan: Patient will be continued on IV steroids, DuoNeb's and oxygen therapy as needed. Patient is currently not on home oxygen. Continue the pain medications and follow up closely. Pulmonary will be consulted and further recommendations based on the clinical course. Smoking cessation has been counseled. Prognosis is Guarded at this time. Time with Patient: Greater than 30
[2019-02-14] MEDS: HEPARIN SODIUM,PORCINE 5,000 UNIT/ML 1 ML VIAL SQ SCH (23:09)
[2019-02-15] MEDS: HYDROcodone/APAP 10-325MG 1 EACH TAB PO PRN ×4 (01:08→21:10)
[2019-02-15] MEDS: MELATONIN 3 MG TABLET PO PRN ×2 (02:39→21:10)
[2019-02-15] MEDS: SODIUM CHLORIDE 0.9% 1,000 ML IV SCH ×3 (04:32→21:09)
[2019-02-15] MEDS: methylPREDNISolone SOD SUCCI 125 MG/2 ML VIAL IV SCH ×4 (04:58→23:59)
[2019-02-15 06:49] LABS: Glucose,Whole Blood 136 mg/dL (75-99)
[2019-02-15] MEDS: IPRATROPIUM-ALBUTEROL 3 ML NEB INHALATION SCH ×4 (07:38→20:17)
[2019-02-15] MEDS ORDERED: NON FORMULARY DRUG (Tiotropium Bromide [Spiriva] 1 CAP) INHALATION SCH (08:00)
[2019-02-15] MEDS: INSULIN ASPART (NovoLOG) 100 UNIT/ML VIAL SQ SCH ×5 (08:46→19:50)
[2019-02-15] MEDS: HEPARIN SODIUM,PORCINE 5,000 UNIT/ML 1 ML VIAL SQ SCH ×3 (08:47→23:59)
[2019-02-15] MEDS: DEXAMETHASONE 2 MG TAB PO SCH ×2 (08:52→21:10)
[2019-02-15] MEDS ORDERED: NON FORMULARY DRUG (Vitamin C/Biotin [Hair, Skin And Nails] 1 TAB) PO SCH (09:00)
[2019-02-15 10:57] LABS: Glucose,Whole Blood 184 mg/dL (75-99)
--- NOTE | 2019-02-15 14:00 | P.CNPUL ---
History of Present Illness Consult date: 02/15/19 Reason for consult: dyspnea History of present illness: 63-year-old female patient with known history of COPD who was recently diagnosed having small cell lung cancer which is currently metastatic. The patient had a MRI of the brain that showed numerous foci of pathologic enhancement consistent with PROPERTY APPRAISER metastases. A PET scan showed abnormal uptake in the superior lateral and superior medial right apex of the lung and the right hilum compatible with neoplasm. There were multiple right hilar and pretracheal and subcarinal lymph nodes suspicious for metastases. There were at least for hepatic metastases and multilevel metastatic lesions involving the vertebral body in the cervical and the thoracic and the lumbar spine. The patient was supposed to start radiation yesterday when she came in she was found to be short of breath and she was sent to the emergency department where she was admitted for an acute COPD exacerbation pH claims that she quit smoking approximately 3 days ago. She has been maintained on Spiriva on outpatient basis in addition to albuterol nebulizer and albuterol solution on a when necessary basis. No chest pain. No hemoptysis. No pleurisy. The chest x-ray showed increase in the right upper lobe consolidation. There was also an underlying upper lobe mass. Based on my review of the chest x-ray, there is volume of the right upper lobe is very much likely that the patient had a right upper lobe collapse with possible postobstructive pneumonia. She is currently on DuoNeb nebulized treatments arou nd the clock. He is also on IV Solu Medrol. She is feeling slightly better. Review of Systems Patient reports shortness of breath when walking but reports no chest pain, no arm pain on exertion, no shortness of breath when lying down, no palpitations, and no known heart murmur. She reports cough and shortness of breath but reports no wheezing, no coughing up blood, and no sleep apnea. She reports no fever, no night sweats, no significant weight gain, no significant weight loss, and no exercise intolerance. She reports no dry eyes, no vision change, and no irritat ion. She reports no difficulty hearing and no ear pain. She reports no frequent nosebleeds, no nose problems, and no sinus problems. She reports no sore throat, no bleeding gums, no snoring, no dry mouth, no mouth ulcers, no oral abnormalities, and no teeth problems. She reports no abdominal pain, no nausea, no vomiting, no constipation, normal appetite, no diarrhea, not vomiting blood, no dyspepsia, and no GERD. She reports no incontinence, no difficulty urinating, no hematuria, and no increased frequency. She reports no muscle aches, no muscle weakness, no arthralgias/joint pain, no back pain, and no swelling in the extremities. She reports no abnormal mole, no jaundice, no rashes, and no laceration. She reports no loss of consciousness, no weakness, no numbness, no seizures, no dizziness, no migraines, no headaches, and no tremor. She reports no depression, no sleep disturbances, feeling safe in a relationship, no alcohol abuse, no anxiety, no hallucinations, and no suicidal thoughts. She reports no fatigue. She reports no swollen glands, no bruising, and no excessive bleeding. She reports no runny nose, no sinus pressure, no itching, no hives, and no frequent sneezing. Past Medical History Past Medical History: Asthma, Cancer, COPD, GERD/Reflux, Osteoarthritis (OA), Skin Disorder Additional Past Medical History / Comment(s): Metastatic small cell lung cancer, psoriasis, COPD with a baseline FEV1 of 51% of predicted, chronic smoker, chronic marijuana user, history of seizures disorder History of Any Multi-Drug Resistant Organisms: None Reported Past Surgical History: Breast Surgery, Ear Surgery, Hysterectomy, Tonsillectomy Additional Past Surgical History / Comment(s): ryan breast lumpectomy ("d/t crystallization"), oral surgery, surgery on rt ear after injury. Bronchoscopy 01/02/19. mediport right side chest Past Anesthesia/Blood Transfusion Reactions: Family History of Problems w/ Anesthesia Additional Past Anesthesia/Blood Transfusion Reaction / Comment(s): "dad on operative table-he had sepsis from blood clot in his leg" Past Psychological History: Anxiety, Depression Smoking Status: Current every day smoker Past Alcohol Use History: Daily Additional Past Alcohol Use History / Comment(s): Smoking down to 2 cigarettes daily, has smoked since age 13, 1 ppd Past Drug Use History: None Reported Additional Drug Use History / Comment(s): occ use - Past Family History Father Family Medical History: Deep Vein Thrombosis (DVT) Additional Family Medical History / Comment(s): "Gangrene in leg, on the table," possible DVT Medications and Allergies Home Medications Medication Instructions Recorded Confirmed Type Albuterol Inhaler [Ventolin Hfa 2 puff INHALATION RT-Q6H PRN 12/31/18 02/14/19 History Inhaler] Albuterol Nebulized [Ventolin 2.5 mg INHALATION RT-TID PRN 12/31/18 02/14/19 History Nebulized] Tiotropium [place] [Spiriva] 1 cap INHALATION RT-DAILY 01/16/19 02/14/19 History Dexamethasone [Hexadrol] 2 mg PO BID 02/14/19 02/14/19 History Hydrocodone/Acetaminophen [[place] 1 tab PO Q6H PRN 02/14/19 02/14/19 History 10-325] Melatonin 3 mg PO HS PRN 02/14/19 02/14/19 History Vitamin C/Biotin [Hair, Skin and 1 tab PO DAILY 02/14/19 02/14/19 History Nails] Allergies Allergy/AdvReac Type Severity Reaction Status Date / Time coconut Allergy gets dizzy Verified 02/14/19 10:42 and had a seizure mushroom Allergy SOB, Verified 02/14/19 10:42 tongue swelling Physical Exam Vitals: Vital Signs Temp Pulse Pulse Resp BP BP Pulse Ox 02/15/19 11:19 98.3 F 116 H 22 147/86 94 L 02/15/19 11:13 115 H 02/15/19 11:00 110 H 02/15/19 08:40 76 16 02/15/19 07:49 102 H 02/15/19 07:38 104 H 98 02/15/19 05:18 97.5 F L 76 16 131/65 96 02/15/19 01:26 104 H 02/15/19 01:19 100 02/14/19 20:59 98.6 F 105 H 16 125/57 97 02/14/19 19:14 104 H 02/14/19 19:03 104 H 02/14/19 17:35 98 F 110 H 17 156/80 98 02/14/19 16:22 98.2 F 115 H 18 112/80 93 L 02/14/19 15:58 115 H 18 112/80 93 L 02/14/19 14:38 111 H 02/14/19 14:27 109 H Intake and Output 02/14/19 02/15/19 02/15/19 22:59 06:59 14:59 Intake Total 360 Balance 360 Intake: Oral 360 Other: Voiding Method Toilet Toilet # Voids 2 1 3 GENERAL EXAM: Alert, pleasant 63-year-old female patient, comfortable in no apparent distress. On 2 L nasal cannula. HEAD: Normocephalic. EYES: Normal reaction of pupils, equal size. NOSE: Clear with pink turbinates. THROAT: No erythema or exudates. NECK: No masses, no JVD. CHEST: No chest wall deformity. LUNGS: Equal air entry with scattered rhonchi, end expiratory wheeze, diminished. CVS: S1 and S2 normal with no audible murmur, regular rhythm. ABDOMEN: No hepatosplenomegaly, normal bowel sounds, no guarding or rigidity. SPINE: No scoliosis or deformity SKIN: No rashes CENTRAL NERVOUS SYSTEM: No focal deficits, tone is normal in all 4 extremities. EXTREMITIES: There is no peripheral edema. No clubbing, no cyanosis. Peripheral pulses are intact. Results - Laboratory Findings CBC and BMP: 02/14/19 10:00 02/14/19 10:00 PT/INR, D-dimer PT 10.5 sec (9.0-12.0) 02/14/19 10:00 INR 1.0 (<1.2) 02/14/19 10:00 Abnormal lab findings: Abnormal Labs 02/14/19 02/14/19 02/14/19 10:00 10:00 19:45 Lymphocytes # 0.7 L Carbon Dioxide 21 L BUN 19 H Glucose 125 H POC Glucose (mg/dL) 231 H AST 78 H 02/15/19 02/15/19 06:47 10:56 Lymphocytes # Carbon Dioxide BUN Glucose POC Glucose (mg/dL) 136 H 184 H AST - Diagnostic Findings Chest x-ray: image reviewed Assessment and Plan Plan: 1 right upper lobe atelectasis with possible postobstructive pneumonia. Right upper lobe atelectasis most likely secondary to right hilar mass causing mass effect on the right upper lobe. 2 metastatic small cell lung cancer with PROPERTY APPRAISER metastases in addition to metastatic involvement of the skeletal system 3 severe COPD with an FEV1 of 51% of predicted at baseline 4 chronic smoker 5 history of marijuana use 6 history of seizure disorder Plan Continue bronchodilators. Continue steroids. Add Augmentin 875 mg by mouth twice a day for postobstructive pneumonia. Proceed with radiation therapy to the brain. We'll collaborate with oncology and radiation therapy regarding the care of her small cell lung cancer. Prognosis poor based on the above-mentioned comorbidities. The patient will need heparin subcu for deep prophylaxis. We'll follow.
[2019-02-15] MEDS: AMOXIC-POT CLAV 875-125MG 1 EACH TAB PO SCH ×2 (15:23→21:10)
[2019-02-15 15:51] VITALS: BMI 17.0
[2019-02-15 16:54] LABS: Glucose,Whole Blood 152 mg/dL (75-99)
[2019-02-15 19:36] LABS: Glucose,Whole Blood 114 mg/dL (75-99)
--- NOTE | 2019-02-15 23:15 | P.PN ---
Subjective Progress Note Date: 02/15/19 Principal diagnosis: Acute COPD exacerbation Post obstructive pneumonia Patient is a 63-year-old female with a known history of small cell lung cancer currently undergoing chemotherapy since 02/07/2019, COPD, GERD, osteoarthritis and anxiety/depression as well as ongoing nicotine addiction came to ER with complaints of difficulty breathing since last night. Patient had radiation therapy yesterday afternoon. Patient has been using inhalers at home but felt very exhausted and tired. Presented to ER with worsening shortness of breath. Patient does have cough without much sputum production. Denied any fever or chills. Patient does have a history of recently diagnosed small cell lung cancer with metastases to liver and cervical spine. EKG showed sinus tachycardia with premature ventricular contractions Chest x-ray showed interval marked increase in consolidation involving right upper lobe. Underlying hiatal upper lobe mass previously reported by computed tomography scan.. This may represent postobstructive pneumonia or progression of disease. Laboratory data reviewed. 02/15/2019 Patient is still complaining of difficulty breathing and wheezing on examinati on. Denied any complaints of chest pain. Patient has been afebrile. Started on antibiotics for postobstructive pneumonia. Continue on oxygen therapy. No nausea vomiting or abdominal pain. No diarrhea or dysuria. Tolerating oral diet. Current medications reviewed. Objective - Vital Signs Vital signs: Vital Signs Temp 98.3 F 02/15/19 20:50 Pulse 111 H 02/15/19 20:50 Resp 16 02/15/19 20:50 BP 148/82 02/15/19 20:50 Pulse Ox 96 02/15/19 20:50 Intake & Output 02/15/19 02/15/19 02/16/19 06:59 18:59 06:59 Intake Total 360 1000 Balance 360 1000 Weight 47.899 kg Intake: Intake, IV Titration 400 Amount Sodium Chloride 0.9% 1, 400 000 ml @ 100 mls/hr IV . Q10H RAMÍREZ Rx#:[id number] Oral 360 600 Other: Voiding Method Toilet Toilet # Voids 1 3 2 - Exam PHYSICAL EXAMINATION: Patient is lying in the bed comfortably, no acute distress, awake alert and oriented.. HEENT: Normocephalic. Neck is supple. Pupils reactive. Nostrils clear. Oral cavity is moist. Ears reveal no drainage. Neck reveals no JVD, carotid bruits, or thyromegaly. CHEST EXAMINATION: Trachea is central. Symmetrical expansion. Bilateral wheezing and scattered rhonchi. CARDIAC: Normal S1, S2 with no gallops. No murmurs ABDOMEN: Soft. Bowel sounds normal. No organomegaly. No abdominal bruits. Extremities: reveal no edema. No clubbing or cyanosis Neurologically awake, alert, oriented x3 with well-coordinated movements. No focal deficits noted Skin: No rash or skin lesions. Psychiatric: Coperative. Nonsuicidal Musculoskeletal: No joint swelling or deformity. Normal range of motion. - Labs CBC & Chem 7: 02/14/19 10:00 02/14/19 10:00 Labs: Abnormal Lab Results - Last 24 Hours (Table) 02/15/19 02/15/19 02/15/19 Range/Units 06:47 10:56 16:52 POC Glucose (mg/dL) 136 H 184 H 152 H (75-99) mg/dL 02/15/19 Range/Units 19:34 POC Glucose (mg/dL) 114 H (75-99) mg/dL Assessment and Plan Assessment: Difficulty in breathing secondary to acute COPD exacerbation Possible post obstructive pneumonia Small cell lung cancer. Currently undergoing radiation since February 07 GERD Osteoarthritis Ongoing nicotine addiction Anxiety/depression DVT prophylaxis with heparin subcu Plan: Patient will be continued on IV steroids, DuoNeb's and oxygen therapy as needed. Started on antibiotics in the form of Augmentin. Patient is currently not on home oxygen. Continue the pain medications and follow up closely. Pulmonary will be consulted and further recommendations based on the clinical course. Smoking cessation has been counseled. Prognosis is Guarded at this time. Time with Patient: Greater than 30
[2019-02-16] MEDS: HYDROcodone/APAP 10-325MG 1 EACH TAB PO PRN ×4 (03:38→21:59)
[2019-02-16] MEDS: methylPREDNISolone SOD SUCCI 125 MG/2 ML VIAL IV SCH ×2 (06:18→11:50)
[2019-02-16] MEDS: SODIUM CHLORIDE 0.9% 1,000 ML IV SCH ×3 (06:19→16:04)
[2019-02-16 06:55] LABS: Glucose,Whole Blood 138 mg/dL (75-99)
[2019-02-16] MEDS: IPRATROPIUM-ALBUTEROL 3 ML NEB INHALATION SCH ×3 (07:30→20:05)
[2019-02-16 07:55] LABS: Basophils # (A) 0.1 k/uL (0-0.2); Basophils % (A) 1 %; Eosinophils % (A) 0 %; HCT 39.1 % (34.0-46.0); HGB 12.9 gm/dL (11.4-16.0); Lymphocytes # (A) 0.3 k/uL (1.0-4.8); Lymphocytes % (A) 3 %; MCH 32.3 pg (25.0-35.0); MCHC 32.9 g/dL (31.0-37.0); MCV 98.1 fL (80.0-100.0); Mean Platelet Volume 6.8; Monocytes # (A) 0.4 k/uL (0-1.0); Monocytes % (A) 4 %; Neutrophils % (A) 91 %; Platelet Count 161 k/uL (150-450); RBC 3.99 m/uL (3.80-5.40); RDW 13.6 % (11.5-15.5); WBC 9.9 k/uL (3.8-10.6)
[2019-02-16] MEDS: INSULIN ASPART (NovoLOG) 100 UNIT/ML VIAL SQ SCH ×4 (08:04→21:10)
[2019-02-16] MEDS: AMOXIC-POT CLAV 875-125MG 1 EACH TAB PO SCH ×2 (08:05→21:10)
[2019-02-16] MEDS: DEXAMETHASONE 2 MG TAB PO SCH ×2 (08:05→21:10)
[2019-02-16] MEDS: HEPARIN SODIUM,PORCINE 5,000 UNIT/ML 1 ML VIAL SQ SCH ×3 (08:05→22:08)
[2019-02-16 08:09] LABS: African American GFR (CKD) >90 (>60 ml/min/1.73 sqM); Anion Gap 8 mmol/L; Blood Urea Nitrogen 17 mg/dL (7-17); Calcium 9.4 mg/dL (8.4-10.2); Carbon Dioxide 21 mmol/L (22-30); Chloride 110 mmol/L (98-107); Glucose 132 mg/dL (74-99); Potassium 4.4 mmol/L (3.5-5.1); Sodium 139 mmol/L (137-145)
[2019-02-16 11:21] LABS: Glucose,Whole Blood 154 mg/dL (75-99)
[2019-02-16 11:38] VITALS: RESP 20
--- NOTE | 2019-02-16 13:46 | P.PN ---
Subjective Progress Note Date: 02/16/19 63-year-old female patient with known history of COPD who was recently diagnosed having small cell lung cancer which is currently metastatic. 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 A PET scan showed abnormal uptake in the superior lateral and superior medial right apex of the lung and the right hilum compatible with neoplasm. There were multiple right hilar and pretracheal and subcarinal lymph nodes suspicious for metastases. There were at least for hepatic metastases and multilevel metastatic lesions involving the vertebral body in the cervical and the thoracic and the lumbar spine. The patient was supposed to start radiation yesterday when she came in she was found to be short of breath and she was sent to the emergency department where she was admitted for an acute COPD exacerbation pH claims that she quit smoking approximately 3 days ago. She has been maintained on Spiriva on outpatient basis in addition to albuterol nebulizer and albuterol solution on a when necessary basis. No chest pain. No hemoptysis. No pleurisy. The chest x-ray showed increase in the right upper lobe consolidation. There was also an underlying upper lobe mass. Based on my review of the chest x-ray, there is volume of the right upper lobe is very much likely that the patient had a right upper lobe collapse with possible postobstructive pneumonia. She is currently on DuoNeb nebulized treatments around the clock. He is also on IV Solu Medrol. She is feeling slightly better. On today's evaluation of 02/16/2019, patient is feeling better and she is less short of breath. She is breathing much easier for now. No hemoptysis. No pleurisy pH is on DuoNeb nebulized treatments around the clock and she is also on IV Solu-Medrol. She has developed some thrush. She is scheduled to start radiation therapy to her brain as of tomorrow. She is locally staying at the [facility]. Objective - Vital Signs Vital signs: Vital Signs Temp 97.5 F L 02/16/19 11:07 Pulse 109 H 02/16/19 11:07 Resp 20 02/16/19 11:07 BP 184/94 02/16/19 11:07 Pulse Ox 97 02/16/19 11:07 Intake & Output 02/15/19 02/16/19 02/16/19 18:59 06:59 18:59 Intake Total 360 2400 Balance 360 2400 Weight 47.899 kg Intake: Intake, IV Titration 1200 Amount Sodium Chloride 0.9% 1, 1200 000 ml @ 100 mls/hr IV . Q10H [facility] Rx#:[id number] Oral 360 1200 Other: Voiding Method Toilet Toilet Toilet # Voids 3 2 - Exam GENERAL EXAM: Alert, pleasant 63-year-old female patient, comfortable in no apparent distress. On 2 L nasal cannula. HEAD: Normocephalic. EYES: Normal reaction of pupils, equal size. NOSE: Clear with pink turbinates. THROAT: No erythema or exudates. She has oropharyngeal candidiasis. NECK: No masses, no JVD. CHEST: No chest wall deformity. LUNGS: Equal air entry with scattered rhonchi, end expiratory wheeze, diminished. CVS: S1 and S2 normal with no audible murmur, regular rhythm. ABDOMEN: No hepatosplenomegaly, normal bowel sounds, no guarding or rigidity. SPINE: No scoliosis or deformity SKIN: No rashes CENTRAL NERVOUS SYSTEM: No focal deficits, tone is normal in all 4 extremities. EXTREMITIES: There is no peripheral edema. No clubbing, no cyanosis. Peripheral pulses are intact. - Labs CBC & Chem 7: 02/16/19 07:33 02/16/19 07:33 Labs: Abnormal Lab Results - Last 24 Hours (Table) 02/15/19 02/15/19 02/16/19 Range/Units 16:52 19:34 06:54 Neutrophils # (1.3-7.7) k/uL Lymphocytes # (1.0-4.8) k/uL Chloride (98-107) mmol/L Carbon Dioxide (22-30) mmol/L Glucose (74-99) mg/dL POC Glucose (mg/dL) 152 H 114 H 138 H (75-99) mg/dL 02/16/19 02/16/19 02/16/19 Range/Units 07:33 07:33 11:10 Neutrophils # 9.0 H (1.3-7.7) k/uL Lymphocytes # 0.3 L (1.0-4.8) k/uL Chloride 110 H (98-107) mmol/L Carbon Dioxide 21 L (22-30) mmol/L Glucose 132 H (74-99) mg/dL POC Glucose (mg/dL) 154 H (75-99) mg/dL Assessment and Plan Plan: 1 right upper lobe atelectasis with possible postobstructive pneumonia. Right upper lobe atelectasis most likely secondary to right hilar mass causing mass effect on the right upper lobe. 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 Continue steroids and Augmentin 875 mg by mouth twice a day for postobstructive pneumonia. Proceed with radiation therapy to the brain. We'll collaborate with oncology and radiation therapy regarding the care of her small cell lung cancer. Prognosis poor based on the above-mentioned comorbidities. The patient will need heparin subcu for deep prophylaxis. She will undergo radiation therapy tomorrow and she can be discharged back to the [facility] in a.m.
[2019-02-16] MEDS: NYSTATIN 100,000 UNIT/ML SUSP 500,000 UNIT/5 ML CUP PO SCH ×3 (13:57→21:10)
[2019-02-16 16:57] LABS: Glucose,Whole Blood 149 mg/dL (75-99)
[2019-02-16 19:40] LABS: Glucose,Whole Blood 173 mg/dL (75-99)
[2019-02-16 20:56] VITALS: TEMP 97.9
[2019-02-16] MEDS: MELATONIN 3 MG TABLET PO PRN (21:58)
--- NOTE | 2019-02-16 23:33 | P.PN ---
Subjective Progress Note Date: 02/16/19 Principal diagnosis: Acute COPD exacerbation Post obstructive pneumonia Patient is a 63-year-old female with a known history of small cell lung cancer currently undergoing chemotherapy since 02/07/2019, COPD, GERD, osteoarthritis and anxiety/depression as well as ongoing nicotine addiction came to ER with complaints of difficulty breathing since last night. Patient had radiation therapy yesterday afternoon. Patient has been using inhalers at home but felt very exhausted and tired. Presented to ER with worsening shortness of breath. Patient does have cough without much sputum production. Denied any fever or chills. Patient does have a history of recently diagnosed small cell lung cancer with metastases to liver and cervical spine. EKG showed sinus tachycardia with premature ventricular contractions Chest x-ray showed interval marked increase in consolidation involving right upper lobe. Underlying hiatal upper lobe mass previously reported by computed tomography scan.. This may represent postobstructive pneumonia or progression of disease. Laboratory data reviewed. 02/15/2019 Patient is still complaining of difficulty breathing and wheezing on examinatio n. Denied any complaints of chest pain. Patient has been afebrile. Started on antibiotics for postobstructive pneumonia. Continue on oxygen therapy. No nausea vomiting or abdominal pain. No diarrhea or dysuria. Tolerating oral diet. 02 16 2019 Patient says that her breathing status is about the same. Still requiring oxygen with another cannula. No complaints of chest pain. Lung exam showed right upper bronchial sounds. No wheezing noted today. Currently being continued on antibiotics. Patient will be evaluated for home oxygen. Patient developed oral thrush and nystatin swish swallow was ordered. Patient has been afebrile. No leukocytosis. Anticipate discharge in next 24 hours. Current medications reviewed. Objective - Vital Signs Vital signs: Vital Signs Temp 97.9 F 02/16/19 20:54 Pulse 73 02/16/19 20:54 Resp 20 02/16/19 20:54 BP 158/82 02/16/19 20:54 Pulse Ox 96 02/16/19 20:54 Intake & Output 02/16/19 02/16/19 02/17/19 06:59 18:59 06:59 Intake Total 2400 1400 590 Balance 2400 1400 590 Intake: Intake, IV Titration 1200 600 Amount Sodium Chloride 0.9% 1, 1200 600 000 ml @ 100 mls/hr IV . Q10H [facility] Rx#:[id number] Oral 1200 800 590 Other: Voiding Method Toilet Toilet Toilet # Voids 2 2 1 - Exam PHYSICAL EXAMINATION: Patient is lying in the bed comfortably, no acute distress, awake alert and oriented.. HEENT: Normocephalic. Neck is supple. Pupils reactive. Nostrils clear. Oral cavity is moist. Ears reveal no drainage. Neck reveals no JVD, carotid bruits, or thyromegaly. CHEST EXAMINATION: Trachea is central. Symmetrical expansion. Right upper and midlung bronchial sounds. No wheezing. No crackles.. CARDIAC: Normal S1, S2 with no gallops. No murmurs ABDOMEN: Soft. Bowel sounds normal. No organomegaly. No abdominal bruits. Extremities: reveal no edema. No clubbing or cyanosis Neurologically awake, alert, oriented x3 with well-coordinated movements. No f ocal deficits noted Skin: No rash or skin lesions. Psychiatric: Coperative. Nonsuicidal Musculoskeletal: No joint swelling or deformity. Normal range of motion. - Labs CBC & Chem 7: 02/16/19 07:33 02/16/19 07:33 Labs: Abnormal Lab Results - Last 24 Hours (Table) 02/16/19 02/16/19 02/16/19 Range/Units 06:54 07:33 07:33 Neutrophils # 9.0 H (1.3-7.7) k/uL Lymphocytes # 0.3 L (1.0-4.8) k/uL Chloride 110 H (98-107) mmol/L Carbon Dioxide 21 L (22-30) mmol/L Glucose 132 H (74-99) mg/dL POC Glucose (mg/dL) 138 H (75-99) mg/dL 02/16/19 02/16/19 02/16/19 Range/Units 11: 16:56 19:39 Neutrophils # (1.3-7.7) k/uL Lymphocytes # (1.0-4.8) k/uL Chloride (98-107) mmol/L Carbon Dioxide (22-30) mmol/L Glucose (74-99) mg/dL POC Glucose (mg/dL) 154 H 149 H 173 H (75-99) mg/dL Assessment and Plan Assessment: Difficulty in breathing secondary to acute COPD exacerbation and pneumonia. Possible post obstructive pneumonia Small cell lung cancer. Currently undergoing radiation since February 07 GERD Osteoarthritis Ongoing nicotine addiction Anxiety/depression DVT prophylaxis with heparin subcu Plan: Patient will be continued on DuoNeb's and oxygen therapy as needed. Started on antibiotics in the form of Augmentin. Patient is currently not on home oxygen. Continue the pain medications and follow up closely. Pulmonary will be consulted and further recommendations based on the clinical course. Smoking cessation has been counseled. Prognosis is Guarded at this time. Time with Patient: Greater than 30
[2019-02-17] MEDS: HYDROcodone/APAP 10-325MG 1 EACH TAB PO PRN ×2 (04:03→09:26)
[2019-02-17 05:16] VITALS: BP 146/77; PULSE 112
[2019-02-17 06:53] LABS: Glucose,Whole Blood 105 mg/dL (75-99)
[2019-02-17] MEDS: IPRATROPIUM-ALBUTEROL 3 ML NEB INHALATION SCH ×2 (07:55→11:31)
--- NOTE | 2019-02-17 08:59 | CDI ---
Documentation Clarification Form Date: 02/17/2019 8:39:04 AM From: Susie Orlando RN, CCDS Admit Date: 02/14/2019 2:42:00 PM Patient Name: Iva Acuna Visit Number: [id number] Discharge Date: ATTENTION: The Clinical Documentation Specialists (CDI) and [facility] Coding Staff appreciate your assistance in clarifying documentation. Please respond to the clarification below the line at the bottom and electronically sign. The CDI & [facility] Coding staff will review the response and follow-up if needed. Please note: Queries are made part of the Legal Health Record. If you have any questions, please contact the author of this message via ITS. Dr. Haider The patient presented with the following respiratory symptoms: Shortness of breath, progressively worse. She has exertional dyspnea and nonproductive cough. 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 On respiratory exam: She has wheezes, accessory muscle use, breath sounds. No reported history of home O2 in use. Chest X-ray: markek increased in consolidation involving the right upper lobe. Underlying hilar or upper lobe mass previously reported by CT. this may represent postobsturcitive atelectasis, postobstructive pneumonia or progression of disease. Vital signs: 104/61 119 24 98.2 92 % 2/L NC; 120/83 103 18 85 % on 2/L NC Pulse oximetry: 91% 2/L, 85 % 2/L 93/% 2/L, 98 % 2/L Treatment: Breathing tx Albuterol /Iprotropium Duoneb's Monitor O2 Sat's (titrate) Solu-Medrol IV (now change to Dexamethasone PO) Augmentin PO IV Fluids In your professional opinion, can you please clarify if these findings signify one of the following conditions? Acute Respiratory Failure Acute on Chronic Respiratory Failure Chronic Respiratory Failure Acute Respiratory Distress Other Diagnosis, please specify Unable to determine Specificity: If known, further specify (if known): With hypercapnia? (pCO2 >50 and pH <7.35) With hypoxia? (pO2 <60 mm Hg or SpO2 <91% on room air) (Last Query Form Revision: December 2018) MTDD
[2019-02-17] MEDS: INSULIN ASPART (NovoLOG) 100 UNIT/ML VIAL SQ SCH (09:20)
[2019-02-17] MEDS: AMOXIC-POT CLAV 875-125MG 1 EACH TAB PO SCH (09:24)
[2019-02-17] MEDS: NYSTATIN 100,000 UNIT/ML SUSP 500,000 UNIT/5 ML CUP PO SCH (09:24)
[2019-02-17] MEDS: DEXAMETHASONE 2 MG TAB PO SCH (09:25)
[2019-02-17] MEDS: HEPARIN SODIUM,PORCINE 5,000 UNIT/ML 1 ML VIAL SQ SCH (09:25)
[2019-02-17 11:13] LABS: Glucose,Whole Blood 118 mg/dL (75-99)
--- NOTE | 2019-02-17 13:12 | P.PN ---
Subjective Progress Note Date: 02/17/19 Principal diagnosis: Postobstructive pneumonia involving the right upper lobe and metastatic small cell lung cancer. 63-year-old female patient with known history of COPD who was recently diagnosed having small cell lung cancer which is currently metastatic. 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 A PET scan showed abnormal uptake in the superior lateral and superior medial right apex of the lung and the right hilum compatible with neoplasm. There were multiple right hilar and pretracheal and subcarinal lymph nodes suspicious for metastases. There were at least for hepatic metastases and multilevel metastatic lesions involving the vertebral body in the cervical and the thoracic and the lumbar spine. The patient was supposed to start radiation yesterday when she came in she was found to be short of breath and she was sent to the emergency department where she was admitted for an acute COPD exacerbation pH claims that she quit smoking approximately 3 days ago. She has been maintained on Spiriva on outpatient basis in addition to albuterol nebulizer and albuterol solution on a when necessary basis. No chest pain. No hemoptysis. No pleurisy. The chest x-ray showed increase in the right upper lobe consolidation. There was also an underlying upper lobe mass. Based on my review of the chest x-ray, there is volume of the right upper lobe is very much likely that the patient had a right upper lobe collapse with possible postobstructive pneumonia. She is currently on DuoNeb nebulized treatments around the clock. He is also on IV Solu Medrol. She is feeling slightly bet ter. On today's evaluation of 02/16/2019, patient is feeling better and she is less short of breath. She is breathing much easier for now. No hemoptysis. No pleurisy pH is on DuoNeb nebulized treatments around the clock and she is also on IV Solu-Medrol. She has developed some thrush. She is scheduled to start radiation therapy to her brain as of tomorrow. She is locally staying at the [facility]. Patient was reevaluated today on 02/17/2019, patient is feeling better, justina thing easier, hardly any cough, no wheezing, no shortness of breath. No hemoptysis. Remains on bronchodilators, and remains on oxygen at 2 L nasal cannula per minute, O2 saturation is 92%. Labs including CBC and basic metabolic profile were noted to be normal. Renal profile is normal. Patient r emains on nystatin for oral thrush. She is afebrile, and feeling better overall. Objective - Vital Signs Vital signs: Vital Signs Temp 97.9 F 02/17/19 05:00 Pulse 112 H 02/17/19 05:00 Resp 20 02/17/19 05:00 BP 146/77 02/17/19 05:00 Pulse Ox 92 L 02/17/19 09:01 Intake & Output 02/16/19 02/17/19 02/17/19 18:59 06:59 18:59 Intake Total 1400 990 Balance 1400 990 Intake: Intake, IV Titration 600 400 Amount Sodium Chloride 0.9% 1, 600 400 000 ml @ 100 mls/hr IV . Q10H [facility] Rx#:[id number] Oral 800 590 Other: Voiding Method Toilet Toilet Toilet # Voids 2 1 - Exam Physical exam revealed a 63-year-old female in no distress. Head: Atraumatic normocephalic. HEENT: PERRLA, EOMI, no icterus. CHEST EXAMINATION: Symmetrical chest expansion, clear breath sounds bilaterally, tenderness over the right upper anterior chest wall area over her Port-A-Cath. CARDIAC: Normal S1 and S2, no S3 gallop. ABDOMEN: Soft nontender no megaly no rebound no guarding.. Extremities: reveal no edema. No clubbing or cyanosis Neurologically alert oriented 3, no gross focal neurologic deficits. Skin: No rash or skin lesions. Psychiatric: Normal mood affect and normal mental status examination. Musculoskeletal: Normal range of motion, no deformities. - Labs CBC & Chem 7: 02/16/19 07:33 02/16/19 07:33 Labs: Abnormal Lab Results - Last 24 Hours (Table) 02/16/19 02/16/19 02/17/19 Range/Units 16:56 19:39 06:50 POC Glucose (mg/dL) 149 H 173 H 105 H (75-99) mg/dL 02/17/19 Range/Units 11:08 POC Glucose (mg/dL) 118 H (75-99) mg/dL Assessment and Plan Assessment: Impression: 1 acute hypoxic respiratory failure secondary to right upper lobe postobstructive pneumonitis, underlying COPD with acute exacerbation, and underlying small cell lung cancer with a right hilar fullness. 2 history of severe COPD, FEV1 is in the range of 51% baseline. 3 small cell lung cancer, currently undergoing radiation 4 multiple comorbidities including osteoarthritis, GERD, and ongoing nicotine addiction. History of seizure disorder, oropharyngeal candidiasis Recommendation: Continue bronchodilators, continue Augmentin, continue steroids, continued nystatin, proceed with radiation to the brain, consider discharge planning in the next 24 hours, and follow-up on outpatient basis with Dr. Sidney Fortune we'll continue to follow. Patient may need home O2 if discharged home in the next 24 hours. Time with Patient: Less than 30
--- NOTE | 2019-02-17 14:07 | P.DS ---
Providers Date of admission: 02/14/19 14:42 Expected date of discharge: 02/17/19 Attending physician: Margarita Hsieh Consults: 02/14/19 14:42 Consult Physician Routine Consulting Provider: Sly Little Consult Reason/Comments: COPD exacerbation Do you want consulting provider notified?: Already Contacted Primary care physician: Sly Little [facility] Course: Final diagnosis Difficulty in breathing secondary to acute COPD exacerbation and pneumonia. Possible post obstructive pneumonia Small cell lung cancer GERD Osteoarthritis Ongoing nicotine addiction Anxiety/depression DVT prophylaxis Discharge disposition Patient is being discharged in a stable condition with guarded prognosis to home and will be going to [facility] this afternoon for radiation. Per nursing staff patient is staying at the [facility] during radiation. Total time taken is 35 minutes. History of present illness This is a 63-year-old female who was recently admitted with difficulty in breathing was found to have an acute exacerbation of her COPD and possible post- obstructive pneumonia and was being closely monitored. Pulmonary was following. Patient was being maintained on bronchodilators along with IV steroids and antibiotics. Patient will continue on her dexamethasone along with nebulized treatments, and antibiotics in the form of Augmentin for the next few days in the outpatient setting. Patient will follow-up with her primary care provider and pulmonary upon discharge. Patient states that she has a nebulizer but has no ampules at home. A prescription was provided. Currently patient's condition is stable and would like to go home today. Patient is currently staying at the [facility] and is receiving radiation treatment at [facility] and has an appointment scheduled for today at 1 PM. Patient denies any chest pain, shortness of breath, or palpitations at this time. Patient is afebrile. Patient denies any nausea or vomiting and is tolerating diet. Patient had a home 02 evaluation and did not qualify for home oxygen. As mentioned previously patient will follow up with pulmonary the outpatient setting upon discharge. Extremely guarded prognosis. On exam vital signs are stable. Temp is 97.9F, pulse is 112, respirations are 20, blood pressure is 146/77, oxygen saturation is 92% on room air. Cardio S1, S2 are present. Respiratory system shows diminished breath sounds at the bases with a few scattered rhonchi noted. Abdomen is soft and nontender. Nervous system shows no focal deficits. Please refer to medication reconciliation sheet for a list of medications. Patient Condition at Discharge: Fair Plan - Discharge Summary Discharge Rx Participant: Yes New Discharge Prescriptions: New Amoxic-Pot Clav 875-125Mg [Augmentin 875-125] 1 each PO Q12HR 6 Days #12 tab Nystatin 100,000 Unit/ml Susp [Mycostatin Oral Susp] 500,000 unit PO QID 5 D ays #20 cup Albuterol Nebulized [Ventolin Nebulized] 2.5 mg INHALATION TID 30 Days #90 nebu Continue Albuterol Inhaler [Ventolin Hfa Inhaler] 2 puff INHALATION RT-Q6H PRN PRN Reason: Shortness Of Breath Tiotropium Dime Box [Spiriva] 1 cap INHALATION RT-DAILY Vitamin C/Biotin [Hair, Skin and Nails] 1 tab PO DAILY Hydrocodone/Acetaminophen [Vincent 10-325] 1 tab PO Q6H PRN PRN Reason: Pain Melatonin 3 mg PO HS PRN PRN Reason: Insomnia Dexamethasone [Hexadrol] 2 mg PO BID Discontinued Albuterol Nebulized [Ventolin Nebulized] 2.5 mg INHALATION RT-TID PRN PRN Reason: Shortness Of Breath Discharge Medication List Albuterol Inhaler [Ventolin Hfa Inhaler] 2 puff INHALATION RT-Q6H PRN 12/31/18 [History] Tiotropium Dime Box [Spiriva] 1 cap INHALATION RT-DAILY 01/16/19 [History] Dexamethasone [Hexadrol] 2 mg PO BID 02/14/19 [History] Hydrocodone/Acetaminophen [Vincent 10-325] 1 tab PO Q6H PRN 02/14/19 [History] Melatonin 3 mg PO HS PRN 02/14/19 [History] Vitamin C/Biotin [Hair, Skin and Nails] 1 tab PO DAILY 02/14/19 [History] Albuterol Nebulized [Ventolin Nebulized] 2.5 mg INHALATION TID 30 Days #90 nebu 02/17/19 [Rx] Amoxic-Pot Clav 875-125Mg [Augmentin 875-125] 1 each PO Q12HR 6 Days #12 tab 02/17/19 [Rx] Nystatin 100,000 Unit/ml Susp [Mycostatin Oral Susp] 500,000 unit PO QID 5 Days #20 cup 02/17/19 [Rx] Follow up Appointment(s)/Referral(s): Sly Little MD [Primary Care Provider] - 1-2 days Patient Instructions/Handouts: Lung Cancer (DC), COPD (Chronic Obstructive Pulmonary Disease) (DC) Activity/Diet/Wound Care/Special Instructions: Patient will be receiving her radiation treatment today around 1pm at her appointment at [facility] patient will follow up with pulmonary in the outpatient setting patient will follow up with pcp this week continue antibiotics until finished continue current diet Discharge Disposition: HOME SELF-CARE
== END 2019-02-17 12:53 | disposition home or self-care (01) | DRG 193 ==
LOC: EC 09:40 → 3NMEDONC 14:42
PROVIDERS: ADMIT Internal Medicine; ATTEND Internal Medicine
DX: J18.9 Pneumonia, unspecified organism (principal); J96.01 Acute respiratory failure with hypoxia; J44.0 Chronic obstructive pulmonary disease with (acute) lower respiratory infection; J44.1 Chronic obstructive pulmonary disease with (acute) exacerbation; C78.7 Secondary malignant neoplasm of liver and intrahepatic bile duct; C79.31 Secondary malignant neoplasm of brain; C79.51 Secondary malignant neoplasm of bone; J98.19 Other pulmonary collapse; C34.11 Malignant neoplasm of upper lobe, right bronchus or lung; J98.11 Atelectasis; B37.0 Candidal stomatitis; E86.0 Dehydration; G40.909 Epilepsy, unspecified, not intractable, without status epilepticus; K21.9 Gastro-esophageal reflux disease without esophagitis; I49.3 Ventricular premature depolarization; M19.90 Unspecified osteoarthritis, unspecified site; L40.9 Psoriasis, unspecified; F41.8 Other specified anxiety disorders; F17.210 Nicotine dependence, cigarettes, uncomplicated; Z71.6 Tobacco abuse counseling; Z79.52 Long term (current) use of systemic steroids; Z79.899 Other long term (current) drug therapy; Z91.018 Allergy to other foods; Z90.710 Acquired absence of both cervix and uterus; Z90.13 Acquired absence of bilateral breasts and nipples; Z98.890 Other specified postprocedural states; Z83.2 Family history of diseases of the blood and blood-forming organs and certain disorders involving the immune mechanism; Z84.89 Family history of other specified conditions
CPT/HCPCS: 36415; 71046; 80048; 80053; 83735; 83880; 84484; 85025; 85610; 85730; 93005; 94640; 94760; 96361; 96374; 99291

== ENCOUNTER 2019-03-09 11:56 | Inpatient (IN) | payer MEDICARE, OTHER ==
[2019-03-09] MEDS ORDERED: IBUPROFEN 600 MG TAB PO STA (12:03)
[2019-03-09] MEDS ORDERED: LEVOFLOXACIN 750MG-D5W PMX 750 MG in DEXTROSE/WATER 1 150ML.BAG IVPB STA (12:03)
[2019-03-09] MEDS ORDERED: ACETAMINOPHEN TAB 500 MG TAB PO STA (12:03)
[2019-03-09] MEDS ORDERED: HYDROmorphone 1 MG/ML 1 ML SYRINGE IVP STA (12:06)
--- NOTE | 2019-03-09 12:06 | ED ---
General Adult HPI - General Stated complaint: PHOEBE Time Seen by Provider: 03/09/19 12:00 Source: patient, EMS, RN notes reviewed, old records reviewed - History of Present Illness Initial comments: This is a 63-year-old female with a past medical history significant for lung cancer. Patient states she's had some chemotherapy and radiation in the past. Patient states is mostly getting more chemotherapy but they have yet to do that. Patient today called because she's having difficulty breathing over the last 5 days and she states her whole body aches as well. Patient was oxygenating at 85% when EMS arrived they put her on a nonrebreather and gave her breathing treatments and she is 96% on arrival with a nonrebreather on. Patient states everything hurts in her body she is not specific at all. Patient is unaware that she had a fever she denies any chills. Patient states she is coughing and coughing up quite a bit of sputum. Patient denies any lightheadedness or dizziness. Patient denies any abdominal pain patient denies nausea vomiting. - Related Data Home Medications Medication Instructions Recorded Confirmed Albuterol Inhaler [Ventolin Hfa 2 puff INHALATION RT-Q6H PRN 12/31/18 02/14/19 Inhaler] Tiotropium [place] [Spiriva] 1 cap INHALATION RT-DAILY 01/16/19 02/14/19 Dexamethasone [Hexadrol] 2 mg PO BID 02/14/19 02/14/19 Hydrocodone/Acetaminophen [[place] 1 tab PO Q6H PRN 02/14/19 02/14/19 10-325] Melatonin 3 mg PO HS PRN 02/14/19 02/14/19 Vitamin C/Biotin [Hair, Skin and 1 tab PO DAILY 02/14/19 02/14/19 Nails] Previous Rx's Medication Instructions Recorded Albuterol Nebulized [Ventolin 2.5 mg INHALATION TID 30 Days #90 02/17/19 Nebulized] nebu Amoxic-Pot Clav 875-125Mg 1 each PO Q12HR 6 Days #12 tab 02/17/19 [Augmentin 875-125] Nystatin 100,000 Unit/ml Susp 500,000 unit PO QID 5 Days #20 cup 02/17/19 [Mycostatin Oral Susp] Allergies Allergy/AdvReac Type Severity Reaction Status Date / Time coconut Allergy gets dizzy Verified 02/14/19 10:42 and had a seizure mushroom Allergy SOB, Verified 02/14/19 10:42 tongue swelling Review of Systems ROS Statement: Those systems with pertinent positive or pertinent negative responses have been documented in the HPI. ROS Other: All systems not noted in ROS Statement are negative. Past Medical History Past Medical History: Asthma, Cancer, COPD, GERD/Reflux, Osteoarthritis (OA), Skin Disorder Additional Past Medical History / Comment(s): Metastatic small cell lung cancer, psoriasis, COPD with a baseline FEV1 of 51% of predicted, chronic smoker, c hronic marijuana user, history of seizures disorder History of Any Multi-Drug Resistant Organisms: None Reported Past Surgical History: Breast Surgery, Ear Surgery, Hysterectomy, Tonsillectomy Additional Past Surgical History / Comment(s): ryan breast lumpectomy ("d/t crystallization"), oral surgery, surgery on rt ear after injury. Bronchoscopy 01/02/19. mediport right side chest Past Anesthesia/Blood Transfusion Reactions: Family History of Problems w/ Anesthesia Additional Past Anesthesia/Blood Transfusion Reaction / Comment(s): "dad on operative table-he had sepsis from blood clot in his leg" Past Psychological History: Anxiety, Depression Smoking Status: Current every day smoker Past Alcohol Use History: Daily Additional Past Alcohol Use History / Comment(s): Smoking down to 2 cigarettes daily, has smoked since age 13, 1 ppd Past Drug Use History: None Reported Additional Drug Use History / Comment(s): occ use - Past Family History Father Family Medical History: Deep Vein Thrombosis (DVT) Additional Family Medical History / Comment(s): "Gangrene in leg, on the table," possible DVT General Exam - General Exam Comments Initial Comments: GENERAL: Patient is well-developed and well-nourished. Patient is nontoxic and well- hydrated and is in moderate distress. ENT: Neck is soft and supple. No significant lymphadenopathy is noted. Oropharynx is clear. Moist mucous membranes. Neck has full range of motion without eliciting any pain. EYES: The sclera were anicteric and conjunctiva were pink and moist. Extraocular movements were intact and pupils were equal round and reactive to light. Eyelids were unremarkable. PULMONARY: Patient has a respiratory wheezing. CARDIOVASCULAR: There is a regular rate and rhythm without any murmurs gallops or rubs. ABDOMEN: Soft and nontender with normal bowel sounds. No palpable organomegaly was noted. There is no palpable pulsatile mass. SKIN: Skin is clear with no lesions or rashes and otherwise unremarkable. NEUROLOGIC: Patient is alert and oriented x3. Cranial nerves II through XII are grossly intact. Motor and sensory are also intact. Normal speech, volume and content. Symmetrical smile. MUSCULOSKELETAL: Normal extremities with adequate strength and full range of motion. No lower extremity swelling or edema. No calf tenderness. LYMPHATICS: No significant lymphadenopathy is noted PSYCHIATRIC: Normal psychiatric evaluation. Course Vital Signs 03/09/19 03/09/19 03/09/19 11:57 12:08 12:52 Temperature 100.4 F H Pulse Rate 89 91 Respiratory 20 20 18 Rate Blood Pressure 99/45 113/66 O2 Sat by Pulse 94 L 98 Oximetry Medical Decision Making - Medical Decision Making EKG shows sinus tachycardia with occasional PVCs at 111 bpm MI interval 212 QRS 76 QT interval 324 QTC is 440. Patient's EKG shows no ST segment elevation. Patient's hemoglobin was 7.3 which is down from 12.43 weeks ago. I gave the patient 1 unit of packed red blood cells. Chest x-ray showed no acute abnormality. Patient did look like she had pancytopenia in because of low-grade fever started on cefepime and Levaquin. I spoke with Dr. Jay she except the patient admitted the patient I wrote admitting orders I consult to Dr. Little as well as oncology. - Lab Data Result diagrams: 03/09/19 12:35 03/09/19 12:35 Lab Results 03/09/19 03/09/19 03/09/19 Range/Units 12:35 12:35 12:35 WBC 0.4 L* (3.8-10.6) k/uL RBC 2.22 L (3.80-5.40) m/uL Hgb 7.3 L D (11.4-16.0) gm/dL Hct 20.4 L (34.0-46.0) % MCV 92.1 D (80.0-100.0) fL MCH 32.7 (25.0-35.0) pg MCHC 35.5 (31.0-37.0) g/dL RDW 13.9 (11.5-15.5) % Plt Count 43 L D (150-450) k/uL Neutrophils # LONG TERM ACUTE CARE REGISTERED NURSE Differential Comment Manual Slide Review Performed RBC Morphology Normal PT (9.0-12.0) sec INR (<1.2) APTT (22.0-30.0) sec Sodium 134 L (137-145) mmol/L Potassium 3.9 (3.5-5.1) mmol/L Chloride 103 (98-107) mmol/L Carbon Dioxide 23 (22-30) mmol/L Anion Gap 8 mmol/L BUN 10 (7-17) mg/dL Creatinine 0.63 (0.52-1.04) mg/dL Est GFR (CKD-EPI)AfAm >90 (>60 ml/min/1.73 sqM) Est GFR (CKD-EPI)NonAf >90 (>60 ml/min/1.73 sqM) Glucose 101 H (74-99) mg/dL Plasma Lactic Acid Hao (0.7-2.0) mmol/L Calcium 8.0 L (8.4-10.2) mg/dL Total Bilirubin 0.6 (0.2-1.3) mg/dL AST 27 (14-36) U/L ALT 30 (9-52) U/L Alkaline Phosphatase 95 (38-126) U/L Troponin I (0.000-0.034) ng/mL Total Protein 5.0 L (6.3-8.2) g/dL Albumin 2.7 L (3.5-5.0) g/dL Influenza Type A RNA Not Detected (Not Detectd) Influenza Type B (PCR) Not Detected (Not Detectd) 03/09/19 03/09/19 03/09/19 Range/Units 12:35 12:35 12:35 WBC (3.8-10.6) k/uL RBC (3.80-5.40) m/uL Hgb (11.4-16.0) gm/dL Hct (34.0-46.0) % MCV (80.0-100.0) fL MCH (25.0-35.0) pg MCHC (31.0-37.0) g/dL RDW (11.5-15.5) % Plt Count (150-450) k/uL Neutrophils # Differential Comment Manual Slide Review RBC Morphology PT 10.4 (9.0-12.0) sec INR 1.0 (<1.2) APTT 29.8 (22.0-30.0) sec Sodium (137-145) mmol/L Potassium (3.5-5.1) mmol/L Chloride (98-107) mmol/L Carbon Dioxide (22-30) mmol/L Anion Gap mmol/L BUN (7-17) mg/dL Creatinine (0.52-1.04) mg/dL Est GFR (CKD-EPI)AfAm (>60 ml/min/1.73 sqM) Est GFR (CKD-EPI)NonAf (>60 ml/min/1.73 sqM) Glucose (74-99) mg/dL Plasma Lactic Acid Hao <0.5 L (0.7-2.0) mmol/L Calcium (8.4-10.2) mg/dL Total Bilirubin (0.2-1.3) mg/dL AST (14-36) U/L ALT (9-52) U/L Alkaline Phosphatase (38-126) U/L Troponin I <0.012 (0.000-0.034) ng/mL Total Protein (6.3-8.2) g/dL Albumin (3.5-5.0) g/dL Influenza Type A RNA (Not Detectd) Influenza Type B (PCR) (Not Detectd) Critical Care Time Critical Care Time: Yes Total Critical Care Time: 35 Disposition Clinical Impression: Symptomatic anemia, Pancytopenia, Fever Disposition: ADMITTED IP TO THIS HOSP Referrals: Sly Little MD [Primary Care Provider] - 1-2 days Time of Disposition: 14:07
[2019-03-09] MEDS: SODIUM CHLORIDE 0.9% 500 ML 500 ML IV SCH (12:48)
[2019-03-09 13:01] LABS: HCT 20.4 % (34.0-46.0); MCH 32.7 pg (25.0-35.0); MCHC 35.5 g/dL (31.0-37.0); Mean Platelet Volume 7.8; RBC 2.22 m/uL (3.80-5.40); RDW 13.9 % (11.5-15.5)
[2019-03-09 13:06] LABS: Partial Thromboplastin Time 29.8 sec (22.0-30.0); Prothrombin Time 10.4 sec (9.0-12.0)
[2019-03-09 13:08] LABS: WBC 0.4 k/uL (3.8-10.6)
[2019-03-09 13:09] LABS: HGB 7.3 gm/dL (11.4-16.0); MCV 92.1 fL (80.0-100.0); Platelet Count 43 k/uL (150-450)
[2019-03-09 13:12] LABS: ALT 30 U/L (9-52); AST 27 U/L (14-36); African American GFR (CKD) >90 (>60 ml/min/1.73 sqM); Albumin 2.7 g/dL (3.5-5.0); Alkaline Phosphatase 95 U/L (38-126); Anion Gap 8 mmol/L; Blood Urea Nitrogen 10 mg/dL (7-17); Carbon Dioxide 23 mmol/L (22-30); Chloride 103 mmol/L (98-107); Glucose 101 mg/dL (74-99); Non-African American GFR(CKD) >90 (>60 ml/min/1.73 sqM); Potassium 3.9 mmol/L (3.5-5.1); Sodium 134 mmol/L (137-145); Total Bilirubin 0.6 mg/dL (0.2-1.3)
[2019-03-09] MEDS ORDERED: CEFEPIME 2 GM in SODIUM CHLORIDE 0.9% 100 ML IVPB STA (13:31)
--- NOTE | 2019-03-09 14:00 | XR ---
EXAMINATION TYPE: XR chest 2V DATE OF EXAM: 03/09/2019 COMPARISON: February 14, 2019 HISTORY: Shortness of breath TECHNIQUE: Frontal and lateral views of the chest are obtained. FINDINGS: Scattered senescent parenchymal changes noted. Hyperinflation compatible with COPD. No evidence for infiltrate. No evidence for atelectasis. Much improved aeration right upper lobe. Heart size is stable. Mediastinal structures are stable and grossly unremarkable. No evidence for hilar prominence. Degenerative changes dorsal spine. IMPRESSION: 1. No evidence for acute pulmonary disease.
[2019-03-09] MEDS ORDERED: SODIUM CHLORIDE 0.9% 1,000 ML IV ONE (14:08)
[2019-03-09] MEDS ORDERED: MELATONIN 3 MG TABLET PO PRN (17:50)
[2019-03-09] MEDS ORDERED: IPRATROPIUM-ALBUTEROL 3 ML NEB INHALATION PRN (18:47)
[2019-03-09] MEDS: HYDROmorphone 0.5 MG/0.5 ML SYRINGE IVP PRN (19:16)
[2019-03-09 20:14] LABS: Glucose,Whole Blood 114 mg/dL (75-99)
[2019-03-09] MEDS: MORPHINE SULFATE ER 15 MG TABLET PO SCH (20:18)
[2019-03-09] MEDS: ALPRAZolam 0.25 MG TAB PO PRN (20:18)
[2019-03-09] MEDS: SODIUM CHLORIDE 0.9% 1,000 ML IV SCH (20:20)
[2019-03-09] MEDS: methylPREDNISolone SOD SUCCI 125 MG/2 ML VIAL IV SCH (20:20)
[2019-03-09] MEDS: INSULIN ASPART (NovoLOG) 100 UNIT/ML VIAL SQ SCH (20:21)
[2019-03-09] MEDS: IPRATROPIUM-ALBUTEROL 3 ML NEB INHALATION SCH ×2 (20:53→22:57)
[2019-03-09] MEDS: FLUCONAZOLE IN NACL,ISO-OSM 100 MG in SALINE 1 50ML.BAG IVPB SCH (21:09)
[2019-03-09] MEDS: NYSTATIN 100,000 UNIT/ML SUSP 500,000 UNIT/5 ML CUP PO SCH (22:38)
[2019-03-09] MEDS: FILGRASTIM-SNDZ 480 MCG/0.8 ML SYRINGE SQ SCH (22:38)
--- NOTE | 2019-03-09 23:51 | HP ---
HISTORY AND PHYSICAL DATE OF SERVICE: 03/09/2019 CHIEF COMPLAINT: Shortness of breath. 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 Beltre and as well as Dr. Gore in the outpatient setting was complaining of shortness of breath over the past 5 days, which is worsening. The patient also has some difficulty swallowing. Oxygenation only 85% on admission. The patient admitted to the hospital for further evaluation and treatment. Patient has received chemo radiation in the past. Admission white count 0.4 and hemoglobin 7.3. The chest x-ray which was done at admission which was reviewed personally by me showed some bilateral infiltrates. Patient admitted to the hospital for further evaluation and treatment. The patient is significantly macerated at this time. There is no history of fever, rigors or chills. No history of headache, loss of consciousness or seizures. No history of any hematochezia or melena at this time. The patient had fever. PAST MEDICAL HISTORY: History of asthma, COPD, GERD, DJD, history of metastatic small cell lung cancer, history of chronic obstructive, with FEV1 of 51%, anxiety, depression. MEDICATIONS: Prior to admission home medications are: 1. EMLA cream 2.5 topically daily. 2. Ambien 5 mg q.h.s. p.r.n. 3. Morphine sulfate ER 15 mg p.o. b.i.d. 4. Spiriva 1 capsule p.o. b.i.d. 5. Melatonin 3 mg q.h.s. p.r.n. 6. [place] 10 mg q.6h p.r.n. 7. Vitamin C 1 tablet p.o. daily. 8. Ventolin 2.5 t.i.d. 9. Ventolin HFA 2 puffs q.6h p.r.n. ALLERGIES: COCONUT, MUSHROOMS. FAMILY HISTORY: History of deep vein thrombosis and gangrene of the left leg also. SOCIAL HISTORY: History of smoking, continued ongoing. REVIEW OF SYSTEMS: ENT mentioned earlier. CARDIOVASCULAR: No angina or palpitations. RESPIRATION as mentioned earlier. GI no nausea or vomiting. no dysuria. Nervous system: No numbness or weakness. ALLERGY/IMMUNOLOGY: No asthma or hayfever. MUSCULOSKELETAL as mentioned earlier. HEMATOLOGY/ONCOLOGY: No history of anemia. ENDOCRINE no history of hypothyroidism. CONSTITUTIONAL: As mentioned earlier. Dermatology: Negative. Rheumatology: Negative. Psychiatry: As mentioned earlier. PHYSICAL EXAMINATION: Alert and oriented times three. Pulse is 111. Blood pressure 107/70. Respirations 20. Temperature 98.4, pulse ox 94% on 2 L. HEENT conjunctivae normal. Oral mucosa moist, red and beefy. Neck is no jugular venous distention. No carotid bruit. No lymph node enlargement. Cardiovascular system: S1, S2 muffled. No S3, no S4. Tachycardia. Respirations: Breathing efforts are markedly increased. Bilateral scattered rhonchi and crackles. Expiratory wheezing also present. ABDOMEN: Soft, nontender. No mass palpable. LEGS: No edema. No swelling. NERVOUS SYSTEM: Higher functions as mentioned earlier. Mild diffuse weakness. Emaciation also present. SKIN: No ulcers. No rashes. No bleeding. JOINTS: No active deforming arthropathy. LAB: WBC 0.4, hemoglobin 11.2, platelets 73, albumin 2.7. ASSESSMENT: 1. Shortness of breath with possible chronic obstructive pulmonary disease acute exacerbation. 2. Neutropenic fever, possibly. 3. Pancytopenia secondary to malignancy. 4. Xht-skucv-lblu lung cancer with metastases to the brain. 5. Hyponatremia. 6. Generalized gait dysfunction. 7. Severe protein calorie malnutrition with BMI of 15. 8. History of asthma/chronic obstructive pulmonary disease. 9. History of degenerative joint disease. 10.History of continued ongoing nicotine dependence. 11.History of THC. 12.History of seizure disorder. 13.History of breast surgery. 14.History of tonsillectomy. 15.History of lumpectomy. 16.Anxiety/depression. 17.History of THC. RECOMMENDATIONS AND DISCUSSION: This 63-year-old woman who presented with multiple complex medical issues, we will monitor the patient closely, continue the current medications, management and symptomatic treatment. I recommend broad-spectrum IV antibiotics in the form of cefepime. Obtain cultures. Otherwise bronchodilators, IV steroids. Monitor blood sugars closely. Other than that, pain medications. Resume the home medications. DVT prophylaxis. We will consult Hematology/Oncology and as well as the Pulmonary. Guarded prognosis because of multiple complex medical issues. Further recommendations to follow. See orders for details. Discussed with the patient who understands and agrees. A copy of this dictation being forwarded to Dr. Beltre who is the primary physician. MMODL / IJN: [id number] /
[2019-03-10] MEDS: CEFEPIME 2 GM in SODIUM CHLORIDE 0.9% 100 ML IVPB SCH ×3 (00:33→17:34)
[2019-03-10] MEDS: methylPREDNISolone SOD SUCCI 125 MG/2 ML VIAL IV SCH ×4 (00:34→17:31)
[2019-03-10] MEDS: IPRATROPIUM-ALBUTEROL 3 ML NEB INHALATION SCH ×5 (03:21→21:24)
[2019-03-10] MEDS: HYDROmorphone 0.5 MG/0.5 ML SYRINGE IVP PRN (04:34)
[2019-03-10 06:59] LABS: Glucose,Whole Blood 177 mg/dL (75-99)
[2019-03-10] MEDS ORDERED: PANTOPRAZOLE 40 MG TABLET PO SCH (07:30)
[2019-03-10] MEDS: NYSTATIN 100,000 UNIT/ML SUSP 500,000 UNIT/5 ML CUP PO SCH (07:35)
[2019-03-10] MEDS: HYDROcodone/APAP 10-325MG 1 EACH TAB PO PRN ×2 (07:35→17:32)
[2019-03-10] MEDS: MULTIVITAMINS, THERA 1 EACH TAB PO SCH (07:35)
[2019-03-10] MEDS: MORPHINE SULFATE ER 15 MG TABLET PO SCH ×2 (07:36→21:01)
[2019-03-10] MEDS: INSULIN ASPART (NovoLOG) 100 UNIT/ML VIAL SQ SCH ×4 (07:36→22:25)
[2019-03-10] MEDS: SODIUM CHLORIDE 0.9% 1,000 ML IV SCH ×2 (07:41→20:59)
[2019-03-10 07:44] LABS: HCT 27.7 % (34.0-46.0); MCH 32.7 pg (25.0-35.0); MCHC 34.4 g/dL (31.0-37.0); MCV 95.1 fL (80.0-100.0); Mean Platelet Volume 7.6; RBC 2.91 m/uL (3.80-5.40); RDW 13.7 % (11.5-15.5)
[2019-03-10 07:58] LABS: African American GFR (CKD) >90 (>60 ml/min/1.73 sqM); Anion Gap 8 mmol/L; Blood Urea Nitrogen 10 mg/dL (7-17); Calcium 8.2 mg/dL (8.4-10.2); Carbon Dioxide 21 mmol/L (22-30); Chloride 111 mmol/L (98-107); Glucose 145 mg/dL (74-99); Non-African American GFR(CKD) >90 (>60 ml/min/1.73 sqM); Potassium 4.5 mmol/L (3.5-5.1); Sodium 140 mmol/L (137-145)
[2019-03-10 08:06] LABS: HGB 9.5 gm/dL (11.4-16.0); Platelet Count 47 k/uL (150-450); WBC 0.8 k/uL (3.8-10.6)
[2019-03-10] MEDS: NON FORMULARY DRUG (Vitamin C/Biotin [Hair, Skin And Nails] 1 TAB) PO SCH (08:49)
[2019-03-10] MEDS: LIDOCAINE-PRILOCAINE 2.5-2.5% CREAM 5 GM TUBE TOPICAL SCH (08:49)
[2019-03-10 11:13] LABS: Glucose,Whole Blood 192 mg/dL (75-99)
[2019-03-10] MEDS ORDERED: BENZOCAINE SPRAY 1 CAN MUCOUS MEM PRN (11:30)
[2019-03-10] MEDS ORDERED: DEXAMETHASONE ORAL 4 MG/ML VIAL PO SCH (12:00)
[2019-03-10] MEDS: SUCRALFATE 1 GM TAB PO SCH ×2 (12:26→17:31)
[2019-03-10] MEDS: DOCUSATE 100 MG CAP PO SCH ×2 (12:27→20:59)
--- NOTE | 2019-03-10 13:01 | P.CNPUL ---
History of Present Illness Consult date: 03/10/19 Reason for consult: COPD Chief complaint: Difficulty swallowing. And chronic shortness of breath History of present illness: This is a 63-year-old female with multiple medical problems including metastatic small cell lung cancer, COPD, GERD, degenerative joint disease, patient's small cell lung cancer was metastatic to the brain, patient was brought in with 5 days history of increased shortness of breath, cough, some difficulty swallowing. Patient has received chemoradiation in the past, and upon admission she was noted to have pancytopenia. WBC count was 0.4 hemoglobin 7.3 platelets of 43,000. Chest x-ray showed no evidence of pneumonia, there was evidence of scattered parenchymal changes, but no clear-cut evidence of pneumonia or malignancy. Considering the patient's symptoms and considering her pancyt openia, patient was admitted and this consult was initiated. During my evaluation, the patient was mostly complaining of difficulty swallowing. Describes the swallowing as painful to swallow. Patient denies any fever no chills no hemoptysis no chest pain no nausea no vomiting no abdominal pain no melena no hematemesis is no dysuria frequency no urgency looking back at her previous history, the patient had previous MRI of the brain showing numerous foci of pathological enhancement consistent with TELETYPE MECHANIC metastasis. PET scan showed abnormal uptake in the superior lateral and superior medial right apex of the lung. There was also multiple right hilar and pretracheal subcarinal lymphadenopathy suspicious of metastasis. There was also at least some hepatic involvement. And some lesions involving the vertebral body and cervical spine as well as thoracic and lumbar spine. Review of Systems Constitutional: Denies fever chills, but she does report weight loss. Unknown severity of weight loss. HEENT: Denies any headache or blurred vision dizziness, she does have some difficulty swallowing for the last 5 days. Painful to swallow. Pulmonary: Shortness of breath on exertion no cough no wheezing no fever no chills no hemoptysis no chest pain. Cardiac: Denies any other dictations, no syncope, no diaphoresis. GI: Poor appetite, difficulty swallowing, no melena no hematemesis. No abdominal pain. No nausea no vomiting. Genitourinary: Denies any dysuria frequency or urgency. Hematologic: No clotting bleeding or bruising patient did present with pancytopenia. Neurologic denies any headache blurred vision or dizziness. No diplopia. Musculoskeletal: Generalized weakness, no deformities. Skin: No rashes. Psychiatric: Denies any symptoms of depression. Past Medical History Past Medical History: Asthma, Cancer, COPD, GERD/Reflux, Osteoarthritis (OA), Skin Disorder Additional Past Medical History / Comment(s): Metastatic small cell lung cancer, psoriasis, COPD with a baseline FEV1 of 51% of predicted, chronic smoker, chronic marijuana user, history of seizures disorder History of Any Multi-Drug Resistant Organisms: None Reported Past Surgical History: Breast Surgery, Ear Surgery, Hysterectomy, Tonsillectomy Additional Past Surgical History / Comment(s): ryan breast lumpectomy ("d/t crystallization"), oral surgery, surgery on rt ear after injury. Bronchoscopy 01/02/19. mediport right side chest Past Anesthesia/Blood Transfusion Reactions: Family History of Problems w/ Anesthesia Additional Past Anesthesia/Blood Transfusion Reaction / Comment(s): "dad on operative table-he had sepsis from blood clot in his leg" Past Psychological History: Anxiety, Depression Smoking Status: Current some day smoker Past Alcohol Use History: Daily Additional Past Alcohol Use History / Comment(s): Smoking down to 1-2 cigarettes daily, has smoked since age 13, 1 ppd Past Drug Use History: None Reported Additional Drug Use History / Comment(s): occ marijuana use - Past Family History Father Family Medical History: Deep Vein Thrombosis (DVT) Additional Family Medical History / Comment(s): "Gangrene in leg, on the table," possible DVT Medications and Allergies Home Medications Medication Instructions Recorded Confirmed Type Albuterol Inhaler [Ventolin Hfa 2 puff INHALATION RT-Q6H PRN 12/31/18 03/09/19 History Inhaler] Tiotropium [place] [Spiriva] 1 cap INHALATION RT-DAILY 01/16/19 03/09/19 History Hydrocodone/Acetaminophen [[place] 1 tab PO Q6H PRN 02/14/19 03/09/19 History 10-325] Melatonin 3 mg PO HS PRN 02/14/19 03/09/19 History Vitamin C/Biotin [Hair, Skin and 1 tab PO DAILY 02/14/19 03/09/19 History Nails] Albuterol Nebulized [Ventolin 2.5 mg INHALATION TID 30 Days #90 02/17/19 03/09/19 Rx Nebulized] nebu Lidocaine-Prilocaine Cream [[place] 1 applic TOPICAL DAILY 03/09/19 03/09/19 History Cream 2.5%/2.5%] Morphine Sulfate [Morphine Sulfate 15 mg PO BID 03/09/19 03/09/19 History ER] Zolpidem [Ambien] 5 mg PO HS PRN 03/09/19 03/09/19 History Allergies Allergy/AdvReac Type Severity Reaction Status Date / Time coconut Allergy gets dizzy Verified 03/09/19 15:16 and had a seizure mushroom Allergy SOB, Verified 03/09/19 15:16 tongue swelling Physical Exam Vitals: Vital Signs Temp Pulse Pulse Resp BP BP Pulse Ox 03/10/19 12:13 97.7 F 100 19 129/81 95 03/10/19 08:36 97 03/10/19 08:28 96 03/10/19 07:10 18 03/10/19 05:00 97.5 F L 52 L 18 101/54 97 03/10/19 03:31 104 H 03/10/19 03:21 100 03/10/19 00:27 987.3 F H 97 18 114/66 03/10/19 00:00 111 H 18 03/09/19 23:08 102 H 03/09/19 23:01 103 H 03/09/19 22:35 98.5 F 97 18 119/57 92 L 03/09/19 22:05 97.6 F 115 H 18 97/63 90 L 03/09/19 21:55 98.6 F 121 H 18 97/63 90 L 03/09/19 21:00 98.5 F 111 H 18 126/70 96 03/09/19 16:23 98.3 F 111 H 20 107/70 94 L 03/09/19 15:00 98.7 F 110 H 20 109/65 92 L 03/09/19 12:52 91 18 113/66 98 Intake and Output 03/09/19 03/10/19 03/10/19 22:59 06:59 14:59 Intake Total 1540 1000 Balance 1540 1000 Intake: Intake, IV Titration 800 450 Amount Cefepime 2 gm In Sodium 100 Chloride 0.9% 100 ml @ 200 mls/hr IVPB Q8HR [facility] Rx#:[id number] Fluconazole in NaCl,Iso- 50 Osm 100 mg In Saline 1 50ml.bag @ 50 mls/hr IVPB DAILY@2000 [facility] Rx#: [id number] Sodium Chloride 0.9% 1, 200 000 ml @ 100 mls/hr IV . Q10H [facility] Rx#:[id number] Sodium Chloride 0.9% 1, 450 450 000 ml @ 75 mls/hr IV . [id number] [facility] Rx#:[id number] Oral 420 240 Blood Product 320 310 Rc As-1 Unit 0 310 [id number] Other: Voiding Method Toilet # Voids 2 1 # Bowel Movements 1 Weight 43.091 kg GENERAL EXAM: Alert, pleasant 63-year-old female patient, comfortable in no apparent distress. On 2 L nasal cannula. HEAD: Normocephalic. Atraumatic. EYES: PERRLA, EOMI, no icterus. NOSE: Clear with pink turbinates. THROAT: Evidence of erythema, and exudates over the tonsillar area. NECK: No masses, no JVD. CHEST: No chest wall deformity. LUNGS symmetrical chest expansion, diminished breath sounds at the bases no rhonchi no wheezes. CVS: S1 and S2 normal with no audible murmur, regular rhythm. ABDOMEN: No hepatosplenomegaly, normal bowel sounds, no guarding or rigidity. SPINE: No scoliosis or deformity SKIN: No rashes CENTRAL NERVOUS SYSTEM: No focal deficits, tone is normal in all 4 extremities. EXTREMITIES: There is no peripheral edema. No clubbing, no cyanosis. Peripheral pulses are intact. Results - Laboratory Findings CBC and BMP: 03/10/19 07:08 03/10/19 07:08 PT/INR, D-dimer PT 10.4 sec (9.0-12.0) 03/09/19 12:35 INR 1.0 (<1.2) 03/09/19 12:35 Abnormal lab findings: Abnormal Labs 03/09/19 03/09/19 03/09/19 12:35 12:35 12:35 WBC 0.4 L* RBC 2.22 L Hgb 7.3 L D Hct 20.4 L Plt Count 43 L D Sodium 134 L Chloride Carbon Dioxide Glucose 101 H POC Glucose (mg/dL) Plasma Lactic Acid Hao <0.5 L Calcium 8.0 L Total Protein 5.0 L Albumin 2.7 L Crossmatch 03/09/19 03/09/19 03/10/19 12:35 20:12 06:58 WBC RBC Hgb Hct Plt Count Sodium Chloride Carbon Dioxide Glucose POC Glucose (mg/dL) 114 H 177 H Plasma Lactic Acid Hao Calcium Total Protein Albumin Crossmatch See Detail 03/10/19 03/10/19 03/10/19 07:08 07:08 11:12 WBC 0.8 L* RBC 2.91 L Hgb 9.5 L D Hct 27.7 L Plt Count 47 L Sodium Chloride 111 H Carbon Dioxide 21 L Glucose 145 H POC Glucose (mg/dL) 192 H Plasma Lactic Acid Hao Calcium 8.2 L Total Protein Albumin Crossmatch - Diagnostic Findings Chest x-ray: image reviewed (No evidence of pneumonia.) Assessment and Plan Assessment: Impression: Acute pancytopenia related to chemotherapy. Possible neutropenic fever and neutropenic sepsis. Acute exacerbation of COPD, known history of COPD, FEV1 is 51%. History of small cell lung cancer with multiple areas of metastasis including TELETYPE MECHANIC metastasis. Difficulty swallowing most likely secondary to radiation esophagitis. History of seizure disorder History of marijuana use. Chronic and ongoing tobacco dependence, [id number] smoker. Recommendation: Continue present treatment plan including broad-spectrum antibiotics, presently on cefepime, would also add vancomycin. Continue bronchodilators/do not. Continue methylprednisolone. Continue IV fluids. Continue fluconazole. Continue zarxio Overall prognosis is guarded, we'll continue to follow. Time with Patient: Greater than 30
[2019-03-10] MEDS ORDERED: VANCOMYCIN IV PER PHARMACY 1 EACH MISC MISCELLANE PRN (13:02)
[2019-03-10] MEDS: VANCOMYCIN 750 MG in SODIUM CHLORIDE 0.9% 250 ML IVPB SCH ×2 (14:27→22:41)
[2019-03-10] MEDS: MAG HYDROX/AL HYDROX/SIMETH 30 ML, LIDOCAINE VISCOUS 30 ML, diphenhydrAMINE ELIXIR 75 M... PO SCH ×15 (14:27→21:01)
[2019-03-10] MEDS: ALPRAZolam 0.25 MG TAB PO PRN ×2 (15:08→19:44)
[2019-03-10 17:01] LABS: Glucose,Whole Blood 178 mg/dL (75-99)
--- NOTE | 2019-03-10 18:08 | P.CONS ---
History of Present Illness - Reason for Consult Consult date: 03/10/19 SCLC, pancytopenia Requesting physician: Andrea Michel - Chief Complaint severe oral/throat soreness - History of Present Illness Mrs. Jones is a very pleasant 63-year-old female patient of Dr. Garcia who presented to [facility] in December 2018 with complaints of central chest pain radiating to the right chest and axilla. Chest x-ray and CT scan revealed masslike infiltrate extending to the right pleura with mediastinal lymphadenopathy. Bronchoscopy on 01/02/2019 with Goss needle biopsy of mediastinal lymph nodes revealed poorly differentiated small cell carcinoma. Patient was seen with recommendations given for combination of all therapy and immunotherapy patient is status post her first cycle of treatment, completed on 02/27, with GCSF given. Patient states to me that she became "delirious" over the last 48 hours, severe neck pain, throat pain, inability to swallow, she could not take her medications, she was unable to stay hydrated. She denied any fevers, nausea, vomiting, new or unusual chest pain, abdominal pain or cramping, acute changes in bowel or bladder habits, bleeding, swelling or rash. Review of Systems 14 point review of systems is negative except as stated in HPI Past Medical History Past Medical History: Asthma, Cancer, COPD, GERD/Reflux, Osteoarthritis (OA), Skin Disorder Additional Past Medical History / Comment(s): Metastatic small cell lung cancer, psoriasis, COPD with a baseline FEV1 of 51% of predicted, chronic smoker, chronic marijuana user, history of seizures disorder History of Any Multi-Drug Resistant Organisms: None Reported Past Surgical History: Breast Surgery, Ear Surgery, Hysterectomy, Tonsillectomy Additional Past Surgical History / Comment(s): ryan breast lumpectomy ("d/t crystallization"), oral surgery, surgery on rt ear after injury. Bronchoscopy 01/02/19. mediport right side chest Past Anesthesia/Blood Transfusion Reactions: Family History of Problems w/ Anesthesia Additional Past Anesthesia/Blood Transfusion Reaction / Comm: "dad on operative table-he had sepsis from blood clot in his leg" Past Psychological History: Anxiety, Depression Smoking Status: Current some day smoker Past Alcohol Use History: Daily Additional Past Alcohol Use History / Comment(s): Smoking down to 1-2 cigarettes daily, has smoked since age 13, 1 ppd Past Drug Use History: None Reported Additional Drug Use History / Comment(s): occ marijuana use - Past Family History Father Family Medical History: Deep Vein Thrombosis (DVT) Additional Family Medical History / Comment(s): "Gangrene in leg, on the table," possible DVT Medications and Allergies Home Medications Medication Instructions Recorded Confirmed Type Albuterol Inhaler [Ventolin Hfa 2 puff INHALATION RT-Q6H PRN 12/31/18 03/09/19 History Inhaler] Tiotropium [place] [Spiriva] 1 cap INHALATION RT-DAILY 01/16/19 03/09/19 History Hydrocodone/Acetaminophen [[place] 1 tab PO Q6H PRN 02/14/19 03/09/19 History 10-325] Melatonin 3 mg PO HS PRN 02/14/19 03/09/19 History Vitamin C/Biotin [Hair, Skin and 1 tab PO DAILY 02/14/19 03/09/19 History Nails] Albuterol Nebulized [Ventolin 2.5 mg INHALATION TID 30 Days #90 02/17/19 03/09/19 Rx Nebulized] nebu Lidocaine-Prilocaine Cream [[place] 1 applic TOPICAL DAILY 03/09/19 03/09/19 History Cream 2.5%/2.5%] Morphine Sulfate [Morphine Sulfate 15 mg PO BID 03/09/19 03/09/19 History ER] Zolpidem [Ambien] 5 mg PO HS PRN 03/09/19 03/09/19 History Allergies Allergy/AdvReac Type Severity Reaction Status Date / Time coconut Allergy gets dizzy Verified 03/09/19 15:16 and had a seizure mushroom Allergy SOB, Verified 03/09/19 15:16 tongue swelling Physical Exam Vitals: Vital Signs Temp Pulse Pulse Resp BP BP Pulse Ox 03/10/19 08:36 97 03/10/19 08:28 96 03/10/19 05:00 97.5 F L 52 L 18 101/54 97 03/10/19 03:31 104 H 03/10/19 03:21 100 03/10/19 00:27 987.3 F H 97 18 114/66 03/10/19 00:00 111 H 18 03/09/19 23:08 102 H 03/09/19 23:01 103 H 03/09/19 22:35 98.5 F 97 18 119/57 92 L 12/01/19 22:05 97.6 F 115 H 18 97/63 90 L 03/09/19 21:55 98.6 F 121 H 18 97/63 90 L 03/09/19 21:00 98.5 F 111 H 18 126/70 96 03/09/19 16:23 98.3 F 111 H 20 107/70 94 L 03/09/19 15:00 98.7 F 110 H 20 109/65 92 L 03/09/19 12:52 91 18 113/66 98 03/09/19 12:08 20 03/09/19 11:57 100.4 F H 89 20 99/45 94 L Intake and Output 03/09/19 03/10/19 03/10/19 22:59 06:59 14:59 Intake Total 1540 1000 Balance 1540 1000 Intake: Intake, IV Titration 800 450 Amount Cefepime 2 gm In Sodium 100 Chloride 0.9% 100 ml @ 200 mls/hr IVPB Q8HR [facility] Rx#:[id number] Fluconazole in NaCl,Iso- 50 Osm 100 mg In Saline 1 50ml.bag @ 50 mls/hr IVPB DAILY@2000 [facility] Rx#: [id number] Sodium Chloride 0.9% 1, 200 000 ml @ 100 mls/hr IV . Q10H [facility] Rx#:[id number] Sodium Chloride 0.9% 1, 450 450 000 ml @ 75 mls/hr IV . [id number] [facility] Rx#:[id number] Oral 420 240 Blood Product 320 310 Rc As-1 Unit 0 310 [id number] Other: # Voids 2 1 # Bowel Movements 1 - Constitutional General appearance: cooperative, severe distress, thin - EENT Eyes: anicteric sclerae, EOMI, poor dentition ENT: hearing grossly normal, normal oropharynx, pharyngeal erythema - Neck Neck: no lymphadenopathy - Respiratory Respiratory: bilateral: CTA, diminished - Cardiovascular Rhythm: regular Heart sounds: normal: S1, S2 Abnormal Heart Sounds: no systolic murmur, no diastolic murmur, no rub, no S3 Gallop, no S4 Gallop, no click, no other leg Peripheral Edema: bilateral: None - Gastrointestinal General gastrointestinal: no absent bowel sounds, no decreased bowel sounds, no distended, no hepatomegaly, no hyperactive bowel sounds, normal bowel sounds, no organomegaly, no rigid, no scaphoid, soft, no splenomegaly, no tenderness, no umbilical hernia, no ventral hernia - Integumentary Integumentary: normal - Neurologic Neurologic: CNII-XII intact - Musculoskeletal Musculoskeletal: strength equal bilaterally - Psychiatric Psychiatric: A&O x's 3, appropriate affect, intact judgment & insight Results CBC & Chem 7: 03/10/19 07:08 03/10/19 07:08 Labs: Abnormal Lab Results - Last 24 Hours (Table) 03/09/19 03/09/19 03/09/19 Range/Units 12:35 12:35 12:35 WBC 0.4 L* (3.8-10.6) k/uL RBC 2.22 L (3.80-5.40) m/uL Hgb 7.3 L D (11.4-16.0) gm/dL Hct 20.4 L (34.0-46.0) % Plt Count 43 L D (150-450) k/uL Sodium 134 L (137-145) mmol/L Chloride (98-107) mmol/L Carbon Dioxide (22-30) mmol/L Glucose 101 H (74-99) mg/dL POC Glucose (mg/dL) (75-99) mg/dL Plasma Lactic Acid Hao <0.5 L (0.7-2.0) mmol/L Calcium 8.0 L (8.4-10.2) mg/dL Total Protein 5.0 L (6.3-8.2) g/dL Albumin 2.7 L (3.5-5.0) g/dL Crossmatch 03/09/19 03/09/19 03/10/19 Range/Units 12:35 20:12 06:58 WBC (3.8-10.6) k/uL RBC (3.80-5.40) m/uL Hgb (11.4-16.0) gm/dL Hct (34.0-46.0) % Plt Count (150-450) k/uL Sodium (137-145) mmol/L Chloride (98-107) mmol/L Carbon Dioxide (22-30) mmol/L Glucose (74-99) mg/dL POC Glucose (mg/dL) 114 H 177 H (75-99) mg/dL Plasma Lactic Acid Hao (0.7-2.0) mmol/L Calcium (8.4-10.2) mg/dL Total Protein (6.3-8.2) g/dL Albumin (3.5-5.0) g/dL Crossmatch See Detail 03/10/19 03/10/19 Range/Units 07:08 07:08 WBC 0.8 L* (3.8-10.6) k/uL RBC 2.91 L (3.80-5.40) m/uL Hgb 9.5 L D (11.4-16.0) gm/dL Hct 27.7 L (34.0-46.0) % Plt Count 47 L (150-450) k/uL Sodium (137-145) mmol/L Chloride 111 H (98-107) mmol/L Carbon Dioxide 21 L (22-30) mmol/L Glucose 145 H (74-99) mg/dL POC Glucose (mg/dL) (75-99) mg/dL Plasma Lactic Acid Hao (0.7-2.0) mmol/L Calcium 8.2 L (8.4-10.2) mg/dL Total Protein (6.3-8.2) g/dL Albumin (3.5-5.0) g/dL Crossmatch Assessment and Plan (1) Febrile neutropenia Narrative/Plan: Pancultures have been ordered. Patient is on empiric antibiotics. Patient did receive G-CSF post treatment. Current Visit: Yes Status: Acute Priority: High Code(s): D70.9 - NEUTROPENIA, UNSPECIFIED; R50.81 - FEVER PRESENTING WITH CONDITIONS CLASSIFIED ELSEWHERE SNOMED Code(s): 598290672 (2) Radiation-induced esophagitis Narrative/Plan: Patient completed radiation almost 3 weeks ago. There is the possibility of this being a possible radiation recall but, it seems more in the upper part of the throat patient is complaining of the pain. Try Cool solution with the addition of steroids, Chloraseptic and Carafate ordered. We will see how patient response to these multiple methods of treatment. Current Visit: Yes Status: Acute Priority: High Code(s): K20.8 - OTHER ESOPHAGITIS SNOMED Code(s): 664354671 (3) Pancytopenia Narrative/Plan: Hemoglobin 9.5, no acute intervention. Platelet count 47,000, no aspirin, NSAIDs or anticoagulation. Use SCDs for DVT prophylaxis WBC is 0.8 today. She received G-CSF greater than 10 days ago, continue short acting G-CSF at this time. Current Visit: Yes Status: Acute Priority: Medium Code(s): D61.818 - OTHER PANCYTOPENIA SNOMED Code(s): 491384063 (4) Small cell lung cancer Narrative/Plan: Patient is status post her first cycle of 4 planned cycles of chemotherapy with immunotherapy. Plan is for immunotherapy maintenance treatment post combination therapy. I anticipate the patient is going to require a dose reduction of chemotherapy due to severely suppressed white count after 1 cycle. Information will be passed to Primary Onc for planning. Current Visit: No Status: Acute Priority: High Code(s): C34.90 - MALIGNANT NEOPLASM OF UNSP PART OF UNSP BRONCHUS OR LUNG SNOMED Code(s): 893814133
[2019-03-10 20:33] LABS: Glucose,Whole Blood 228 mg/dL (75-99)
[2019-03-10] MEDS: NICOTINE 14MG/24HR PATCH TRANSDERM SCH (20:59)
[2019-03-10] MEDS: FLUCONAZOLE IN NACL,ISO-OSM 100 MG in SALINE 1 50ML.BAG IVPB SCH (20:59)
[2019-03-10] MEDS: ZOLPIDEM 5 MG TAB PO PRN (22:41)
[2019-03-10] MEDS: FILGRASTIM-SNDZ 480 MCG/0.8 ML SYRINGE SQ SCH (22:54)
--- NOTE | 2019-03-11 00:08 | PN ---
PROGRESS NOTE DATE OF SERVICE: 03/10/2019 This 63-year-old woman who was admitted with shortness of breath, possible COPD, acute exacerbation, also had neutropenic fever. Patient is on antibiotics. Patient is also complaining of dysphagia. The patient is on Sid's Solution as well and Diflucan empirically as well. Past medical history reviewed. REVIEW OF SYSTEMS: CARDIOVASCULAR SYSTEM: As mentioned earlier. RESPIRATORY SYSTEM: As mentioned earlier. GI: As mentioned earlier. : No dysuria or retention. NERVOUS SYSTEM: No numbness, weakness. CURRENT MEDICATIONS: Reviewed. They include: 1. [place] 10 mg p.r.n. 2. DuoNeb q.i.d. and p.r.n. 3. Xanax 0.25 t.i.d. 4. Cefepime 2 grams IV q.i.d. 5. Colace 100 mg. 6. Zarxio 480 subcutaneously daily. 7. Dilaudid. 8. NovoLog. 9. Melatonin. 10.MS Contin. 11.Multivitamins. 12.Habitrol 14 daily. 13.Carafate. 14.Vancomycin. PHYSICAL EXAMINATION: Patient is alert, oriented x3. Pulse is 88, blood pressure 108/66, respirations 18, temperature 97.6, pulse ox 96% on 2 L. HEENT: Conjunctivae normal. Oral mucosa moist. NECK: No jugular venous distention. CARDIOVASCULAR SYSTEM: S1, S2 muffled. RESPIRATORY SYSTEM: Breath sounds diminished at the bases. A few scattered rhonchi and crackles. ABDOMEN: Soft, non-tender. LEGS: No edema. No swelling. NERVOUS SYSTEM: No focal deficit. LABS: WBC 0.8, hemoglobin is 9.5 and platelets are 447. ASSESSMENT: 1. Shortness of breath; possible chronic obstructive pulmonary disease, acute exacerbation. 2. Neutropenic fever possibly. 3. Pancytopenia secondary to malignancy. 4. Dysphagia; possibly oral candidiasis plus esophageal candidiasis. 5. [id number] lung cancer with metastases to the brain. 6. Hyponatremia. 7. Generalized gait dysfunction. 8. Severe protein-calorie malnutrition with body mass index of 15. 9. History of asthma, chronic obstructive pulmonary disease. 10.History of degenerative joint disease. 11.History of continued ongoing nicotine dependence. 12.History of tetrahydrocannabinol. 13.Seizure disorder. 14.History of breast surgery. 15.History of tonsillectomy. 16.History of lumpectomy. 17.History of depression, anxiety. RECOMMENDATIONS AND DISCUSSION: I recommend to continue current medications, continue with the monitoring, symptomatic treatment. Continue with the bronchodilators. Continue with antibiotics, antifungals. Otherwise, I would recommend also gastroenterology consultation for possible endoscopes. Repeat labs. Follow closely with multiple consultants. Guarded prognosis because of the multiple complex medical issues. Patient also has significant anxiety symptoms. We will continue to monitor. Further recommendations to follow. MMODL / IJN: [id number] / MTDD
[2019-03-11] MEDS: IPRATROPIUM-ALBUTEROL 3 ML NEB INHALATION SCH ×6 (00:11→22:06)
[2019-03-11] MEDS: CEFEPIME 2 GM in SODIUM CHLORIDE 0.9% 100 ML IVPB SCH ×3 (00:12→15:54)
[2019-03-11] MEDS: methylPREDNISolone SOD SUCCI 125 MG/2 ML VIAL IV SCH ×5 (00:13→23:18)
[2019-03-11] MEDS: ALPRAZolam 0.25 MG TAB PO PRN ×2 (04:32→17:00)
[2019-03-11] MEDS: HYDROcodone/APAP 10-325MG 1 EACH TAB PO PRN ×2 (04:32→19:57)
[2019-03-11] MEDS: MAG HYDROX/AL HYDROX/SIMETH 30 ML, LIDOCAINE VISCOUS 30 ML, diphenhydrAMINE ELIXIR 75 M... PO SCH ×20 (05:18→23:17)
[2019-03-11 07:12] LABS: Glucose,Whole Blood 169 mg/dL (75-99)
[2019-03-11 09:03] LABS: African American GFR (CKD) >90 (>60 ml/min/1.73 sqM); Anion Gap 7 mmol/L; Blood Urea Nitrogen 11 mg/dL (7-17); Calcium 8.1 mg/dL (8.4-10.2); Carbon Dioxide 21 mmol/L (22-30); Chloride 112 mmol/L (98-107); Glucose 158 mg/dL (74-99); Non-African American GFR(CKD) >90 (>60 ml/min/1.73 sqM); Potassium 3.9 mmol/L (3.5-5.1); Sodium 140 mmol/L (137-145)
[2019-03-11] MEDS: SUCRALFATE 1 GM TAB PO SCH ×2 (09:17→17:40)
[2019-03-11] MEDS: LIDOCAINE-PRILOCAINE 2.5-2.5% CREAM 5 GM TUBE TOPICAL SCH (09:17)
[2019-03-11] MEDS: NICOTINE 14MG/24HR PATCH TRANSDERM SCH (09:17)
[2019-03-11] MEDS: DOCUSATE 100 MG CAP PO SCH ×2 (09:17→19:52)
[2019-03-11] MEDS: MORPHINE SULFATE ER 15 MG TABLET PO SCH ×2 (09:17→21:12)
[2019-03-11] MEDS: MULTIVITAMINS, THERA 1 EACH TAB PO SCH (09:17)
[2019-03-11] MEDS: NON FORMULARY DRUG (Vitamin C/Biotin [Hair, Skin And Nails] 1 TAB) PO SCH (09:20)
[2019-03-11 09:24] LABS: HCT 24.9 % (34.0-46.0); HGB 8.3 gm/dL (11.4-16.0); MCH 31.8 pg (25.0-35.0); MCHC 33.5 g/dL (31.0-37.0); Mean Platelet Volume 7.6; RBC 2.62 m/uL (3.80-5.40); RDW 13.9 % (11.5-15.5); WBC 1.7 k/uL (3.8-10.6)
[2019-03-11] MEDS: INSULIN ASPART (NovoLOG) 100 UNIT/ML VIAL SQ SCH ×4 (09:26→19:51)
[2019-03-11 09:41] LABS: Platelet Count 50 k/uL (150-450)
--- NOTE | 2019-03-11 10:42 | P.PN ---
Subjective Progress Note Date: 03/11/19 Principal diagnosis: Shortness of breath, confusion In follow-up today patient is sitting up in bed, she is frustrated with trying to contact her bank regarding a balance. For several minutes I attempt to assist patient in this process, she did not exhibit any difficulty in swal lowing, when questioned about how her sore throat was doing, patient took a drink of water, winced, and then stated that was a little bit better. Patient denies fevers, vomiting, she had a bowel movement last night, denies dysuria or bleeding. Objective - Vital Signs Vital signs: Vital Signs Temp 96.6 F L 03/11/19 05:00 Pulse 117 H 03/11/19 05:00 Resp 28 H 03/11/19 05:00 BP 146/88 03/11/19 05:00 Pulse Ox 93 L 03/11/19 05:00 Intake & Output 03/10/19 03/11/19 03/11/19 18:59 06:59 18:59 Intake Total 1650 2560 Balance 1650 2560 Weight 43.091 kg Intake: Intake, IV Titration 1000 1550 Amount Cefepime 2 gm In Sodium 100 Chloride 0.9% 100 ml @ 200 mls/hr IVPB Q8HR [facility] Rx#:[id number] Fluconazole in NaCl,Iso- 50 Osm 100 mg In Saline 1 50ml.bag @ 50 mls/hr IVPB DAILY@2000 [facility] Rx#: [id number] Sodium Chloride 0.9% 1, 750 900 000 ml @ 75 mls/hr IV . [id number] [facility] Rx#:[id number] Vancomycin 750 mg In 250 500 Sodium Chloride 0.9% 250 ml @ 125 mls/hr IVPB Q12HR [facility] Rx#:[id number] Oral 650 1010 Other: Voiding Method Toilet Toilet # Voids 3 1 - Constitutional General appearance: Present: no acute distress, thin - EENT Eyes: Present: anicteric sclerae, EOMI ENT: Present: normal oropharynx - Respiratory Respiratory: bilateral: rales - Cardiovascular Rhythm: regular Heart sounds: normal: S1, S2 - Peripheral edema leg Peripheral Edema: bilateral: None - Gastrointestinal General gastrointestinal: Present: normal bowel sounds, soft - Integumentary Integumentary: Present: pale - Neurologic Neurologic: Present: CNII-XII intact - Musculoskeletal Musculoskeletal: Present: strength equal bilaterally - Psychiatric Psychiatric: Present: A&O x's 3 - Labs CBC & Chem 7: 03/11/19 06:00 03/11/19 06:00 Labs: Abnormal Lab Results - Last 24 Hours (Table) 03/10/19 03/10/19 03/10/19 Range/Units 11:12 17:00 20:32 WBC (3.8-10.6) k/uL RBC (3.80-5.40) m/uL Hgb (11.4-16.0) gm/dL Hct (34.0-46.0) % Chloride (98-107) mmol/L Carbon Dioxide (22-30) mmol/L Glucose (74-99) mg/dL POC Glucose (mg/dL) 192 H 178 H 228 H (75-99) mg/dL Calcium (8.4-10.2) mg/dL 03/11/19 03/11/19 03/11/19 Range/Units 06:00 06:00 07:05 WBC 1.7 L (3.8-10.6) k/uL RBC 2.62 L (3.80-5.40) m/uL Hgb 8.3 L (11.4-16.0) gm/dL Hct 24.9 L (34.0-46.0) % Chloride 112 H (98-107) mmol/L Carbon Dioxide 21 L (22-30) mmol/L Glucose 158 H (74-99) mg/dL POC Glucose (mg/dL) 169 H (75-99) mg/dL Calcium 8.1 L (8.4-10.2) mg/dL Microbiology - Last 24 Hours (Table) 03/09/19 12:35 Blood Culture - Preliminary Blood No Growth after 24 hours Assessment and Plan (1) Febrile neutropenia Narrative/Plan: Pancultures have been ordered. Patient is on empiric antibiotics. Patient did receive G-CSF post treatment. She continues on rapid acting CGSF. WBC 1.7 today Current Visit: Yes Status: Acute Priority: High Code(s): D70.9 - NEUTROPENIA, UNSPECIFIED; R50.81 - FEVER PRESENTING WITH CONDITIONS CLASSIFIED ELSEWHERE SNOMED Code(s): 384008208 (2) Radiation-induced esophagitis Narrative/Plan: Patient completed radiation almost 3 weeks ago. There is the possibility of this being a possible radiation recall but, it seems more in the upper part of the throat patient is complaining of the pain. Cool solution with the addition of steroids, Chloraseptic and Carafate ordered. Patient seems to be doing much better today. A new treatments as ordered Current Visit: Yes Status: Acute Priority: High Code(s): K20.8 - OTHER ESOPHAGITIS SNOMED Code(s): 166188545 (3) Pancytopenia Narrative/Plan: Hemoglobin 8.3, no acute intervention. Platelet count pendiing. If < 50K, no aspirin, NSAIDs or anticoagulation. Use SCDs for DVT prophylaxis WBC is 1.7 today. She received G-CSF greater than 10 days ago, continue short acting G-CSF at this time. Current Visit: Yes Status: Acute Priority: Medium Code(s): D61.818 - OTHER PANCYTOPENIA SNOMED Code(s): 795382639 (4) Small cell lung cancer Narrative/Plan: Patient is status post her first cycle of 4 planned cycles of chemotherapy with immunotherapy. Plan is for immunotherapy maintenance treatment post combination therapy. I anticipate the patient is going to require a dose reduction of chemotherapy due to severely suppressed counts after 1 cycle. Information will be passed to Primary Onc for planning. Current Visit: No Status: Acute Priority: High Code(s): C34.90 - MALIGNANT NEOPLASM OF UNSP PART OF UNSP BRONCHUS OR LUNG SNOMED Code(s): 238236476
[2019-03-11 11:34] LABS: Glucose,Whole Blood 157 mg/dL (75-99)
[2019-03-11 11:49] LABS: Band Neutrophils % 5 %; Lymphocytes # (M) 0.17 k/uL (1.0-4.8); Metamyelocytes # (M) 0.02 k/uL (0); Metamyelocytes % 1 %; Monocytes # (M) 0.32 k/uL (0-1.0); Myelocytes # (M) 0.02 k/uL (0); Myelocytes % 1 %; Neutrophils % (M) 66 %; Nucleated Red Blood Cells 0 /100 WBC (0-0); Total Cells Counted 200
[2019-03-11 11:50] LABS: Poikilocytosis (M) Present
--- NOTE | 2019-03-11 12:40 | P.PN ---
Subjective Progress Note Date: 03/11/19 Principal diagnosis: Neutropenic fever This is a 63-year-old female with multiple medical problems including metastatic small cell lung cancer, COPD, GERD, degenerative joint disease, patient's small cell lung cancer was metastatic to the brain, patient was brought in with 5 days history of increased shortness of breath, cough, some difficulty swallowing. Patient has received chemoradiation in the past, and upon admission she was noted to have pancytopenia. WBC count was 0.4 hemoglobin 7.3 platelets of 43,000. Chest x-ray showed no evidence of pneumonia, there was evidence of scattered parenchymal changes, but no clear-cut evidence of pneumonia or malignancy. Considering the patient's symptoms and considering her pancytopenia, patient was admitted and this consult was initiated. During my evaluation, the patient was mostly complaining of difficulty swallowing. Describes the swallowing as painful to swallow. Patient denies any fever no chills no hemoptysis no chest pain no nausea no vomiting no abdominal pain no melena no hematemesis is no dysuria frequency no urgency looking back at her previous history, the patient had previous MRI of the brain showing numerous foci of pathological enhancement consistent with INVESTIGATOR VICE metastasis. PET scan showed abnormal uptake in the superior lateral and superior medial right apex of the lung. There was also multiple right hilar and pretracheal subcarinal lymphadenopathy suspicious of metastasis. There was also at least some hepatic involvement. And some lesions involving the vertebral body and cervical spine as well as thoracic and lumbar spine. Patient was reevaluated today on 03/11/2019, she is basically about the same, continues to have some difficulty swallowing, describes generalized weakness, and shortness of breath. No fever no chills no hemoptysis, no chest pain. Patient is on 2 L nasal cannula, O2 saturation is 93%, blood pressure is 146/88. Her WBC count today is up to 1.7 hemoglobin is 8.3 platelets are up to 50,000. Blood cultures are negative so far Objective - Vital Signs Vital signs: Vital Signs Temp 96.6 F L 03/11/19 05:00 Pulse 105 H 03/11/19 12:11 Resp 28 H 03/11/19 05:00 BP 146/88 03/11/19 05:00 Pulse Ox 93 L 03/11/19 05:00 Intake & Output 03/10/19 03/11/19 03/11/19 18:59 06:59 18:59 Intake Total 1650 2560 Balance 1650 2560 Weight 43.091 kg Intake: Intake, IV Titration 1000 1550 Amount Cefepime 2 gm In Sodium 100 Chloride 0.9% 100 ml @ 200 mls/hr IVPB Q8HR [facility] Rx#:[id number] Fluconazole in NaCl,Iso- 50 Osm 100 mg In Saline 1 50ml.bag @ 50 mls/hr IVPB DAILY@2000 [facility] Rx#: [id number] Sodium Chloride 0.9% 1, 750 900 000 ml @ 75 mls/hr IV . [id number] [facility] Rx#:[id number] Vancomycin 750 mg In 250 500 Sodium Chloride 0.9% 250 ml @ 125 mls/hr IVPB Q12HR [facility] Rx#:[id number] Oral 650 1010 Other: Voiding Method Toilet Toilet # Voids 3 1 - Exam GENERAL EXAM: Alert, pleasant 63-year-old female patient, comfortable in no apparent distress. On 2 L nasal cannula. HEAD: Normocephalic. Atraumatic. EYES: PERRLA, EOMI, no icterus. NOSE: Clear with pink turbinates. THROAT: Evidence of thrush noted in the oropharynx. NECK: No masses, no JVD. CHEST: No chest wall deformity. LUNGS symmetrical chest expansion, diminished breath sounds at the bases no rhonchi no wheezes. CVS: S1 and S2 normal with no audible murmur, regular rhythm. ABDOMEN: No hepatosplenomegaly, normal bowel sounds, no guarding or rigidity. SPINE: No scoliosis or deformity SKIN: No rashes CENTRAL NERVOUS SYSTEM: No focal deficits, tone is normal in all 4 extremities. EXTREMITIES: There is no peripheral edema. No clubbing, no cyanosis. Peripheral pulses are intact. - Labs CBC & Chem 7: 03/11/19 06:00 03/11/19 06:00 Labs: Abnormal Lab Results - Last 24 Hours (Table) 03/10/19 03/10/19 03/11/19 Range/Units 17:00 20:32 06:00 WBC 1.7 L (3.8-10.6) k/uL RBC 2.62 L (3.80-5.40) m/uL Hgb 8.3 L (11.4-16.0) gm/dL Hct 24.9 L (34.0-46.0) % Plt Count 50 L (150-450) k/uL Neutrophils # (Manual) 1.20 L (1.3-7.7) k/uL Lymphocytes # (Manual) 0.17 L (1.0-4.8) k/uL Metamyelocytes # (Man) 0.02 H (0) k/uL Myelocytes # (Manual) 0.02 H (0) k/uL Chloride (98-107) mmol/L Carbon Dioxide (22-30) mmol/L Glucose (74-99) mg/dL POC Glucose (mg/dL) 178 H 228 H (75-99) mg/dL Calcium (8.4-10.2) mg/dL 03/11/19 03/11/19 03/11/19 Range/Units 06:00 07:05 11:28 WBC (3.8-10.6) k/uL RBC (3.80-5.40) m/uL Hgb (11.4-16.0) gm/dL Hct (34.0-46.0) % Plt Count (150-450) k/uL Neutrophils # (Manual) (1.3-7.7) k/uL Lymphocytes # (Manual) (1.0-4.8) k/uL Metamyelocytes # (Man) (0) k/uL Myelocytes # (Manual) (0) k/uL Chloride 112 H (98-107) mmol/L Carbon Dioxide 21 L (22-30) mmol/L Glucose 158 H (74-99) mg/dL POC Glucose (mg/dL) 169 H 157 H (75-99) mg/dL Calcium 8.1 L (8.4-10.2) mg/dL Microbiology - Last 24 Hours (Table) 03/09/19 12:35 Blood Culture - Preliminary Blood No Growth after 24 hours Assessment and Plan Assessment: Impression: Neutropenic fever. Acute pancytopenia related to chemotherapy. Acute exacerbation of COPD, known history of COPD, FEV1 is 51%. History of small cell lung cancer with multiple areas of metastasis including INVESTIGATOR VICE metastasis. Difficulty swallowing most likely secondary to radiation esophagitis. History of seizure disorder History of marijuana use. Chronic and ongoing tobacco dependence, [id number] smoker. Recommendation: Continue present treatment plan including broad-spectrum antibiotics, cefepime and vancomycin. Continue bronchodilators. Continue methylprednisolone. Continue IV fluids. Continue fluconazole. Continue zarxio Long-term prognosis is extremely poor and guarded. Time with Patient: Less than 30
[2019-03-11] MEDS: VANCOMYCIN 750 MG in SODIUM CHLORIDE 0.9% 250 ML IVPB SCH ×2 (13:36→23:16)
[2019-03-11 17:17] LABS: Glucose,Whole Blood 212 mg/dL (75-99)
[2019-03-11] MEDS: SODIUM CHLORIDE 0.9% 1,000 ML IV SCH (17:33)
--- NOTE | 2019-03-11 17:44 | PN ---
PROGRESS NOTE DATE OF SERVICE: 04/07/2019 This 63-year-old woman who was admitted with COPD, acute exacerbation, also had neutropenic fever. The patient also had pancytopenia. Patient also had dysphagia. Patient is being closely monitored. Patient also had extreme multiple consultants are following the patient closely. WBC 1.6, hemoglobin is 8.3, platelets 50, indicating pancytopenia. Past medical history reviewed. REVIEW OF SYSTEMS: CARDIOVASCULAR SYSTEM: No angina, palpitations. RESPIRATORY SYSTEM: As mentioned earlier. GI: As mentioned earlier. : No dysuria or retention. NERVOUS SYSTEM: No numbness, weakness. CURRENT MEDICATIONS: Reviewed. They include: 1. Hydrocodone p.r.n. 2. Cool solution. 3. Albuterol p.r.n. 4. DuoNeb q.i.d. and p.r.n. 5. Xanax 0.25 t.i.d. 6. Cefepime 2 grams IV q.8. 7. Colace. 8. Zarxio 480 mg subcutaneously at bedtime. 9. Fluconazole. 10.Dilaudid. 11.Melatonin. 12.Solu-Medrol 60 IV q.6. 13.MS Contin. 14.Habitrol. 15.Protonix. 16.Carafate. 17.Vancomycin. Doses are reviewed. PHYSICAL EXAMINATION: Patient is alert, oriented x3. Pulse 105, blood pressure 130/93, respiration 18, temperature 96.8, pulse ox 98% on 2 L. HEENT: Conjunctivae normal. NECK: No jugular venous distention. CARDIOVASCULAR SYSTEM: S1, S2 muffled. RESPIRATORY SYSTEM: Breath sounds diminished at the bases. Scattered rhonchi and crackles. Expiratory wheezing also present. ABDOMEN: Soft, non-tender. LEGS: No edema. No swelling. NERVOUS SYSTEM: No focal deficit. LABS: WBC 1.6, hemoglobin 8.3, sodium 140, potassium 3.9. ASSESSMENT: 1. Shortness of breath, possibly chronic obstructive pulmonary disease, acute exacerbation, with acute purulent tracheobronchitis. 2. Neutropenic fever possibly. 3. Pancytopenia secondary to malignancy. 4. Dysphagia, possibly oral candidiasis or esophageal candidiasis. 5. Dyr-khwcv-qjit lung cancer with metastases to the brain. 6. Hyponatremia. 7. Generalized gait dysfunction. 8. Severe protein-calorie malnutrition with body mass index of 15. 9. History of asthma, chronic obstructive pulmonary disease. 10.History of degenerative joint disease. 11.Continued ongoing nicotine dependence. 12.History of tetrahydrocannabinol. 13.Seizure disorder. 14.History of breast surgery. 15.History of tonsillectomy. 16.History of lumpectomy. 17.History of depression, anxiety. RECOMMENDATIONS AND DISCUSSION: I recommend to continue current medications, continue with the monitoring, symptomatic treatment. Continue with bronchodilators. Continue with steroids. Continue with antibiotics. The most recent brain MRI showed multiple metastases. I would also recommend a CT of the brain also for followup. We will continue to monitor. Guarded prognosis because of multiple complex medical issues. Further recommendations to follow. See orders for further details. Continue with steroids. Monitor closely. MMODL / IJN: [id number] / MTDD
--- NOTE | 2019-03-11 18:21 | CT ---
EXAMINATION TYPE: CT brain wo con DATE OF EXAM: 03/11/2019 COMPARISON: None HISTORY: Metastatic lung CA CT DLP: 955.8 mGycm Automated exposure control for dose reduction was used. Multiple axial sections were obtained of the brain without contrast. FINDINGS: There is mild atrophy. There is no mass effect nor midline shift. There is no sign of intracranial he morrhage. I see no evidence of cerebral edema. Calvarium is intact. There is minimal mucosal thickeni ng in the ethmoid maxillary and sphenoid sinuses. IMPRESSION: Mild cerebral atrophy. No acute intracranial abnormality. Sinusitis.
[2019-03-11] MEDS ORDERED: LIDOCAINE-PRILOCAINE 2.5-2.5% CREAM 5 GM TUBE TOPICAL PRN (19:08)
[2019-03-11 19:43] LABS: Glucose,Whole Blood 102 mg/dL (75-99)
--- NOTE | 2019-03-11 21:02 | CONS ---
CONSULTATION DATE OF DICTATION: March 11, 2019. REQUESTING PHYSICIAN: Dr. Slaughter. REASON FOR CONSULTATION: Dysphagia. HISTORY OF PRESENT ILLNESS: The patient is a 63-year-old pleasant white female who was diagnosed with non-small cell lung cancer in December of 2018. She subsequently underwent radiation therapy and presently undergoing chemotherapy. Her last cycle of chemotherapy was February 27, 2019. She was admitted to the hospital because of chest pain and dysphagia as well as altered mental status. She is unable to swallow much in the last 10 days. She states she lost about 20 pounds. She denies any nausea, vomiting. Reports no abdominal pain. She was started on cool solution and the symptoms are somewhat better today. PAST MEDICAL HISTORY: Significant for non-small cell lung CA diagnosed in November of this year. Status post radiation therapy, currently undergoing chemotherapy. She has history of psoriasis and COPD. SOCIAL HISTORY: Chronic smoker. PAST SURGICAL HISTORY: Breast surgery, hysterectomy, tonsillectomy, bilateral breast lumpectomy and bronchoscopy in November of 2018. FAMILY HISTORY: Father had DVT. MEDICATIONS AT HOME: Albuterol, Spiriva, [place], melatonin, albuterol, Ambien, morphine sulfate. ALLERGIES: COCONUT, MUSHROOMS. REVIEW OF SYSTEMS: CARDIOPULMONARY: No chest pain, shortness of breath. Genitourinary: No dysuria or hematuria. MUSCULOSKELETAL unremarkable. SKIN unremarkable. Endocrine unremarkable. Psychiatric: Anxiety and depression. Neurology unremarkable. ENT/vision unremarkable. GI as mentioned above. CONSTITUTIONAL: Weight loss of 20 pounds. No fever, chills, night sweats. PHYSICAL EXAMINATION: She appears comfortable. No apparent distress. VITAL SIGNS: Stable. Blood pressure is 130/93, pulse rate 106, temperature 96.8. HEENT examination unremarkable. Conjunctivae pink. Sclerae anicteric. Oral cavity no lesions. Neck: No JVD or lymph node enlargement. CHEST: Clear to auscultation. HEART: Regular rate and rhythm. ABDOMEN: Soft. Bowel sounds are positive. No organomegaly. EXTREMITIES: No pedal edema. SKIN: No rashes. NEURO: She is alert and oriented x3. No focal deficits. LABS: Done at the time of admission to the hospital: WBC was 0.4, hemoglobin 7.3, platelets 43,000. Today WBC is 1.7, hemoglobin 8.3, and platelets are 50,000. IMPRESSION: 1. Febrile neutropenia for which patient is on broad-spectrum antibiotics and Dr. Haider following the patient closely. 2. Severe dysphagia for the last 1 week duration. The patient diagnosed with metastatic small cell lung carcinoma status post radiation therapy which ended about a month ago and presently undergoing immunotherapy. She is presently on Fluticasone and cool solution for possible Elizabeth esophagitis. She feels somewhat better today. Most likely we are dealing with infectious esophagitis causing her symptoms. Possibility of radiation-induced esophagitis also needs to be considered at this time. 3. Pancytopenia, related to chemotherapy which is gradually improving, presently on filgrastim. 4. Small cell lung carcinoma with metastasis following Dr. Garcia on outpatient basis. RECOMMENDATIONS: 1. Continue with fluconazole as well as Cool solutions. 2. Encouraged clear liquid diet and advance to soft diet. 3. If she continues to remain persistently symptomatic, she may need to have any endoscopic intervention, but presently we will hold off because of the pancytopenia. 4. The plan was discussed with the patient. She is agreeable to it. Thank you for this consultation. MMODL / IJN: [id number] /
[2019-03-11] MEDS: ZOLPIDEM 5 MG TAB PO PRN (21:12)
[2019-03-11] MEDS: FILGRASTIM-SNDZ 480 MCG/0.8 ML SYRINGE SQ SCH (21:13)
[2019-03-11] MEDS: PANTOPRAZOLE 40 MG/10 ML VIAL IVP SCH (21:13)
[2019-03-11] MEDS: FLUCONAZOLE IN NACL,ISO-OSM 100 MG in SALINE 1 50ML.BAG IVPB SCH (21:24)
[2019-03-12] MEDS: IPRATROPIUM-ALBUTEROL 3 ML NEB INHALATION SCH ×6 (00:17→20:57)
[2019-03-12] MEDS: CEFEPIME 2 GM in SODIUM CHLORIDE 0.9% 100 ML IVPB SCH ×3 (01:24→15:37)
[2019-03-12] MEDS: SODIUM CHLORIDE 0.9% 1,000 ML IV SCH ×2 (01:24→15:37)
[2019-03-12] MEDS: methylPREDNISolone SOD SUCCI 125 MG/2 ML VIAL IV SCH ×3 (06:32→19:35)
[2019-03-12] MEDS: MAG HYDROX/AL HYDROX/SIMETH 30 ML, LIDOCAINE VISCOUS 30 ML, diphenhydrAMINE ELIXIR 75 M... PO SCH ×20 (06:33→23:32)
[2019-03-12 06:57] LABS: HGB 8.8 gm/dL (11.4-16.0); MCH 33.2 pg (25.0-35.0); MCHC 35.2 g/dL (31.0-37.0); MCV 94.4 fL (80.0-100.0); Mean Platelet Volume 7.2; RBC 2.65 m/uL (3.80-5.40); RDW 14.3 % (11.5-15.5)
[2019-03-12 07:07] LABS: African American GFR (CKD) >90 (>60 ml/min/1.73 sqM); Anion Gap 6 mmol/L; Blood Urea Nitrogen 13 mg/dL (7-17); Calcium 7.6 mg/dL (8.4-10.2); Carbon Dioxide 22 mmol/L (22-30); Chloride 113 mmol/L (98-107); Glucose 159 mg/dL (74-99); Non-African American GFR(CKD) >90 (>60 ml/min/1.73 sqM); Potassium 3.5 mmol/L (3.5-5.1); Sodium 141 mmol/L (137-145)
[2019-03-12 07:09] LABS: Platelet Count 44 k/uL (150-450)
[2019-03-12 07:15] LABS: Glucose,Whole Blood 188 mg/dL (75-99)
[2019-03-12 07:27] LABS: Band Neutrophils % 11 %; Lymphocytes # (M) 0.62 k/uL (1.0-4.8); Monocytes # (M) 0.66 k/uL (0-1.0); Neutrophils % (M) 61 %; Nucleated Red Blood Cells 3 /100 WBC (0-0); Total Cells Counted 200; WBC 4.4 k/uL (3.8-10.6)
[2019-03-12] MEDS ORDERED: VANCOMYCIN TROUGH DUE 1 EACH MISC MISCELLANE ONE (08:00)
[2019-03-12] MEDS: INSULIN ASPART (NovoLOG) 100 UNIT/ML VIAL SQ SCH ×4 (09:49→21:32)
[2019-03-12] MEDS: PANTOPRAZOLE 40 MG/10 ML VIAL IVP SCH ×2 (09:50→21:33)
[2019-03-12] MEDS: DOCUSATE 100 MG CAP PO SCH ×3 (09:50→22:50)
[2019-03-12] MEDS: MORPHINE SULFATE ER 15 MG TABLET PO SCH ×2 (09:50→21:32)
[2019-03-12] MEDS: MULTIVITAMINS, THERA 1 EACH TAB PO SCH (09:50)
[2019-03-12] MEDS: NICOTINE 14MG/24HR PATCH TRANSDERM SCH (09:50)
[2019-03-12] MEDS: SUCRALFATE 1 GM TAB PO SCH ×2 (09:50→19:28)
[2019-03-12] MEDS: VANCOMYCIN 750 MG in SODIUM CHLORIDE 0.9% 250 ML IVPB SCH ×2 (09:51→22:50)
[2019-03-12] MEDS: NON FORMULARY DRUG (Vitamin C/Biotin [Hair, Skin And Nails] 1 TAB) PO SCH (10:04)
[2019-03-12 12:17] LABS: Glucose,Whole Blood 230 mg/dL (75-99)
[2019-03-12] MEDS: ALPRAZolam 0.25 MG TAB PO PRN ×2 (12:29→22:05)
--- NOTE | 2019-03-12 12:40 | P.PN ---
Subjective Progress Note Date: 03/12/19 Principal diagnosis: Neutropenic fever This is a 63-year-old female with multiple medical problems including metastatic small cell lung cancer, COPD, GERD, degenerative joint disease, patient's small cell lung cancer was metastatic to the brain, patient was brought in with 5 days history of increased shortness of breath, cough, some difficulty swallowing. Patient has received chemoradiation in the past, and upon admission she was noted to have pancytopenia. WBC count was 0.4 hemoglobin 7.3 platelets of 43,000. Chest x-ray showed no evidence of pneumonia, there was evidence of scattered parenchymal changes, but no clear-cut evidence of pneumonia or malignancy. Considering the patient's symptoms and considering her pancytopenia, patient was admitted and this consult was initiated. During my evaluation, the patient was mostly complaining of difficulty swallowing. Describes the swallowing as painful to swallow. 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 PET scan showed abnormal uptake in the superior lateral and superior medial right apex of the lung. There was also multiple right hilar and pretracheal subcarinal lymphadenopathy suspicious of metastasis. There was also at least some hepatic involvement. And some lesions involving the vertebral body and cervical spine as well as thoracic and lumbar spine. Patient was reevaluated today on 03/11/2019, she is basically about the same, continues to have some difficulty swallowing, describes generalized weakness, and shortness of breath. No fever no chills no hemoptysis, no chest pain. Patient is on 2 L nasal cannula, O2 saturation is 93%, blood pressure is 146/88. Her WBC count today is up to 1.7 hemoglobin is 8.3 platelets are up to 50,000. Blood cultures are negative so far Reevaluated today on 03/12/2019, patient is feeling better, denies any fever or chills, continues to have a bit of difficulty swallowing, her labs are significantly improved. Platelets are 44,000. Electrolytes are normal renal profile is normal. Blood cultures remain negative. Objective - Vital Signs Vital signs: Vital Signs Temp 98.1 F 03/12/19 12:32 Pulse 116 H 03/12/19 12:32 Resp 19 03/12/19 12:32 BP 134/80 03/12/19 12:32 Pulse Ox 99 03/12/19 12:32 Intake & Output 03/11/19 03/12/19 03/12/19 18:59 06:59 18:59 Intake Total 1750 855 340 Balance 1750 855 340 Intake: Intake, IV Titration 800 275 Amount Cefepime 2 gm In Sodium 100 Chloride 0.9% 100 ml @ 200 mls/hr IVPB Q8HR RAMÍREZ Rx#:[id number] Fluconazole in NaCl,Iso- 50 Osm 100 mg In Saline 1 50ml.bag @ 50 mls/hr IVPB DAILY@2000 RAMÍREZ Rx#: [id number] Sodium Chloride 0.9% 1, 450 225 000 ml @ 75 mls/hr IV . [id number] RAMÍREZ Rx#:[id number] Vancomycin 750 mg In 250 Sodium Chloride 0.9% 250 ml @ 125 mls/hr IVPB Q12HR RAMÍREZ Rx#:[id number] Oral 950 580 340 Other: Voiding Method Toilet Bedside Commode Bedside Commode # Voids 2 - Exam GENERAL EXAM: Alert, pleasant 63-year-old female patient, comfortable in no apparent distress. On 2 L nasal cannula. HEAD: Normocephalic. Atraumatic. EYES: PERRLA, EOMI, no icterus. NOSE: Clear with pink turbinates. THROAT: Clearing of oropharyngeal thrush noted NECK: No masses, no JVD. CHEST: No chest wall deformity. LUNGS symmetrical chest expansion, diminished breath sounds at the bases no rhonchi no wheezes. CVS: S1 and S2 normal with no audible murmur, regular rhythm. ABDOMEN: No hepatosplenomegaly, normal bowel sounds, no guarding or rigidity. SPINE: No scoliosis or deformity SKIN: No rashes CENTRAL NERVOUS SYSTEM: No focal deficits, tone is normal in all 4 extremities. EXTREMITIES: There is no peripheral edema. No clubbing, no cyanosis. Peripheral pulses are intact. - Labs CBC & Chem 7: 03/12/19 06:30 03/12/19 06:30 Labs: Abnormal Lab Results - Last 24 Hours (Table) 03/11/19 03/11/19 03/12/19 Range/Units 17:05 19:42 06:30 RBC 2.65 L (3.80-5.40) m/uL Hgb 8.8 L (11.4-16.0) gm/dL Hct 25.0 L (34.0-46.0) % Plt Count 44 L (150-450) k/uL Lymphocytes # (Manual) 0.62 L (1.0-4.8) k/uL Nucleated RBCs 3 H (0-0) /100 WBC Chloride (98-107) mmol/L Glucose (74-99) mg/dL POC Glucose (mg/dL) 212 H 102 H (75-99) mg/dL Calcium (8.4-10.2) mg/dL 03/12/19 03/12/19 03/12/19 Range/Units 06:30 07:08 12:12 RBC (3.80-5.40) m/uL Hgb (11.4-16.0) gm/dL Hct (34.0-46.0) % Plt Count (150-450) k/uL Lymphocytes # (Manual) (1.0-4.8) k/uL Nucleated RBCs (0-0) /100 WBC Chloride 113 H (98-107) mmol/L Glucose 159 H (74-99) mg/dL POC Glucose (mg/dL) 188 H 230 H (75-99) mg/dL Calcium 7.6 L (8.4-10.2) mg/dL Microbiology - Last 24 Hours (Table) 03/09/19 12:35 Blood Culture - Preliminary Blood No Growth after 48 hours Assessment and Plan Assessment: Impression: Neutropenic fever. Acute pancytopenia related to chemotherapy. Significantly improved based on the labs today. Acute exacerbation of COPD, known history of COPD, FEV1 is 51%. 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 Difficulty swallowing most likely secondary to radiation esophagitis. History of seizure disorder History of marijuana use. Chronic and ongoing tobacco dependence, [id number] smoker. Recommendation: Continue present treatment plan including broad-spectrum antibiotics, cefepime and vancomycin. Continue bronchodilators. Continue methylprednisolone. Continue IV fluids. Continue fluconazole. Continue zarxio We will sign off on this patient, and we'll see her on when necessary basis. Time with Patient: Less than 30
[2019-03-12 14:03] VITALS: BMI 17.0
[2019-03-12 17:12] LABS: Glucose,Whole Blood 178 mg/dL (75-99)
--- NOTE | 2019-03-12 18:45 | PN ---
PROGRESS NOTE DATE OF DICTATION: 03/12/2019 Patient is a 63-year-old pleasant white female admitted to the hospital with febrile neutropenia. She was diagnosed with metastatic small cell lung carcinoma, status post radiation therapy that ended a month ago but currently undergoing chemotherapy. The last one was 2 weeks ago. She is on broad-spectrum antibiotics as well as filgrastim. She is doing better. She was seen in consultation because of dysphagia. Today she is able to swallow liquids without any problem, but with solids she continues to have dysphagia with a sensation of food getting stuck in her upper sternal area. She looks much better today and patient states that she is feeling better today. PHYSICAL EXAMINATION: Appears comfortable. No apparent distress. VITAL SIGNS: Stable. Blood pressure 134/80, pulse rate 116, temperature 98.1. HEENT examination unremarkable. Conjunctivae pink. Sclerae anicteric. Oral cavity no lesions. NECK: No JVD or lymph node enlargement. CHEST: Clear to auscultation. HEART: Regular rate and rhythm. ABDOMEN: Soft. It was benign. Bowel sounds are positive. EXTREMITIES: No pedal edema. NEUROLOGIC: Awake. Oriented to name, place and time. LABS: Labs from today show WBC 4.4, hemoglobin 8.8, platelets 44,000. IMPRESSION: 1. Febrile neutropenia, resolving, presently on broad-spectrum antibiotics. 2. Pancytopenia, gradually improving. White count today is 4.4. 3. Dysphagia/odynophagia, probably infectious esophagitis. Patient is status post radiation therapy a month ago, but presently on chemotherapy. Most likely dealing with elicia esophagitis. Presently on empiric fluconazole and Cool Solution and her symptoms are gradually improving. Her intake is also improving. 4. Metastatic small-cell lung carcinoma diagnosed in October of this year, undergoing chemotherapy. RECOMMENDATIONS: 1. Encourage the patient to increase her oral intake. 2. Continue with clear liquids and advance to a soft diet. 3. Continue with empiric fluconazole as well as Cool Solution. 4. Continue broad-spectrum antibiotics. 5. Still I do not have any plans for any endoscopic intervention at the present time, but we will keep this as a contingency based on her overall clinical condition. Thank you for this consultation. MMODL / IJN: [id number] /
[2019-03-12] MEDS: methylPREDNISolone SOD SUCCI 40 MG/ML 1 ML VIAL IV SCH (19:34)
--- NOTE | 2019-03-12 20:30 | PN ---
PROGRESS NOTE DATE OF SERVICE: 03/12/2019 This 63-year-old woman who was admitted with shortness of breath and COPD, acute exacerbation, is elva closely monitored. The patient had neutropenic fever, also. No chest pain. No palpitations. No fever. PHYSICAL EXAMINATION: Alert and oriented x3. Pulse is 116, blood pressure 134/80, respiration 19, temperature 98.1, pulse ox 99% on 2 L. HEENT: Conjunctivae normal. NECK: No jugular venous distention. CARDIOVASCULAR SYSTEM: S1, S2 muffled. RESPIRATORY SYSTEM: Breath sounds diminished at the bases. A few scattered rhonchi and crackles. ABDOMEN: Soft, non-tender. LEGS: No edema. No swelling. NERVOUS SYSTEM: No focal deficit. LABS: WBC 4.5, hemoglobin is 8.8. Sodium 140, potassium 3.5. ASSESSMENT: 1. Shortness of breath with possible chronic obstructive pulmonary disease, acute exacerbation, with acute purulent tracheobronchitis. 2. Neutropenic fever possibly. 3. Pancytopenia secondary to malignancy. 4. Dysphagia, possibly oral candidiasis and esophageal candidiasis. 5. Ylb-pjkcj-jodw lung cancer with metastasis to the brain. 6. Hyponatremia. 7. Generalized gait dysfunction. 8. History of protein-calorie malnutrition with a body mass index of 17.1. 9. History of asthma, chronic obstructive pulmonary disease. 10.History of degenerative joint disease. 11.History of continued ongoing nicotine dependence. 12.History of tetrahydrocannabinol. 13.Seizure disorder. 14.History of breast surgery. 15.History of tonsillectomy. 16.History of lumpectomy. 17.History of depression and anxiety. RECOMMENDATIONS AND DISCUSSION: I recommend to continue current medication, continue with the monitoring and symptomatic treatment. Otherwise at this time monitor blood sugars closely. Continue with the antibiotics. Continue the rest of the medications. Continue with the antifungals. We will cut down the steroids. Further recommendations to follow. MMODL / IJN: [id number] /
[2019-03-12 20:39] LABS: Glucose,Whole Blood 218 mg/dL (75-99)
[2019-03-12] MEDS: FILGRASTIM-SNDZ 480 MCG/0.8 ML SYRINGE SQ SCH (21:32)
[2019-03-12] MEDS: FLUCONAZOLE IN NACL,ISO-OSM 100 MG in SALINE 1 50ML.BAG IVPB SCH (21:34)
[2019-03-13] MEDS: IPRATROPIUM-ALBUTEROL 3 ML NEB INHALATION SCH ×6 (00:19→20:45)
[2019-03-13] MEDS: methylPREDNISolone SOD SUCCI 40 MG/ML 1 ML VIAL IV SCH ×3 (00:44→17:07)
[2019-03-13] MEDS: CEFEPIME 2 GM in SODIUM CHLORIDE 0.9% 100 ML IVPB SCH ×3 (02:24→17:07)
[2019-03-13] MEDS: SODIUM CHLORIDE 0.9% 1,000 ML IV SCH ×2 (04:07→17:09)
[2019-03-13] MEDS: MAG HYDROX/AL HYDROX/SIMETH 30 ML, LIDOCAINE VISCOUS 30 ML, diphenhydrAMINE ELIXIR 75 M... PO SCH ×20 (06:04→23:39)
[2019-03-13 06:51] LABS: Glucose,Whole Blood 161 mg/dL (75-99)
[2019-03-13] MEDS: ALPRAZolam 0.25 MG TAB PO PRN (09:23)
[2019-03-13] MEDS: DOCUSATE 100 MG CAP PO SCH ×2 (09:23→21:14)
[2019-03-13] MEDS: NICOTINE 14MG/24HR PATCH TRANSDERM SCH ×2 (09:23→09:26)
[2019-03-13] MEDS: MULTIVITAMINS, THERA 1 EACH TAB PO SCH (09:24)
[2019-03-13] MEDS: SUCRALFATE 1 GM TAB PO SCH ×2 (09:24→17:06)
[2019-03-13] MEDS: INSULIN ASPART (NovoLOG) 100 UNIT/ML VIAL SQ SCH ×4 (09:24→21:13)
[2019-03-13] MEDS: PANTOPRAZOLE 40 MG/10 ML VIAL IVP SCH ×2 (09:27→21:14)
[2019-03-13] MEDS: NON FORMULARY DRUG (Vitamin C/Biotin [Hair, Skin And Nails] 1 TAB) PO SCH (09:28)
[2019-03-13] MEDS: MORPHINE SULFATE ER 15 MG TABLET PO SCH ×2 (09:33→21:13)
[2019-03-13] MEDS: VANCOMYCIN 750 MG in SODIUM CHLORIDE 0.9% 250 ML IVPB SCH ×2 (10:30→22:09)
[2019-03-13 11:29] LABS: Glucose,Whole Blood 164 mg/dL (75-99)
[2019-03-13 11:55] LABS: HGB 10.3 gm/dL (11.4-16.0); MCH 32.8 pg (25.0-35.0); MCHC 35.4 g/dL (31.0-37.0); MCV 92.7 fL (80.0-100.0); Mean Platelet Volume 7.2; RBC 3.13 m/uL (3.80-5.40); RDW 14.3 % (11.5-15.5)
[2019-03-13 12:00] LABS: Platelet Count 96 k/uL (150-450)
[2019-03-13 12:37] LABS: Band Neutrophils % 9 %; Lymphocytes # (M) 0.33 k/uL (1.0-4.8); Metamyelocytes # (M) 0.99 k/uL (0); Metamyelocytes % 6 %; Monocytes # (M) 0.99 k/uL (0-1.0); Myelocytes # (M) 0.17 k/uL (0); Myelocytes % 1 %; Neutrophils % (M) 76 %; Nucleated Red Blood Cells 2 /100 WBC (0-0); Total Cells Counted 100; WBC 16.5 k/uL (3.8-10.6)
--- NOTE | 2019-03-13 12:41 | XR ---
EXAMINATION TYPE: XR chest 1V portable DATE OF EXAM: 03/13/2019 COMPARISON: 03/09/2019 HISTORY: sob TECHNIQUE: Single frontal view of the chest is obtained. FINDINGS: Hyperinflation suggests COPD. Biapical pleural thickening. Mediport device noted on the ri ght. Atherosclerotic change aorta. Blunting the costophrenic angles suggesting pleural thickening or fluid. Diffuse osteopenia. Arthropathy of the shoulders. No overt failure. IMPRESSION: COPD with no definite acute infiltrate. Findings are similar to the prior exam.
[2019-03-13 17:04] LABS: Glucose,Whole Blood 210 mg/dL (75-99)
--- NOTE | 2019-03-13 17:50 | P.PN ---
Subjective Progress Note Date: 03/13/19 Principal diagnosis: Shortness of breath, confusion In follow-up today patient reports a significant episode of difficulty in breathing overnight, she described feeling like she couldn't breathe/catch her breath, she became very anxious, frightened and agitated, she was noted to be getting anxious this morning, patient was provided with PRN anti-anxiety medications with improvement in her symptoms. Patient is no longer complaining of a sore throat, dysphagia or odynophagia, her diet was advanced and she has tolerated it, no other complaints Objective - Vital Signs Vital signs: Vital Signs Temp 96.7 F L 03/13/19 11:40 Pulse 109 H 03/13/19 11:40 Resp 18 03/13/19 11:40 BP 132/74 03/13/19 11:40 Pulse Ox 96 03/13/19 11:40 Intake & Output 03/12/19 03/13/19 03/13/19 18:59 06:59 18:59 Intake Total 3160 1640 Balance 3160 1640 Weight 48 kg Intake: Intake, IV Titration 1300 1050 Amount Cefepime 2 gm In Sodium 100 100 Chloride 0.9% 100 ml @ 200 mls/hr IVPB Q8HR [facility]REZ Rx#:[id number] Fluconazole in NaCl,Iso- 50 Osm 100 mg In Saline 1 50ml.bag @ 50 mls/hr IVPB DAILY@2000 RAMÍREZ Rx#: [id number] Sodium Chloride 0.9% 1, 950 650 000 ml @ 75 mls/hr IV . [id number] RAMÍREZ Rx#:[id number] Vancomycin 750 mg In 250 250 Sodium Chloride 0.9% 250 ml @ 125 mls/hr IVPB Q12HR RAMÍREZ Rx#:[id number] Oral 1860 590 Other: Voiding Method Bedside Commode Bedside Commode # Voids 3 1 # Bowel Movements 1 - Constitutional General appearance: Present: average body habitus, cooperative, no acute distress - EENT Eyes: Present: anicteric sclerae, EOMI ENT: Present: hearing grossly normal, normal oropharynx - Respiratory Respiratory: bilateral: CTA - Cardiovascular Heart sounds: normal: S1, S2 Abnormal Heart Sounds: Absent: systolic murmur, diastolic murmur, rub, S3 Gallop, S4 Gallop, click, other - Peripheral edema leg Peripheral Edema: bilateral: None - Gastrointestinal General gastrointestinal: Present: normal bowel sounds, soft - Neurologic Neurologic: Present: CNII-XII intact - Musculoskeletal Musculoskeletal: Present: strength equal bilaterally - Psychiatric Psychiatric: Present: A&O x's 3, appropriate affect, intact judgment & insight - Labs CBC & Chem 7: 03/13/19 11:45 03/12/19 06:30 Labs: Abnormal Lab Results - Last 24 Hours (Table) 03/12/19 03/13/19 03/13/19 Range/Units 20:38 06:50 11:27 WBC (3.8-10.6) k/uL RBC (3.80-5.40) m/uL Hgb (11.4-16.0) gm/dL Hct (34.0-46.0) % Plt Count (150-450) k/uL Neutrophils # (Manual) (1.3-7.7) k/uL Lymphocytes # (Manual) (1.0-4.8) k/uL Metamyelocytes # (Man) (0) k/uL Myelocytes # (Manual) (0) k/uL Nucleated RBCs (0-0) /100 WBC POC Glucose (mg/dL) 218 H 161 H 164 H (75-99) mg/dL 03/13/19 03/13/19 Range/Units 11:45 16:51 WBC 16.5 H (3.8-10.6) k/uL RBC 3.13 L (3.80-5.40) m/uL Hgb 10.3 L (11.4-16.0) gm/dL Hct 29.0 L (34.0-46.0) % Plt Count 96 L D (150-450) k/uL Neutrophils # (Manual) 14.00 H (1.3-7.7) k/uL Lymphocytes # (Manual) 0.33 L (1.0-4.8) k/uL Metamyelocytes # (Man) 0.99 H (0) k/uL Myelocytes # (Manual) 0.17 H (0) k/uL Nucleated RBCs 2 H (0-0) /100 WBC POC Glucose (mg/dL) 210 H (75-99) mg/dL Microbiology - Last 24 Hours (Table) 03/09/19 12:35 Blood Culture - Preliminary Blood No Growth after 96 hours Assessment and Plan (1) Febrile neutropenia Current Visit: Yes Status: Resolved Priority: High Code(s): D70.9 - NE UTROPENIA, UNSPECIFIED; R50.81 - FEVER PRESENTING WITH CONDITIONS CLASSIFIED ELSEWHERE SNOMED Code(s): 438549253 (2) Radiation-induced esophagitis Current Visit: Yes Status: Resolved Priority: High Code(s): K20.8 - OTHER ESOPHAGITIS SNOMED Code(s): 372298649 (3) Pancytopenia Narrative/Plan: Secondary to chemotherapy. Patient's white count increased post administration of G-CSF. G-CSF discontinued today. Hemoglobin is stable and improving, at 10.3. Platelet count is stable at 96,000 today. Patient's chemotherapy is going to be adjusted. Current Visit: Yes Status: Acute Priority: Medium Code(s): D61.818 - OTHER PANCYTOPENIA SNOMED Code(s): 540797667 (4) Small cell lung cancer Narrative/Plan: Patient is status post her first cycle of 4 planned cycles of chemotherapy with immunotherapy. Plan is for immunotherapy maintenance treatment post combination therapy. Dose reduction of chemotherapy due to severely suppressed counts after 1 cycle is planned. Current Visit: No Status: Acute Priority: High Code(s): C34.90 - MALIGNANT NEOPLASM OF UNSP PART OF UNSP BRONCHUS OR LUNG SNOMED Code(s): 795912534
--- NOTE | 2019-03-13 19:01 | PN ---
PROGRESS NOTE DATE OF SERVICE: 03/13/2019 This 63-year-old woman who was admitted with multiple medical problems, including shortness of breath with COPD, acute exacerbation, neutropenic fever, is being closely monitored. Patient also had dysphagia; however, the patient is able to swallow food at this time. The patient is being empirically treated for candidal esophagitis. CT scan showed mild cerebral atrophy. No acute intracranial abnormality was noted. A repeat chest x-ray was done today which showed COPD with no definite acute infiltrate findings. There is no history of any fever, rigor or chills. No chest pain or palpitations. Past medical history reviewed. REVIEW OF SYSTEMS: CARDIOVASCULAR SYSTEM: No angina, palpitations. RESPIRATORY SYSTEM: As mentioned earlier. GI: No nausea, vomiting. : No dysuria or retention. NERVOUS SYSTEM: No numbness, weakness. CURRENT MEDICATIONS: 1. Post 10 mg p.o. daily. 2. Cool's Solution. 3. DuoNeb q.i.d. and p.r.n. 4. Xanax. 5. Hurricaine spray. 6. Cefepime 2 grams IV q.8. 7. . 8. Dilaudid. 9. EMLA cream. 10.Solu-Medrol. 11.MS Contin. 12.Habitrol. 13.Vitamin C. 14.Protonix. 15.Carafate. 16.Vancomycin. 17.Diflucan. PHYSICAL EXAMINATION: Patient is alert, oriented x3. Pulse is 112, blood pressure 126/83, respiration 24, temperature 97.6, pulse ox 92% on 3 L nasal cannula. HEENT: Conjunctivae normal. NECK: No jugular venous distention. CARDIOVASCULAR SYSTEM: S1, S2 muffled. RESPIRATORY SYSTEM: Breath sounds diminished at the bases. Bilateral scattered rhonchi and crackles. ABDOMEN: Soft, nontender. No mass palpable. NERVOUS SYSTEM: No focal deficit. LABS: WBC 16.5, hemoglobin 10.3. Glucose noted. Influenza is negative. ASSESSMENT: 1. Shortness of breath; possibly chronic obstructive pulmonary disease, acute exacerbation, with acute purulent tracheobronchitis, present on admission. 2. Neutropenic sepsis, present on admission. 3. Pancytopenia secondary to malignancy. 4. Dysphagia; possibly oral candidiasis and esophageal candidiasis, on empiric antifungal agents. 5. Myg-zemqs-ganv lung cancer with metastasis to the brain. 6. Hyponatremia. 7. History of generalized gait dysfunction. 8. Protein-calorie malnutrition with a body mass index of 17.1. 9. History of asthma, chronic obstructive pulmonary disease. 10.History of degenerative joint disease. 11.Continued ongoing nicotine dependence. 12.History of tetrahydrocannabinol. 13.Seizure disorder. 14.History of breast surgery. 15.History of tonsillectomy. 16.History of lumpectomy. 17.History of depression and anxiety. RECOMMENDATIONS AND DISCUSSION: I recommend to continue current medications, continue with the monitoring, symptomatic treatment. Otherwise at this time I recommend continue with bronchodilators. Continue with anxiety medications. Last night the patient had significant shortness of breath that partly could be due to anxiety. The GI service is not planning endoscopies because of the patient's symptomatic improvement. We will continue the antifungal agents, antibiotics and continue the bronchodilators and rest of the medications. Prognosis guarded. Closely follow with multiple consultants. Discussed with the patient, who understands and agrees. Further recommendations to follow. MMODL / IJN: [id number] /
[2019-03-13 20:56] LABS: Glucose,Whole Blood 233 mg/dL (75-99)
[2019-03-13] MEDS: FLUCONAZOLE IN NACL,ISO-OSM 100 MG in SALINE 1 50ML.BAG IVPB SCH (21:13)
--- NOTE | 2019-03-13 21:34 | PN ---
PROGRESS NOTE DATE OF SERVICE: March 13, 2019 Patient is a 63-year-old pleasant white female who has been admitted to the hospital with febrile neutropenia and severe dysphagia/odynophagia. She has been on empiric fluconazole for possible Elizabeth esophagitis and she is doing much better. Her oral intake has significantly improved since yesterday. She is able to consume solids with no further difficulty in swallowing. Overall, she is feeling better. PHYSICAL EXAMINATION: She appears comfortable in no apparent distress. VITAL SIGNS: Stable. Blood pressure is 132/74, pulse is 109, temperature 96.7. HEENT examination unremarkable. Conjunctivae pink. Sclerae anicteric. Oral cavity no lesions. Neck no JVD or lymph node enlargement. Chest was clear to auscultation. HEART: Regular rate and rhythm. ABDOMEN: Soft, bowel sounds are positive. No organomegaly. Extremities: No pedal edema. Skin no rashes. NEUROLOGIC: Alert and oriented x3. No focal deficits. LABS: From today WBC 16.5, hemoglobin 10.3, platelets are normal 96. Rest of the labs are normal. IMPRESSION: 1. Acute dysphagia/odynophagia secondary to infectious esophagitis, possible Elizabeth esophagitis and empiric fluconazole day #4 and she is doing much better. Her symptoms have improved and the dysphagia as well as odynophagia is resolving. Able to tolerate soft foods well. 2. Febrile neutropenia, resolved. Presently on broad-spectrum antibiotics. 3. Metastatic small cell lung CA, undergoing chemotherapy. RECOMMENDATIONS: 1. Advance diet as tolerated. 2. Continue fluconazole for a total of 14 days. 3. PPI, Protonix 40 mg daily. 4. No need for any endoscopic intervention at the present time as patient's symptoms are significantly improved. Thank you for this consultation. MMODL / IJN: [id number] /
[2019-03-14] MEDS: IPRATROPIUM-ALBUTEROL 3 ML NEB INHALATION SCH ×4 (00:10→12:10)
[2019-03-14] MEDS: CEFEPIME 2 GM in SODIUM CHLORIDE 0.9% 100 ML IVPB SCH ×2 (00:47→07:57)
[2019-03-14] MEDS: methylPREDNISolone SOD SUCCI 40 MG/ML 1 ML VIAL IV SCH ×2 (00:47→08:00)
[2019-03-14 05:43] VITALS: RESP 18
[2019-03-14] MEDS: SODIUM CHLORIDE 0.9% 1,000 ML IV SCH (06:32)
[2019-03-14] MEDS: NICOTINE 14MG/24HR PATCH TRANSDERM SCH (07:59)
[2019-03-14] MEDS: SUCRALFATE 1 GM TAB PO SCH (07:59)
[2019-03-14] MEDS: MORPHINE SULFATE ER 15 MG TABLET PO SCH (07:59)
[2019-03-14] MEDS: MULTIVITAMINS, THERA 1 EACH TAB PO SCH (07:59)
[2019-03-14] MEDS: DOCUSATE 100 MG CAP PO SCH (08:00)
[2019-03-14] MEDS: INSULIN ASPART (NovoLOG) 100 UNIT/ML VIAL SQ SCH ×2 (08:00→11:35)
[2019-03-14] MEDS: PANTOPRAZOLE 40 MG/10 ML VIAL IVP SCH (08:00)
[2019-03-14] MEDS: MAG HYDROX/AL HYDROX/SIMETH 30 ML, LIDOCAINE VISCOUS 30 ML, diphenhydrAMINE ELIXIR 75 M... PO SCH ×10 (08:02→11:35)
[2019-03-14] MEDS: VANCOMYCIN 750 MG in SODIUM CHLORIDE 0.9% 250 ML IVPB SCH (08:43)
[2019-03-14] MEDS: NON FORMULARY DRUG (Vitamin C/Biotin [Hair, Skin And Nails] 1 TAB) PO SCH (08:46)
[2019-03-14 08:51] LABS: African American GFR (CKD) >90 (>60 ml/min/1.73 sqM); Non-African American GFR(CKD) >90 (>60 ml/min/1.73 sqM)
[2019-03-14 11:27] LABS: Glucose,Whole Blood 254 mg/dL (75-99)
[2019-03-14 13:48] VITALS: BP 141/80; PULSE 109; TEMP 97.6
--- NOTE | 2019-03-14 17:53 | PN ---
PROGRESS NOTE DATE OF DICTATION: 03/14/2019 The patient is a 63-year-old pleasant white female admitted to the hospital with history of metastatic small-cell lung cancer, undergoing chemotherapy, admitted to the hospital with severe dysphagia, odynophagia and febrile neutropenia. Over the last 5 days her symptoms are significantly improved; in fact, today she was able to eat most of her lunch without any difficulty. She denies any more dysphagia or odynophagia. She has been on empiric fluconazole and doing much better. PHYSICAL EXAMINATION: She appears comfortable. No apparent distress. VITAL SIGNS: Stable. Blood pressure 141/80, pulse rate 109, temperature 97.6. HEENT examination unremarkable. Conjunctivae pink. Sclerae anicteric. Oral cavity no lesions. NECK: No JVD or lymph node enlargement. CHEST: Clear to auscultation. HEART: Regular rate and rhythm. ABDOMEN: Soft. Bowel sounds are positive. No organomegaly. EXTREMITIES: No pedal edema. SKIN: No rashes. NEUROLOGIC: Alert and oriented x3. No focal deficits. LABS: WBC 16.5, hemoglobin 10.3, platelets 96. IMPRESSION: 1. Severe dysphagia and odynophagia secondary to possibly infectious esophagitis, empirically on fluconazole for possible elicia esophagitis, and symptoms have significantly improved. She is able to tolerate a regular diet well. 2. Febrile neutropenia, resolved. 3. Pancytopenia, improving. 4. Metastatic small-cell lung cancer, undergoing chemotherapy. RECOMMENDATIONS: 1. Patient was advised to continue with a low-fiber diet. 2. Continue Protonix 40 mg daily. 3. Continue fluconazole for another 10 days. 4. Will sign off. Please call us if needed. Thank you for this consultation. MMODL / IJN: [id number] /
--- NOTE | 2019-03-14 22:54 | DS ---
DISCHARGE SUMMARY DATE OF SERVICE: 03/14/2019 FINAL DIAGNOSES: 1. Shortness of breath, possibly chronic obstructive pulmonary disease, acute exacerbation, with acute purulent tracheobronchitis, present on admission. 2. Neutropenic sepsis, present on admission, improved. 3. Pancytopenia secondary to malignancy, improved. 4. Dysphagia, possibly secondary to oral candidiasis and esophageal candidiasis, on empiric treatment, improved. 5. Cem-yhjlz-swbb lung cancer with metastasis to the brain. 6. Hyponatremia. 7. History of generalized gait dysfunction. 8. Protein-calorie malnutrition with a body mass index of 17.1. 9. History of asthma, chronic obstructive pulmonary disease. 10.History of degenerative joint disease. 11.Continued ongoing nicotine dependence. 12.History of tetrahydrocannabinol. 13.History of seizure disorder. 14.History of breast surgery. 15.History of tonsillectomy. 16.History of lumpectomy. 17.History of depression, anxiety. 18.NO CODE. DISCHARGE DISPOSITION: The patient will be discharged in stable condition with guarded prognosis. Total time taken 35 minutes. HISTORY OF PRESENT ILLNESS: This 63-year-old woman with a past medical history of multiple medical problems was admitted with COPD, neutropenic sepsis and multiple other medical problems. Patient is followed by Dr. Beltre in the outpatient setting. The patient was treated with bronchodilators, antibiotics, and improved significantly. Hematology/Oncology saw the patient. Care was coordinated. On exam, vitals are stable. CARDIOVASCULAR SYSTEM: S1, S2 muffled. ABDOMEN: Soft. NERVOUS SYSTEM: No focal deficit. DISCHARGE ADVICE AND MEDICATIONS: 1. Diet is cardiac. 2. Activity limited until followup. 3. Follow up with Dr. Beltre as recommended. 4. Follow up with Dr. Garcia as recommended. 5. Follow up with Dr. Little as recommended. 6. Follow up with Dr. Ordaz as recommended. 7. Ambien 5 mg p.o. at bedtime. 8. EMLA cream. 9. Vitamin C/Biotin. 10.Melatonin 3 mg p.o. daily. 11.Morphine sulfate ER 15 mg p.o. b.i.d. 12.[place] 10 mg q.6 p.r.n. 13.Spiriva 1 puff daily. 14.Ventolin HFA 2 puffs q.6 p.r.n. 15.Ceftin 500 mg p.o. daily for 3 days. 16.Colace 100 mg b.i.d. p.r.n. 17.Diflucan 100 mg p.o. daily for one week. 18.DuoNeb q.i.d. and p.r.n. 19.Habitrol 14 daily. 20.Multivitamins 1 p.o. daily. 21.Prednisone taper: 40 mg daily for 3 days; 30 mg daily for 3 days; 20 mg daily for 3 days; 10 mg daily for 3 days; then stop. 22.Protonix 40 mg p.o. daily. 23.Symbicort 160/4.5 two puffs b.i.d. 24.Lidocaine Viscous p.r.n. Once again, the patient will be discharged in stable condition with guarded prognosis. SERGIO / JACINTA: [id number] /
== END 2019-03-14 16:50 | disposition home health service (06) | DRG 871 ==
LOC: EC 11:56 → 3NMEDONC 14:08
PROVIDERS: ADMIT Internal Medicine; ATTEND Internal Medicine
DX: A41.9 Sepsis, unspecified organism (principal); D61.810 Antineoplastic chemotherapy induced pancytopenia; E43 Unspecified severe protein-calorie malnutrition; B37.81 Candidal esophagitis; C34.90 Malignant neoplasm of unspecified part of unspecified bronchus or lung; C79.31 Secondary malignant neoplasm of brain; Z68.1 Body mass index [BMI] 19.9 or less, adult; E87.1 Hypo-osmolality and hyponatremia; J44.1 Chronic obstructive pulmonary disease with (acute) exacerbation; F17.210 Nicotine dependence, cigarettes, uncomplicated; F32.9 Major depressive disorder, single episode, unspecified; F41.9 Anxiety disorder, unspecified; G40.909 Epilepsy, unspecified, not intractable, without status epilepticus; I49.3 Ventricular premature depolarization; K20.8 Other esophagitis; K21.9 Gastro-esophageal reflux disease without esophagitis; M19.90 Unspecified osteoarthritis, unspecified site; T45.1X5A Adverse effect of antineoplastic and immunosuppressive drugs, initial encounter; Z90.710 Acquired absence of both cervix and uterus; Z92.3 Personal history of irradiation; Y84.2 Radiological procedure and radiotherapy as the cause of abnormal reaction of the patient, or of later complication, without mention of misadventure at the time of the procedure; J20.9 Acute bronchitis, unspecified; Z66 Do not resuscitate; Z79.891 Long term (current) use of opiate analgesic; Z79.899 Other long term (current) drug therapy; Z91.018 Allergy to other foods
CPT/HCPCS: 36415; 70450; 71045; 71046; 80048; 80053; 80202; 82565; 83605; 84484; 85025; 85610; 85730; 86850; 86900; 86901; 86920; 87040; 87502; 93005; 94640; 96365; 96375; 99291

== ENCOUNTER → 2019-04-03 | Outpatient (CLI) | payer MEDICARE, OTHER ==
[2019-04-03 13:53] LABS: African American GFR (CKD) >90 (>60 ml/min/1.73 sqM); Blood Urea Nitrogen 12 mg/dL (7-17); Non-African American GFR(CKD) >90 (>60 ml/min/1.73 sqM)
--- NOTE | 2019-04-03 14:50 | CT ---
EXAMINATION TYPE: CT thor lumbar spine wo/w con DATE OF EXAM: 04/03/2019 COMPARISON: Correlation PET/CT 01/31/2019 HISTORY: 63-year-old female Back pain and lumbago TECHNIQUE: Contiguous axial scanning of the thoracic and lumbar spine performed without and with IV C ontrast, patient injected with 90 mL of Isovue 300. Delayed images through the kidneys were obtained. Coronal/sagittal reconstructions performed. CT DLP: 2939 mGycm Automated exposure control for dose reduction was used. FINDINGS: Mild dextroconvex curvature of the thoracic spine. The most intense area of uptake seen on the patient's 01/31/2019 CT seen to be within the T7 vertebra l body. There is some only vague sclerosis noted on CT here without any convincing extraosseous soft tissue mass. Moderate disc/endplate degenerative change within the visualized lower cervical spine with grade 1 an terolisthesis at C4-C5. Vertebral body heights are preserved. No large extraosseous soft tissue component is identified. Mild multilevel degenerative disc disease in the thoracic spine. Moderate to advanced degenerative disc disease L5-S1 with disc osteophyte complex. Corresponding hype rtrophic facet arthropathy with severe bilateral neuroforaminal stenoses at L5-S1. Overall pleural-based mass periphery of the right apex shows decrease in size from 01/31/2019. Persistent mediastinal lymphadenopathy measuring up to 1.7 cm precarinal (2.7 cm on 01/31/2019. Some contiguous soft tissue extends to the right suprahilar level. There is new left lower lobar collapsed and small left pleural effusion decreasing right adrenal nodu larity. Redemonstrated moth eaten appearance to the visualized left iliac wing compatible with generalized os seous metastatic disease. IMPRESSION: 1. NO LAURA LYTIC DESTRUCTION WITHIN THE THORACIC OR LUMBAR SPINE. A FEW AREAS OF VAGUE PATCHY SCLERO SIS MAY REFLECT THE KNOWN OSSEOUS METASTATIC DISEASE BUT MOST OF THE INVOLVEMENT OF THE SPINE SEEMS T O BE OCCULT BY CT. 2. NO VERTEBRAL COMPRESSION COLLAPSE. 3. MILD MULTILEVEL DEGENERATIVE DISC DISEASE IN THE THORACIC SPINE. MODERATE TO ADVANCED DEGENERATIVE DISC DISEASE AT L5-S1 AND CORRESPONDING BILATERAL FACET ARTHROPATHY RESULTING IN SEVERE BILATERAL NE URAL FORAMINAL STENOSIS. 4. PARTIAL RESPONSE COMPARED TO THE PET/CT OF 01/31/2019 WITH DECREASING RIGHT APICAL SUBPLEURAL S OFT TISSUE AND PERSISTENT BUT DECREASING SIZE OF THE PRECARINAL AND RIGHT SUPRAHILAR LYMPHADENOPATHY (PRECARINAL LYMPH NODE AT 1.7 CM VERSUS 2.7 CM, PREVIOUSLY). 5. NOTE NEW LEFT LOWER LOBAR COLLAPSE WITH A NEW SMALL LEFT PLEURAL EFFUSION. 6. KNOWN OSSEOUS INVOLVEMENT OF THE LEFT ILIAC WING WITH REDEMONSTRATED MOTH EATEN APPEARANCE.
== END | disposition home or self-care (01) ==
LOC: RADPROMAIN 13:12
PROVIDERS: ATTEND Internal Medicine Hematology & Oncology
DX: M51.34 Other intervertebral disc degeneration, thoracic region (principal); M51.37 Other intervertebral disc degeneration, lumbosacral region; M46.97 Unspecified inflammatory spondylopathy, lumbosacral region; M48.07 Spinal stenosis, lumbosacral region; C34.91 Malignant neoplasm of unspecified part of right bronchus or lung; J90 Pleural effusion, not elsewhere classified; R91.8 Other nonspecific abnormal finding of lung field; R59.1 Generalized enlarged lymph nodes
CPT/HCPCS: 82565; 84520; 72130; 72133; J1642; Q9967

== ENCOUNTER → 2019-04-23 | Outpatient (CLI) | payer MEDICARE, OTHER ==
[2019-04-23 15:05] LABS: African American GFR (CKD) >90 (>60 ml/min/1.73 sqM); Blood Urea Nitrogen 10 mg/dL (7-17); Non-African American GFR(CKD) >90 (>60 ml/min/1.73 sqM)
--- NOTE | 2019-04-23 15:57 | CT ---
EXAMINATION TYPE: CT chest w con DATE OF EXAM: 04/23/2019 COMPARISON: Chest CT January 24, 2019 and PET/CT January 31, 2019. HISTORY: f/u lung ca CT DLP: 113.5 mGycm. Automated Exposure Control for Dose Reduction was Utilized. TECHNIQUE: CT scan of the thorax is performed following with IV Contrast, patient injected with 100 mL of Isovue 300. FINDINGS: LUNGS: Background moderate to advanced underlying emphysematous change redemonstrated. Marked interva l improvement in lateral right apical mass or neoplasm with minimal residual tissue along the lateral aspect right lung apex seen. This is difficult to accurately measure measuring 3.6 x 0.6 cm axial im age 10. Additional nodular involvement medial right lung apex measures 8 x 7 mm axial image 6 decreas e in size from prior studies. Slightly elevated left hemidiaphragm. Mild linear scarring in both base s. There is new 6 x 5 mm left lower lobe nodule or nodular consolidation axial image 33 which can be closely followed. Few tiny smaller nodules lateral left lung base measure under 2 mm. No pleural effu margareth or pneumothorax bilaterally. MEDIASTINUM: Marked interval improvement in right hilar/suprahilar mass or adenopathy with residual l ow dense 2.7 x 1.3 cm lesion axial image 24 with some inferior hilar extension. There is persistent e xtension to the anterior pericarinal space axial image 24 and 25. No new greater than 1 cm adenopathy . No cardiomegaly or pericardial effusion is seen. OTHER: There is persistent 1.5 cm heterogeneous hypodense lesion right hepatic dome axial image 57. T his is felt enlarged from noncontrast CT images on PET/CT. Some small subcentimeter lesions left hepa tic lobe axial image 54 anteriorly for reference are stable or smaller. Right adrenal nodularity less prominent particularly right adrenal gland axial image 57 versus prior PET/CT axial image 138. S-sha ped scoliosis. IMPRESSION: Likely overall mixed response with marked improvement in lateral right apical neoplasm an d confluent right suprahilar adenopathy with mediastinal invasion. Nonspecific 6 mm superior left low er lobe nodule or nodular consolidation is new and can be followed. Hepatic metastatic disease redemo nstrated with one lesion thought increased in size and other lesions felt stable or smaller in size f rom prior PET/CT. Improvement in right adrenal metastatic disease thought present.
== END | disposition home or self-care (01) ==
LOC: RADPROMAIN 14:18
PROVIDERS: ATTEND Internal Medicine Hematology & Oncology
DX: C34.91 Malignant neoplasm of unspecified part of right bronchus or lung (principal)
CPT/HCPCS: 82565; 84520; 71260; 36415; J1642; Q9967

== ENCOUNTER → 2019-05-14 | Outpatient (CLI) | payer MEDICARE, OTHER ==
--- NOTE | 2019-05-14 13:01 | MR ---
EXAMINATION TYPE: MR brain wo/w con DATE OF EXAM: 05/14/2019 COMPARISON: 01/30/2019 HISTORY: Lung cancer with metastasis to the brain. TECHNIQUE: Multiplanar, multisequence images of the brain and brainstem is performed without and with IV contras t, utilizing 4.5 mL intravenous Gadavist . FINDINGS: There are numerous punctate foci of intracranial enhancement seen on the prior exam of 01/30/2019 dem onstrate response to treatment with no abnormal intracranial enhancement. Diffusion weighted images demonstrate no evidence of a recent infarct or other diffusion abnormality. There is no extra-axial fluid collection. There are few foci of scattered deep white matter T2/FLA IR hyperintensity as well as hyperintensity in the left leigh and periventricular white matter. These sites do not correspond to the previously seen intracranial metastatic foci. The ventricular system a nd cisternal spaces are symmetrically prominent compatible with age-related volume loss. Midline structures demonstrate normal morphology. There is patchy bone marrow signal on the T1 nonco ntrasted weighted images within the calvarium and upper cervical spine suggestive of osseous metastas is. There is also patchy enhancement within the bone marrow on postcontrast images. The craniocervical junction appears within normal limits. The dural venous sinuses appear patent. Mil d polypoid mucosal thickening is seen within the right maxillary sinus. Scant mucosal thickening is a lso present in the ethmoid and frontal sinuses. Left maxillary sinus is well. Mild mucosal thickening of the sphenoid sinus. Mastoid air cells are partially opacified bilaterally. IMPRESSION: 1. Response to treatment. The numerous intracranial metastatic foci demonstrated on the exam of 01/30 no longer demonstrate enhancement. 2. Mildly abnormal bone marrow signal of the calvarium and cervical spine suggesting osseous metastas is. 3. Mild burden nonspecific white matter change, likely on the basis of chronic microangiopathy.
== END | disposition home or self-care (01) ==
LOC: RADMRIMAIN 10:59
PROVIDERS: ATTEND Radiology Radiation Oncology
DX: C79.31 Secondary malignant neoplasm of brain (principal); C34.11 Malignant neoplasm of upper lobe, right bronchus or lung; F17.210 Nicotine dependence, cigarettes, uncomplicated
CPT/HCPCS: 70553; A9585

== ENCOUNTER 2019-07-02 10:32 | Observation (INO) | payer MEDICARE, OTHER ==
[2019-07-02] MEDS ORDERED: SODIUM CHLORIDE 0.9% 1,000 ML IV STA (10:49)
--- NOTE | 2019-07-02 10:49 | ED ---
General Adult HPI - General Chief complaint: Weakness Stated complaint: confusion Time Seen by Provider: 07/02/19 10:40 Source: patient, RN notes reviewed Mode of arrival: wheelchair Limitations: altered mental status - History of Present Illness Initial comments: Patient is a pleasant 64-year-old female presenting to the emergency department from,or patient states she was sent here because she has an appointment. They should states he feels well and has no complaints. Patient amiss to having a cough and some shortness of breath however states this is fairly chronic for her. Patient is extremely hard of hearing and is a poor historian. Further history is limited. - Related Data Home Medications Medication Instructions Recorded Confirmed Tiotropium [place] [Spiriva] 1 cap INHALATION RT-DAILY 01/16/19 07/02/19 Lidocaine-Prilocaine Cream [Emla 1 applic TOPICAL DAILY PRN 03/09/19 07/02/19 Cream 2.5%/2.5%] Morphine Sulfate [Morphine Sulfate 15 mg PO BID 03/09/19 07/02/19 ER] Budesonide/Formoterol Fumarate 1 puff INHALATION RT-BID 07/02/19 07/02/19 [Symbicort 160-4.5 Mcg Inhaler] Docusate [Colace] 100 mg PO BID 07/02/19 07/02/19 Levothyroxine Sodium [Synthroid] 50 mcg PO DAILY@0800 07/02/19 07/02/19 Multivit-Min/Iron/Folic/Lutein 1 tab PO DAILY@0800 07/02/19 07/02/19 [Centrum Silver Women Tablet] Prochlorperazine [Compazine] 10 mg PO Q6H PRN 07/02/19 07/02/19 Sennosides [Senna] 8.6 mg PO HS PRN 07/02/19 07/02/19 Zolpidem [Ambien] 5 mg PO HS 07/02/19 07/02/19 oxyCODONE HCL [OxyIR] 10 mg PO Q6H 07/02/19 07/02/19 Previous Rx's Medication Instructions Recorded Ipratropium-Albuterol Nebulize 3 ml INHALATION RT-Q6H #120 03/14/19 [Duoneb 0.5 mg-3 mg/3 ml Soln] ampul.neb Lidocaine Viscous [Xylocaine 30 ml PO Q6HR PRN #200 ml 03/14/19 Viscous 2%] Nicotine 14Mg/24Hr Patch [Habitrol] 1 patch TRANSDERM DAILY #30 patch 03/14/19 Pantoprazole Sodium [Protonix] 40 mg PO DAILY #30 tablet. 03/14/19 Allergies Allergy/AdvReac Type Severity Reaction Status Date / Time mushroom Allergy SOB, Verified 07/02/19 12:33 tongue swelling coconut AdvReac gets dizzy Verified 07/02/19 12:33 and had a seizure Review of Systems ROS Statement: Those systems with pertinent positive or pertinent negative responses have been documented in the HPI. ROS Other: All systems not noted in ROS Statement are negative. Constitutional: Denies: fever Eyes: Denies: eye pain ENT: Denies: ear pain Respiratory: Reports: as per HPI, cough, dyspnea Cardiovascular: Denies: chest pain Endocrine: Denies: fatigue Gastrointestinal: Denies: abdominal pain Genitourinary: Denies: dysuria Musculoskeletal: Denies: back pain Skin: Denies: rash Neurological: Reports: other (Patient denies confusion). Denies: headache, weakness Past Medical History Past Medical History: Asthma, Cancer, COPD, GERD/Reflux, Osteoarthritis (OA), Skin Disorder Additional Past Medical History / Comment(s): Metastatic small cell lung cancer, psoriasis, COPD with a baseline FEV1 of 51% of predicted, chronic smoker, chronic marijuana user, history of seizures disorder History of Any Multi-Drug Resistant Organisms: None Reported Past Surgical History: Breast Surgery, Ear Surgery, Hysterectomy, Tonsillectomy Additional Past Surgical History / Comment(s): ryan breast lumpectomy ("d/t crystallization"), oral surgery, surgery on rt ear after injury. Bronchoscopy 01/02/19. mediport right side chest Past Anesthesia/Blood Transfusion Reactions: Family History of Problems w/ Anesthesia Additional Past Anesthesia/Blood Transfusion Reaction / Comment(s): "dad on operative table-he had sepsis from blood clot in his leg" Past Psychological History: Anxiety, Depression Smoking Status: Current some day smoker Past Alcohol Use History: Occasional Past Drug Use History: None Reported - Past Family History Father Family Medical History: Deep Vein Thrombosis (DVT) Additional Family Medical History / Comment(s): "Gangrene in leg, on the table," possible DVT General Exam Limitations: no limitations General appearance: alert, in no apparent distress Head exam: Present: normocephalic Eye exam: Present: normal appearance, PERRL, EOMI ENT exam: Present: normal oropharynx Neck exam: Present: normal inspection Respiratory exam: Present: rhonchi Cardiovascular Exam: Present: regular rate, normal rhythm GI/Abdominal exam: Present: soft. Absent: tenderness Extremities exam: Present: normal inspection. Absent: pedal edema, calf tenderness Neurological exam: Present: alert, CN II-XII intact. Absent: motor sensory deficit Expanded Neurological exam: Present: protecting the airway Patient oriented to: Present: person. Absent: place, time Speech: Present: fluid speech Cranial nerves: EOM's Intact: Normal Motor strength exam: RUE: 5, LUE: 5, RLE: 5, LLE: 5 Eye Response: (4) open spontaneously Motor Response: (6) obeys commands Verbal Response: (4) confused conversation Psychiatric exam: Present: normal affect, normal mood Skin exam: Present: normal color Course Vital Signs 07/02/19 07/02/19 10:33 13:00 Temperature 97.7 F Pulse Rate 95 Respiratory 18 Rate Blood Pressure 119/78 125/80 O2 Sat by Pulse 87 L Oximetry EKG Findings - EKG Comments: EKG Findings:: Sinus rhythm at 76. SD 126. QRS 74. QT 418. QTC 470. Normal axis. Septal Q waves. T-wave inversion V1 through V3. Medical Decision Making - Medical Decision Making Patient reevaluated. Patient updated. Case discussed with Dr. Hager, who will admit for hospital call. Case also discussed with practitioner Krys Espinosa covering with Dr. Garcia who will consult. - Lab Data Result diagrams: 07/02/19 11:15 07/02/19 11:15 Lab Results 07/02/19 07/02/19 07/02/19 Range/Units 11:15 11:15 11:15 WBC 2.9 L (3.8-10.6) k/uL RBC 3.48 L (3.80-5.40) m/uL Hgb 11.0 L (11.4-16.0) gm/dL Hct 33.7 L (34.0-46.0) % MCV 96.9 (80.0-100.0) fL MCH 31.6 (25.0-35.0) pg MCHC 32.6 (31.0-37.0) g/dL RDW 14.6 (11.5-15.5) % Plt Count 152 (150-450) k/uL Neutrophils % 71 % Lymphocytes % 18 % Monocytes % 6 % Eosinophils % 3 % Basophils % 0 % Neutrophils # 2.0 (1.3-7.7) k/uL Lymphocytes # 0.5 L (1.0-4.8) k/uL Monocytes # 0.2 (0-1.0) k/uL Eosinophils # 0.1 (0-0.7) k/uL Basophils # 0.0 (0-0.2) k/uL PT 11.1 (9.0-12.0) sec INR 1.1 (<1.2) APTT 41.5 H (22.0-30.0) sec Sodium 135 L (137-145) mmol/L Potassium 4.1 (3.5-5.1) mmol/L Chloride 104 (98-107) mmol/L Carbon Dioxide 26 (22-30) mmol/L Anion Gap 5 mmol/L BUN 16 (7-17) mg/dL Creatinine 0.78 (0.52-1.04) mg/dL Est GFR (CKD-EPI)AfAm >90 (>60 ml/min/1.73 sqM) Est GFR (CKD-EPI)NonAf 80 (>60 ml/min/1.73 sqM) Glucose 87 (74-99) mg/dL POC Glucose (mg/dL) (75-99) mg/dL POC Glu Foreign Languages Department Chair ID Calcium 9.2 (8.4-10.2) mg/dL Total Bilirubin 0.4 (0.2-1.3) mg/dL AST 35 (14-36) U/L ALT 12 (4-34) U/L Alkaline Phosphatase 56 (38-126) U/L Total Protein 5.9 L (6.3-8.2) g/dL Albumin 3.7 (3.5-5.0) g/dL Urine Color Urine Appearance (Clear) Urine pH (5.0-8.0) Ur Specific [place] (1.001-1.035) Urine Protein (Negative) Urine Glucose (UA) (Negative) Urine Ketones (Negative) Urine Blood (Negative) Urine Nitrite (Negative) Urine Bilirubin (Negative) Urine Urobilinogen (<2.0) mg/dL Ur Leukocyte Esterase (Negative) Urine RBC (0-5) /hpf Urine WBC (0-5) /hpf Ur Squamous Epith Cells (0-4) /hpf Urine Bacteria (None) /hpf Hyaline Casts (0-2) /lpf Urine Mucus (None) /hpf Urine Opiates Screen (NotDetected) Ur Oxycodone Screen (NotDetected) Urine Methadone Screen (NotDetected) Ur Propoxyphene Screen (NotDetected) Ur Barbiturates Screen (NotDetected) U Tricyclic Antidepress (NotDetected) Ur Phencyclidine Scrn (NotDetected) Ur Amphetamines Screen (NotDetected) U Methamphetamines Scrn (NotDetected) U Benzodiazepines Scrn (NotDetected) Urine Cocaine Screen (NotDetected) U Marijuana (THC) Screen (NotDetected) 07/02/19 07/02/19 Range/Units 11:58 12:43 WBC (3.8-10.6) k/uL RBC (3.80-5.40) m/uL Hgb (11.4-16.0) gm/dL Hct (34.0-46.0) % MCV (80.0-100.0) fL MCH (25.0-35.0) pg MCHC (31.0-37.0) g/dL RDW (11.5-15.5) % Plt Count (150-450) k/uL Neutrophils % % Lymphocytes % % Monocytes % % Eosinophils % % Basophils % % Neutrophils # (1.3-7.7) k/uL Lymphocytes # (1.0-4.8) k/uL Monocytes # (0-1.0) k/uL Eosinophils # (0-0.7) k/uL Basophils # (0-0.2) k/uL PT (9.0-12.0) sec INR (<1.2) APTT (22.0-30.0) sec Sodium (137-145) mmol/L Potassium (3.5-5.1) mmol/L Chloride (98-107) mmol/L Carbon Dioxide (22-30) mmol/L Anion Gap mmol/L BUN (7-17) mg/dL Creatinine (0.52-1.04) mg/dL Est GFR (CKD-EPI)AfAm (>60 ml/min/1.73 sqM) Est GFR (CKD-EPI)NonAf (>60 ml/min/1.73 sqM) Glucose (74-99) mg/dL POC Glucose (mg/dL) 74 L (75-99) mg/dL POC Glu Foreign Languages Department Chair ID Berkley Lei Calcium (8.4-10.2) mg/dL Total Bilirubin (0.2-1.3) mg/dL AST (14-36) U/L ALT (4-34) U/L Alkaline Phosphatase (38-126) U/L Total Protein (6.3-8.2) g/dL Albumin (3.5-5.0) g/dL Urine Color Yellow Urine Appearance Cloudy H (Clear) Urine pH 5.5 (5.0-8.0) Ur Specific [place] 1.022 (1.001-1.035) Urine Protein Trace H (Negative) Urine Glucose (UA) Negative (Negative) Urine Ketones Trace H (Negative) Urine Blood Negative (Negative) Urine Nitrite Negative (Negative) Urine Bilirubin Negative (Negative) Urine Urobilinogen 2.0 (<2.0) mg/dL Ur Leukocyte Esterase Small H (Negative) Urine RBC 2 (0-5) /hpf Urine WBC 16 H (0-5) /hpf Ur Squamous Epith Cells 9 H (0-4) /hpf Urine Bacteria Rare H (None) /hpf Hyaline Casts 8 H (0-2) /lpf Urine Mucus Moderate H (None) /hpf Urine Opiates Screen Detected H (NotDetected) Ur Oxycodone Screen Detected H (NotDetected) Urine Methadone Screen Not Detected (NotDetected) Ur Propoxyphene Screen Not Detected (NotDetected) Ur Barbiturates Screen Not Detected (NotDetected) U Tricyclic Antidepress Not Detected (NotDetected) Ur Phencyclidine Scrn Not Detected (NotDetected) Ur Amphetamines Screen Not Detected (NotDetected) U Methamphetamines Scrn Not Detected (NotDetected) U Benzodiazepines Scrn Not Detected (NotDetected) Urine Cocaine Screen Not Detected (NotDetected) U Marijuana (THC) Screen Detected H (NotDetected) - Radiology Data Radiology results: report reviewed (Computed tomography scan of the brain shows no hemorrhage or shift. Mild atrophy and patchy areas of hypoattenuation that could be related to metastatic disease or microangiopathy), image reviewed (Chest x-ray without acute process. Increased density right superior lateral hemithorax) Disposition Clinical Impression: Small cell lung cancer, Altered mental status Disposition: ADMITTED IP TO THIS HOSP Is patient prescribed a controlled substance at d/c from ED?: No Referrals: None,Stated [Primary Care Provider] - 1-2 days Decision Time: 13:20
[2019-07-02 11:28] LABS: Basophils % (A) 0 %; Eosinophils # (A) 0.1 k/uL (0-0.7); Eosinophils % (A) 3 %; HCT 33.7 % (34.0-46.0); Lymphocytes # (A) 0.5 k/uL (1.0-4.8); Lymphocytes % (A) 18 %; MCH 31.6 pg (25.0-35.0); MCHC 32.6 g/dL (31.0-37.0); MCV 96.9 fL (80.0-100.0); Mean Platelet Volume 7.9; Monocytes # (A) 0.2 k/uL (0-1.0); Monocytes % (A) 6 %; Neutrophils % (A) 71 %; Platelet Count 152 k/uL (150-450); RBC 3.48 m/uL (3.80-5.40); RDW 14.6 % (11.5-15.5); WBC 2.9 k/uL (3.8-10.6)
[2019-07-02 11:39] LABS: INR 1.1 (<1.2); Partial Thromboplastin Time 41.5 sec (22.0-30.0); Prothrombin Time 11.1 sec (9.0-12.0)
--- NOTE | 2019-07-02 11:52 | CT ---
EXAMINATION TYPE: CT brain wo con DATE OF EXAM: 07/02/2019 COMPARISON: MRI brain dated 05/14/[address] dated 03/11/2019 HISTORY: Confusion. Known metastatic lung cancer. CT DLP: 1099.4 mGycm Automated exposure control for dose reduction was used. TECHNIQUE: CT scan of the head is performed without contrast. FINDINGS: There is no acute intracranial hemorrhage or midline shift identified. There is diffuse v entricular and sulcal prominence consistent with diffuse age-related cerebral atrophy. There a few a reas of low-attenuation in the periventricular white matter. The globes are intact. Mild mucosal thi ckening in the right maxillary sinus. Inspissated secretions are seen in the sphenoid sinus. There is rightward nasal septal deviation. Remaining paranasal sinuses are well aerated. Scant amount of flui d is seen within both mastoid air cells and the left middle ear cavity. Cerumen is seen within both e xternal auditory canals. IMPRESSION: 1. No new intracranial hemorrhage or midline shift. The patient's known metastatic lung cancer on the MRI of 05/14/2019 no longer showed abnormal enhancement and didn't demonstrate response to treatment. 2. Mild paranasal sinus disease with sphenoid sinus inspissated secretions. Small amount of fluid is also seen within the left middle ear cavity. Bilateral scant amount of mastoid air cell fluid. Correl ate for left otomastoiditis. 2. Mild diffuse age-related cerebral atrophy and few patchy areas of hypoattenuation that may be on t he basis of microangiopathy or sequela of the patient's known metastatic lung cancer.
[2019-07-02 11:59] LABS: Glucose,Whole Blood 74 mg/dL (75-99)
--- NOTE | 2019-07-02 12:04 | XR ---
EXAMINATION TYPE: XR chest 2V DATE OF EXAM: 07/02/2019 COMPARISON: Prior chest x-ray 03/13/2019, chest CT 04/23/2019 HISTORY: Altered mental status TECHNIQUE: Frontal and lateral views of the chest are obtained on 3 images. FINDINGS: There is hyperinflation with increased retrosternal airspace consistent with patient's unde rlying emphysema, abnormal increased density along the superolateral right hemithorax shows a similar appearance accounting for differences in technique. Patient's Port-A-Cath remains in place and is st able via right internal jugular vein approach. No evident pneumothorax or pleural effusion. The hear t is small, patient's left lower lobe lung nodule was not seen on today's exam. There is a persistent prominence of the right hilum. Aorta is dense. IMPRESSION: No acute cardiopulmonary process. Patient with known lung carcinoma, emphysema
[2019-07-02 12:07] LABS: ALT 12 U/L (4-34); AST 35 U/L (14-36); African American GFR (CKD) >90 (>60 ml/min/1.73 sqM); Albumin 3.7 g/dL (3.5-5.0); Alkaline Phosphatase 56 U/L (38-126); Anion Gap 5 mmol/L; Blood Urea Nitrogen 16 mg/dL (7-17); Calcium 9.2 mg/dL (8.4-10.2); Carbon Dioxide 26 mmol/L (22-30); Chloride 104 mmol/L (98-107); Glucose 87 mg/dL (74-99); Non-African American GFR(CKD) 80 (>60 ml/min/1.73 sqM); Potassium 4.1 mmol/L (3.5-5.1); Sodium 135 mmol/L (137-145); Total Bilirubin 0.4 mg/dL (0.2-1.3); Total Protein 5.9 g/dL (6.3-8.2)
[2019-07-02 13:08] LABS: Appearance,Urine Cloudy (Clear); Bacteria,Urine Rare /hpf; Bilirubin,Urine Negative (Negative); Blood,Urine Negative (Negative); Color,Urine Yellow; Glucose,Urine (UA) Negative (Negative); Hyaline Casts,Urine 8 /lpf (0-2); Ketones,Urine Trace (Negative); Leukocyte Esterase,Urine Small (Negative); Mucus,Urine Moderate /hpf; Nitrite,Urine Negative (Negative); PH, Urine 5.5 (5.0-8.0); Protein,Urine Trace (Negative); RBC,Urine 2 /hpf (0-5); Specific Gravity,Urine 1.022 (1.001-1.035); Squamous Epithelial Cell,Urine 9 /hpf (0-4); WBC,Urine 16 /hpf (0-5)
[2019-07-02 13:16] LABS: Amphetamine Screen,Urine Not Detected (NotDetected); Benzodiazepines Screen,Urine Not Detected (NotDetected); Cocaine Screen,Urine Not Detected (NotDetected); Opiate Screen,Urine Detected (NotDetected); Phencyclidine Screen,Urine Not Detected (NotDetected); Tricyclic Antidepressant,Urine Not Detected (NotDetected); Urn Cannabinoid Scrn Detected (NotDetected)
[2019-07-02 13:17] LABS: Barbiturate Screen,Urine Not Detected (NotDetected); Methadone Screen, Urine Not Detected (NotDetected); Oxycodone Screen, Urine Detected (NotDetected)
[2019-07-02] MEDS ORDERED: NALOXONE 0.4 MG/ML 1 ML VIAL IV PRN (13:21)
[2019-07-02] MEDS ORDERED: LIDOCAINE-PRILOCAINE 2.5-2.5% CREAM 5 GM TUBE TOPICAL PRN (13:27)
[2019-07-02] MEDS ORDERED: PROCHLORPERAZINE 10 MG TAB PO PRN (13:27)
[2019-07-02] MEDS ORDERED: SENNOSIDES 8.6 MG TAB PO PRN (13:27)
[2019-07-02] MEDS ORDERED: LIDOCAINE VISCOUS 300 MG/15 ML CUP MUCOUS MEM PRN ×2 (13:27→14:08)
--- NOTE | 2019-07-02 13:58 | P.HPIM ---
History of Present Illness Patient is a pleasant 64-year-old female was sent in from oncology clinic as a they believe patient is bit confused when I valid to the patient patient is alert oriented 3 patient is apparently confused today in the clinic and was s everely anorectic dehydrated. 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 Patient appears to have been on biologic agents for her lung cancer. Patient is severely cachectic. Patient denied any fever chills patient denied any dysuria patient denied any cough UA is not significant for any infection but does have sore, 7 epithelial cells consistent with contaminated urine sample. Review of Systems REVIEW OF SYSTEMS: CONSTITUTIONAL: No fever, no malaise, no fatigue. HEENT: No recent visual problems or hearing problems. Denied any sore throat. CARDIOVASCULAR: No chest pain, orthopnea, PND, no palpitations, no syncope. PULMONARY: No shortness of breath, no cough, no hemoptysis. GASTROINTESTINAL: No diarrhea, no nausea, no vomiting, no abdominal pain. NEUROLOGICAL: No headaches, no weakness, no numbness. HEMATOLOGICAL: Denies any bleeding or petechiae. GENITOURINARY: Denies any burning micturition, frequency, or urgency. MUSCULOSKELETAL/RHEUMATOLOGICAL: Denies any joint pain, swelling, or any muscle pain. ENDOCRINE: Denies any polyuria or polydipsia. The rest of the 14-point review of systems is negative. Past Medical History Past Medical History: Asthma, Cancer, COPD, GERD/Reflux, Osteoarthritis (OA), Skin Disorder Additional Past Medical History / Comment(s): Metastatic small cell lung cancer, psoriasis, COPD with a baseline FEV1 of 51% of predicted, chronic smoker, chronic marijuana user, history of seizures disorder History of Any Multi-Drug Resistant Organisms: None Reported Past Surgical History: Breast Surgery, Ear Surgery, Hysterectomy, Tonsillectomy Additional Past Surgical History / Comment(s): ryan breast lumpectomy ("d/t crystallization"), oral surgery, surgery on rt ear after injury. Bronchoscopy 01/02/19. mediport right side chest Past Anesthesia/Blood Transfusion Reactions: Family History of Problems w/ Anest hesia Additional Past Anesthesia/Blood Transfusion Reaction / Comment(s): "dad on operative table-he had sepsis from blood clot in his leg" Past Psychological History: Anxiety, Depression Smoking Status: Current some day smoker Past Alcohol Use History: Occasional Past Drug Use History: None Reported - Past Family History Father Family Medical History: Deep Vein Thrombosis (DVT) Additional Family Medical History / Comment(s): "Gangrene in leg, on the table," possible DVT Medications and Allergies Home Medications Medication Instructions Recorded Confirmed Type Tiotropium [place] [Spiriva] 1 cap INHALATION RT-DAILY 01/16/19 07/02/19 History Lidocaine-Prilocaine Cream [Emla 1 applic TOPICAL DAILY PRN 03/09/19 07/02/19 History Cream 2.5%/2.5%] Morphine Sulfate [Morphine Sulfate 15 mg PO BID 03/09/19 07/02/19 History ER] Ipratropium-Albuterol Nebulize 3 ml INHALATION RT-Q6H #120 03/14/19 07/02/19 Rx [Duoneb 0.5 mg-3 mg/3 ml Soln] ampul.neb Lidocaine Viscous [Xylocaine 30 ml PO Q6HR PRN #200 ml 03/14/19 07/02/19 Rx Viscous 2%] Nicotine 14Mg/24Hr Patch [Habitrol] 1 patch TRANSDERM DAILY #30 patch 03/14/19 07/02/19 Rx Pantoprazole Sodium [Protonix] 40 mg PO DAILY #30 tablet. 03/14/19 07/02/19 Rx Budesonide/Formoterol Fumarate 1 puff INHALATION RT-BID 07/02/19 07/02/19 History [Symbicort 160-4.5 Mcg Inhaler] Docusate [Colace] 100 mg PO BID 07/02/19 07/02/19 History Levothyroxine Sodium [Synthroid] 50 mcg PO DAILY@0800 07/02/19 07/02/19 History Multivit-Min/Iron/Folic/Lutein 1 tab PO DAILY@0800 07/02/19 07/02/19 History [Centrum Silver Women Tablet] Prochlorperazine [Compazine] 10 mg PO Q6H PRN 07/02/19 07/02/19 History Sennosides [Senna] 8.6 mg PO HS PRN 07/02/19 07/02/19 History Zolpidem [Ambien] 5 mg PO HS 07/02/19 07/02/19 History oxyCODONE HCL [OxyIR] 10 mg PO Q6H 07/02/19 07/02/19 History Allergies Allergy/AdvReac Type Severity Reaction Status Date / Time mushroom Allergy SOB, Verified 07/02/19 12:33 tongue swelling coconut AdvReac gets dizzy Verified 07/02/19 12:33 and had a seizure Physical Exam Vitals: Vital Signs Temp Pulse Resp BP Pulse Ox 07/02/19 13:00 125/80 07/02/19 10:33 97.7 F 95 18 119/78 87 L Intake and Output 07/01/19 07/02/19 07/02/19 22:59 06:59 14:59 Other: Weight 38.555 kg PHYSICAL EXAMINATION: GENERAL: The patient is alert and oriented x3, not in any acute distress. Thin built cachectic HEENT: Pupils are round and equally reacting to light. EOMI. No scleral icterus. No conjunctival pallor. Normocephalic, atraumatic. No pharyngeal erythema. No thyromegaly. Dry mucous membranes CARDIOVASCULAR: S1 and S2 present. No murmurs, rubs, or gallops. PULMONARY: Chest is clear to auscultation, no wheezing or crackles. ABDOMEN: Soft, nontender, nondistended, normoactive bowel sounds. No palpable organomegaly. MUSCULOSKELETAL: No joint swelling or deformity. EXTREMITIES: No cyanosis, clubbing, or pedal edema. NEUROLOGICAL: Gross neurological examination did not reveal any focal deficits. SKIN: No rashes. Results CBC & Chem 7: 07/02/19 11:15 07/02/19 11:15 Labs: Abnormal Lab Results - Last 24 Hours (Table) 07/02/19 07/02/19 07/02/19 Range/Units 11:15 11:15 11:15 WBC 2.9 L (3.8-10.6) k/uL RBC 3.48 L (3.80-5.40) m/uL Hgb 11.0 L (11.4-16.0) gm/dL Hct 33.7 L (34.0-46.0) % Lymphocytes # 0.5 L (1.0-4.8) k/uL APTT 41.5 H (22.0-30.0) sec Sodium 135 L (137-145) mmol/L POC Glucose (mg/dL) (75-99) mg/dL Total Protein 5.9 L (6.3-8.2) g/dL Urine Appearance (Clear) Urine Protein (Negative) Urine Ketones (Negative) Ur Leukocyte Esterase (Negative) Urine WBC (0-5) /hpf Ur Squamous Epith Cells (0-4) /hpf Urine Bacteria (None) /hpf Hyaline Casts (0-2) /lpf Urine Mucus (None) /hpf Urine Opiates Screen (NotDetected) Ur Oxycodone Screen (NotDetected) U Marijuana (THC) Screen (NotDetected) 07/02/19 07/02/19 Range/Units 11:58 12:43 WBC (3.8-10.6) k/uL RBC (3.80-5.40) m/uL Hgb (11.4-16.0) gm/dL Hct (34.0-46.0) % Lymphocytes # (1.0-4.8) k/uL APTT (22.0-30.0) sec Sodium (137-145) mmol/L POC Glucose (mg/dL) 74 L (75-99) mg/dL Total Protein (6.3-8.2) g/dL Urine Appearance Cloudy H (Clear) Urine Protein Trace H (Negative) Urine Ketones Trace H (Negative) Ur Leukocyte Esterase Small H (Negative) Urine WBC 16 H (0-5) /hpf Ur Squamous Epith Cells 9 H (0-4) /hpf Urine Bacteria Rare H (None) /hpf Hyaline Casts 8 H (0-2) /lpf Urine Mucus Moderate H (None) /hpf Urine Opiates Screen Detected H (NotDetected) Ur Oxycodone Screen Detected H (NotDetected) U Marijuana (THC) Screen Detected H (NotDetected) Assessment and Plan Plan: -Confusion and altered mental status probably toxic encephalopathy from multiple opiate medications, patient will be continued on sustained release morphine and will Discontinue as needed OxyContin. Patient will be started on Toradol instead along with GI prophylaxis. -Dehydration: Patient will be started on IV fluids secondary to poor peripheral intake -Anorexia and cachexia secondary to cancer patient will benefit benefit from Marinol which was stable on discharge. Moderate protein calorie malnutrition -Small Cell lung cancer with the metastatic disease to brain as there is no significant vasogenic edema not sure if this is contributing to confusion oncology will be consulted an not sure whether patient will benefit from any Decadron evaluated the patient oncology. -COPD without any acute exacerbation still smokes about 1-2 cigarettes per day -Gastro esophageal reflux disease dvt prophylaxis with heparin and GI prophylaxis with Protonix
[2019-07-02] MEDS: IPRATROPIUM-ALBUTEROL 3 ML NEB INHALATION SCH ×3 (15:16→19:05)
[2019-07-02] MEDS: SODIUM CHLORIDE 0.9% 1,000 ML IV SCH (18:14)
[2019-07-02] MEDS: SYMBICORT 160-4.5 MCG INHALER INHALATION SCH (19:05)
[2019-07-02] MEDS: DOCUSATE 100 MG CAP PO SCH (20:15)
[2019-07-02] MEDS: MORPHINE SULFATE ER 15 MG TABLET PO SCH (20:15)
[2019-07-02] MEDS: HEPARIN SODIUM,PORCINE 5,000 UNIT/ML 1 ML VIAL SQ SCH (20:15)
[2019-07-02 20:30] VITALS: RESP 18
[2019-07-03] MEDS: IPRATROPIUM-ALBUTEROL 3 ML NEB INHALATION SCH ×3 (04:17→12:00)
[2019-07-03] MEDS: SODIUM CHLORIDE 0.9% 1,000 ML IV SCH (05:47)
[2019-07-03] MEDS: SYMBICORT 160-4.5 MCG INHALER INHALATION SCH (07:28)
[2019-07-03] MEDS ORDERED: PANTOPRAZOLE 40 MG TABLET PO SCH (07:30)
[2019-07-03] MEDS ORDERED: NON FORMULARY DRUG (Tiotropium Bromide [Spiriva] 1 CAP) INHALATION SCH (08:00)
[2019-07-03] MEDS ORDERED: LEVOTHYROXINE 50 MCG TAB PO SCH (08:00)
[2019-07-03] MEDS ORDERED: NICOTINE 14MG/24HR PATCH TRANSDERM SCH (09:00)
[2019-07-03 09:46] LABS: Basophils % (A) 0 %; Eosinophils # (A) 0.1 k/uL (0-0.7); Eosinophils % (A) 2 %; Hypochromasia Slight; Lymphocytes # (A) 0.8 k/uL (1.0-4.8); Lymphocytes % (A) 17 %; MCH 31.5 pg (25.0-35.0); MCHC 31.9 g/dL (31.0-37.0); MCV 98.6 fL (80.0-100.0); Mean Platelet Volume 7.5; Monocytes # (A) 0.2 k/uL (0-1.0); Monocytes % (A) 6 %; Neutrophils # (A) 3.2 k/uL (1.3-7.7); Neutrophils % (A) 73 %; Platelet Count 208 k/uL (150-450); RBC 4.46 m/uL (3.80-5.40); RDW 14.5 % (11.5-15.5); WBC 4.5 k/uL (3.8-10.6)
[2019-07-03 09:49] LABS: ALT 11 U/L (4-34); AST 37 U/L (14-36); African American GFR (CKD) >90 (>60 ml/min/1.73 sqM); Albumin 3.7 g/dL (3.5-5.0); Alkaline Phosphatase 65 U/L (38-126); Anion Gap 9 mmol/L; Blood Urea Nitrogen 15 mg/dL (7-17); Calcium 9.1 mg/dL (8.4-10.2); Carbon Dioxide 23 mmol/L (22-30); Chloride 105 mmol/L (98-107); Glucose 140 mg/dL (74-99); Non-African American GFR(CKD) 83 (>60 ml/min/1.73 sqM); Potassium 4.3 mmol/L (3.5-5.1); Sodium 137 mmol/L (137-145); Total Bilirubin 0.4 mg/dL (0.2-1.3); Total Protein 6.3 g/dL (6.3-8.2)
[2019-07-03] MEDS: DOCUSATE 100 MG CAP PO SCH (10:34)
[2019-07-03] MEDS: HEPARIN SODIUM,PORCINE 5,000 UNIT/ML 1 ML VIAL SQ SCH (10:35)
[2019-07-03] MEDS: MORPHINE SULFATE ER 15 MG TABLET PO SCH (10:35)
[2019-07-03 10:48] VITALS: BMI 14.9
[2019-07-03 11:32] VITALS: BP 123/76; PULSE 98; TEMP 97.6
--- NOTE | 2019-07-03 12:07 | P.DS ---
Providers Date of admission: 07/02/19 13:21 Expected date of discharge: 07/03/19 Attending physician: Jannie Hager Consults: 07/02/19 13:22 Consult Physician Urgent Consulting Provider: Fito Garcia Consult Reason/Comments: Oncological Do you want consulting provider notified?: Already Contacted 07/02/19 13:38 Consult Physician Routine Consulting Provider: Lambert Berrios Consult Reason/Comments: lung cancer mets to lilli Do you want consulting provider notified?: Yes Primary care physician: Stated None Hospital Course: Final diagnosis -Confusion and altered mental status probably toxic encephalopathy from multiple opiate medications -Dehydration -Anorexia and cachexia secondary to cancer -Moderate protein calorie malnutrition -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 Patient will need to follow-up with oncology in the outpatient setting. Total time taken is 35 minutes. History of present illness This is an 64-year-old female who was recently admitted with some confusion and was sent in from her oncology clinic, [facility] and was being closely monitored. Patient's oxycodone was discontinued as this may be related to medications. 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 Repeat CT done during this admission showed the same metastatic disease without any improvement or worsening. Patient is severely cachectic and does not eat much. Patient was initiated on Marinol and a prescription was provided for discharge. Currently no reports of chest pain, shortness of breath, or palpitations. Patient is afebrile. No reports of nausea or vomiting and patient is tolerating diet. Patient will be discharged to [facility] today. On exam vital signs are stable. Temp is 97.6 F, respirations are 18, blood pressure is 123/76 , pulse is 98 , oxygen saturation is 96% on 4 L via nasal cannula. Patient normally wears oxygen in the outpatient setting. Cardio S1, S2 are present. Respiratory shows diminished breath sounds at the bases with no wheezing or rhonchi noted. Abdomen is soft, thin, and nontender. Nervous system shows no focal deficits. Please refer to medication reconciliation sheet for a list of medications. Patient Condition at Discharge: Stable Plan - Discharge Summary Discharge Rx Participant: No New Discharge Prescriptions: New Dronabinol [Marinol] 2.5 mg PO AC-BID #30 cap Continue Tiotropium [place] [Spiriva] 1 cap INHALATION RT-DAILY Lidocaine-Prilocaine Cream [Emla Cream 2.5%/2.5%] 1 applic TOPICAL DAILY PRN PRN Reason: PORT ACCESS Morphine Sulfate [Morphine Sulfate ER] 15 mg PO BID Ipratropium-Albuterol Nebulize [Duoneb 0.5 mg-3 mg/3 ml Soln] 3 ml INHALATION RT-Q6H #120 ampul.neb Nicotine 14Mg/24Hr Patch [Habitrol] 1 patch TRANSDERM DAILY #30 patch Pantoprazole Sodium [Protonix] 40 mg PO DAILY #30 tablet.dr Lidocaine Viscous [Xylocaine Viscous 2%] 30 ml PO Q6HR PRN #200 ml PRN Reason: Pain Prochlorperazine [Compazine] 10 mg PO Q6H PRN PRN Reason: Nausea Budesonide/Formoterol Fumarate [Symbicort 160-4.5 Mcg Inhaler] 1 puff INHALATION RT-BID Levothyroxine Sodium [Synthroid] 50 mcg PO DAILY@0800 Multivit-Min/Iron/Folic/Lutein [Centrum Silver Women Tablet] 1 tab PO DAILY@0800 Docusate [Colace] 100 mg PO BID Sennosides [Senna] 8.6 mg PO HS PRN PRN Reason: Constipation Discontinued Zolpidem [Ambien] 5 mg PO HS oxyCODONE HCL [OxyIR] 10 mg PO Q6H Discharge Medication List Tiotropium [place] [Spiriva] 1 cap INHALATION RT-DAILY 01/16/19 [History] Lidocaine-Prilocaine Cream [Emla Cream 2.5%/2.5%] 1 applic TOPICAL DAILY PRN 03/09/19 [History] Morphine Sulfate [Morphine Sulfate ER] 15 mg PO BID 03/09/19 [History] Ipratropium-Albuterol Nebulize [Duoneb 0.5 mg-3 mg/3 ml Soln] 3 ml INHALATION RT-Q6H #120 ampul.neb 03/14/19 [Rx] Lidocaine Viscous [Xylocaine Viscous 2%] 30 ml PO Q6HR PRN #200 ml 03/14/19 [Rx] Nicotine 14Mg/24Hr Patch [Habitrol] 1 patch TRANSDERM DAILY #30 patch 03/14/19 [Rx] Pantoprazole Sodium [Protonix] 40 mg PO DAILY #30 tablet. 03/14/19 [Rx] Budesonide/Formoterol Fumarate [Symbicort 160-4.5 Mcg Inhaler] 1 puff INHALATION RT-BID 07/02/19 [History] Docusate [Colace] 100 mg PO BID 07/02/19 [History] Levothyroxine Sodium [Synthroid] 50 mcg PO DAILY@0800 07/02/19 [History] Multivit-Min/Iron/Folic/Lutein [Centrum Silver Women Tablet] 1 tab PO DAILY@0800 07/02/19 [History] Prochlorperazine [Compazine] 10 mg PO Q6H PRN 07/02/19 [History] Sennosides [Senna] 8.6 mg PO HS PRN 07/02/19 [History] Dronabinol [Marinol] 2.5 mg PO AC-BID #30 cap 07/03/19 [Rx] Follow up Appointment(s)/Referral(s): None,Stated [Primary Care Provider] - 1-2 days Activity/Diet/Wound Care/Special Instructions: Patient going to [facility] as tolerated Follow-up with oncology Discharge Disposition: TRANSFER TO SNF/ECF
[2019-07-03 15:29] LABS: T4, Free (Free Thyroxine) 0.74 ng/dL (0.78-2.19)
--- NOTE | 2019-07-03 17:55 | P.CONS ---
History of Present Illness - Reason for Consult Consult date: 07/02/19 dizziness, weakness Requesting physician: Steve Berg - History of Present Illness Mrs. Jones is a very pleasant 63-year-old female patient of Dr. Garcia who presented to [facility] in December 2018 with complaints of central chest pain radiating to the right chest and axilla. Chest x-ray and CT scan revealed masslike infiltrate extending to the right pleura with mediastinal lymphadenopathy. Bronchoscopy on 01/02/2019 with Goss needle biopsy of mediastinal lymph nodes revealed poorly differentiated small cell carcinoma. Patient was seen with recommendations given for combination of all therapy and immunotherapy patient is status post her first cycle of treatment. She has known extensive stage disease. Patient states to me that she became "delirious" over the last 48 hours, severe neck pain, throat pain, inability to swallow, she could not take her medications, she was unable to stay hydrated. She denied any fevers, nausea, vomiting, new or unusual chest pain, abdominal pain or cramping, acute changes in bowel or bladder habits, bleeding, swelling or rash. Review of Systems A 14 point review of systems was assessed and completed although patient poor historian armand x1-2 Past Medical History Past Medical History: Asthma, Cancer, COPD, GERD/Reflux, Osteoarthritis (OA), Skin Disorder Additional Past Medical History / Comment(s): Metastatic small cell lung cancer, psoriasis, COPD with a baseline FEV1 of 51% of predicted, chronic smoker, chronic marijuana user, history of seizures disorder History of Any Multi-Drug Resistant Organisms: None Reported Past Surgical History: Breast Surgery, Ear Surgery, Hysterectomy, Tonsillectomy Additional Past Surgical History / Comment(s): ryan breast lumpectomy ("d/t crystallization"), oral surgery, surgery on rt ear after injury. Bronchoscopy 01/02/19. mediport right side chest Past Anesthesia/Blood Transfusion Reactions: Family History of Problems w/ Anesthesia Additional Past Anesthesia/Blood Transfusion Reaction / Comm: "dad on operative table-he had sepsis from blood clot in his leg" Past Psychological History: Anxiety, Depression Smoking Status: Current some day smoker Past Alcohol Use History: Occasional Past Drug Use History: None Reported - Past Family History Father Family Medical History: Deep Vein Thrombosis (DVT) Additional Family Medical History / Comment(s): "Gangrene in leg, on the table," possible DVT Medications and Allergies Home Medications Medication Instructions Recorded Confirmed Type Tiotropium [place] [Spiriva] 1 cap INHALATION RT-DAILY 01/16/19 07/02/19 History Lidocaine-Prilocaine Cream [Emla 1 applic TOPICAL DAILY PRN 03/09/19 07/02/19 History Cream 2.5%/2.5%] Morphine Sulfate [Morphine Sulfate 15 mg PO BID 03/09/19 07/02/19 History ER] Ipratropium-Albuterol Nebulize 3 ml INHALATION RT-Q6H #120 03/14/19 07/02/19 Rx [Duoneb 0.5 mg-3 mg/3 ml Soln] ampul.neb Lidocaine Viscous [Xylocaine 30 ml PO Q6HR PRN #200 ml 03/14/19 07/02/19 Rx Viscous 2%] Nicotine 14Mg/24Hr Patch [Habitrol] 1 patch TRANSDERM DAILY #30 patch 03/14/19 07/02/19 Rx Pantoprazole Sodium [Protonix] 40 mg PO DAILY #30 tablet. 03/14/19 07/02/19 Rx Budesonide/Formoterol Fumarate 1 puff INHALATION RT-BID 07/02/19 07/02/19 History [Symbicort 160-4.5 Mcg Inhaler] Docusate [Colace] 100 mg PO BID 07/02/19 07/02/19 History Levothyroxine Sodium [Synthroid] 50 mcg PO DAILY@0800 07/02/19 07/02/19 History Multivit-Min/Iron/Folic/Lutein 1 tab PO DAILY@0800 07/02/19 07/02/19 History [Centrum Silver Women Tablet] Prochlorperazine [Compazine] 10 mg PO Q6H PRN 07/02/19 07/02/19 History Sennosides [Senna] 8.6 mg PO HS PRN 07/02/19 07/02/19 History Dronabinol [Marinol] 2.5 mg PO AC-BID #30 cap 07/03/19 Rx Ibuprofen [Motrin] 400 mg PO Q6HR PRN #30 tab 07/03/19 Rx Allergies Allergy/AdvReac Type Severity Reaction Status Date / Time mushroom Allergy SOB, Verified 07/02/19 12:33 tongue swelling coconut AdvReac gets dizzy Verified 07/02/19 12:33 and had a seizure Physical Exam Vitals: Vital Signs Temp Pulse Resp BP Pulse Ox 07/02/19 15:28 78 07/02/19 15:16 78 07/02/19 13:37 97.7 F 78 18 143/97 100 07/02/19 13:00 125/80 07/02/19 10:33 97.7 F 95 18 119/78 87 L Intake and Output 07/02/19 07/02/19 07/02/19 06:59 14:59 22:59 Other: Weight 38.555 kg General: Alert and Oriented1-2 No Acute Distress Head: Normocytic, Atraumatic Neck: Supple Mouth: No Lesions, No Thrush Eyes: Non-sclerotic No Palpable cervical, supraclavicular, axillary adenopathy Heart: Regular Rate, Regular Rhythm Lungs: Clear to Ausculations, No Wheeze, No Rhonchi, Diminishe bilateral lower lobes, No increased respiratory effort noted Abdomen: Soft, Non-Distended, Non-Tended, BSx4 Extremities: No Edema, Equal Strength Neurological: No Focal Defects: No sensory or motor deficits noted Psych: Calm and cooperative Results CBC & Chem 7: 07/03/19 08:54 07/03/19 08:54 Labs: Abnormal Lab Results - Last 24 Hours (Table) 07/02/19 07/02/19 07/02/19 Range/Units 11:15 11:15 11:15 WBC 2.9 L (3.8-10.6) k/uL RBC 3.48 L (3.80-5.40) m/uL Hgb 11.0 L (11.4-16.0) gm/dL Hct 33.7 L (34.0-46.0) % Lymphocytes # 0.5 L (1.0-4.8) k/uL APTT 41.5 H (22.0-30.0) sec Sodium 135 L (137-145) mmol/L POC Glucose (mg/dL) (75-99) mg/dL Total Protein 5.9 L (6.3-8.2) g/dL Urine Appearance (Clear) Urine Protein (Negative) Urine Ketones (Negative) Ur Leukocyte Esterase (Negative) Urine WBC (0-5) /hpf Ur Squamous Epith Cells (0-4) /hpf Urine Bacteria (None) /hpf Hyaline Casts (0-2) /lpf Urine Mucus (None) /hpf Urine Opiates Screen (NotDetected) Ur Oxycodone Screen (NotDetected) U Marijuana (THC) Screen (NotDetected) 07/02/19 07/02/19 Range/Units 11:58 12:43 WBC (3.8-10.6) k/uL RBC (3.80-5.40) m/uL Hgb (11.4-16.0) gm/dL Hct (34.0-46.0) % Lymphocytes # (1.0-4.8) k/uL APTT (22.0-30.0) sec Sodium (137-145) mmol/L POC Glucose (mg/dL) 74 L (75-99) mg/dL Total Protein (6.3-8.2) g/dL Urine Appearance Cloudy H (Clear) Urine Protein Trace H (Negative) Urine Ketones Trace H (Negative) Ur Leukocyte Esterase Small H (Negative) Urine WBC 16 H (0-5) /hpf Ur Squamous Epith Cells 9 H (0-4) /hpf Urine Bacteria Rare H (None) /hpf Hyaline Casts 8 H (0-2) /lpf Urine Mucus Moderate H (None) /hpf Urine Opiates Screen Detected H (NotDetected) Ur Oxycodone Screen Detected H (NotDetected) U Marijuana (THC) Screen Detected H (NotDetected) Assessment and Plan Plan: Assessment and Recommendations: Confusion and altered mental status - probably toxic encephalopathy from multiple opiate medications, - Need to consider Recurrent Mets to brain, rec MRI as outpatient. Dehydration: Patient will be started on IV fluids secondary to poor peripheral intake Anorexia and cachexia secondary to cancer patient will benefit benefit from Marinol which was stable on discharge. Small Cell lung cancer: with the metastatic disease to brain - On Tecentriq Increased TSH: - Will need to check cortisol and then adjust synthroid - Must follow-up with endocrinology Discussed with primary team Physician attest: I have completed the full history and physical and agree with dictation. Dictated as a scribe
== END 2019-07-03 16:00 ==
LOC: EC 10:32 → EEVIPCON 13:21 → 5NMEDONC 13:21
PROVIDERS: ADMIT Internal Medicine; ATTEND Internal Medicine
DX: R41.82 Altered mental status, unspecified (principal); T40.605A Adverse effect of unspecified narcotics, initial encounter; C34.90 Malignant neoplasm of unspecified part of unspecified bronchus or lung; C79.31 Secondary malignant neoplasm of brain; J43.9 Emphysema, unspecified; E86.0 Dehydration; E44.0 Moderate protein-calorie malnutrition; R64 Cachexia; H91.90 Unspecified hearing loss, unspecified ear; F17.210 Nicotine dependence, cigarettes, uncomplicated; F41.9 Anxiety disorder, unspecified; F32.9 Major depressive disorder, single episode, unspecified; K21.9 Gastro-esophageal reflux disease without esophagitis; R07.0 Pain in throat; M54.2 Cervicalgia; R13.0 Aphagia; M19.90 Unspecified osteoarthritis, unspecified site; L40.9 Psoriasis, unspecified; G40.909 Epilepsy, unspecified, not intractable, without status epilepticus; F12.90 Cannabis use, unspecified, uncomplicated; Z79.51 Long term (current) use of inhaled steroids; Z79.890 Hormone replacement therapy; Z79.891 Long term (current) use of opiate analgesic; Z79.899 Other long term (current) drug therapy; Z91.018 Allergy to other foods; Z90.710 Acquired absence of both cervix and uterus; Z82.49 Family history of ischemic heart disease and other diseases of the circulatory system
CPT/HCPCS: 96361 ×3; 96372 ×2; 96374; 99285; 36415; 94640 ×2; 93005; 97161; 97166; 84439; 80053 ×2; 84443; 82533; 85025 ×2; 85610; 85730; 81001; 80306; 87086; 71046; 70450; G0378 ×2; S4990; J1644 ×2; J1642